=== PATIENT | female | born 1990 | race Hispanic/Latino ===

== ENCOUNTER 2022-08-19 17:01 | Inpatient (IN) | payer MEDICAID, OTHER ==
[~2022-08-19] VITALS: Ht 160 cm; Wt 108.9 kg
[2022-08-19] MEDS ORDERED: PHENAZOPYRIDINE HCL 200 MG TABLET PO ONE (17:30)
[2022-08-19 17:48] LABS: BASOPHILS % (AUTO) 0.3 % (0.0-5.0); EOSINOPHILS % (AUTO) 1.1 % (0.0-8.0); HEMATOCRIT 42.2 % (36-48); LYMPHOCYTES % (AUTO) 18.1 % (21.0-51.0); MEAN CORPUSCULAR HEMOGLOBIN 28.7 pg (27.0-33.0); MEAN CORPUSCULAR HGB CONC 33.2 g/dL (32.0-36.0); MEAN CORPUSCULAR VOLUME 86.7 fL (79-99); NEUTROPHILS % (AUTO) 73.2 % (40.0-77.0); PLATELET COUNT (AUTO) 298 K/uL (130-400); RED BLOOD CELL COUNT(AUTO) 4.87 MIL/uL (4.00-5.50); RED CELL DISTRIBUTION WIDTH 11.9 % (11.0-15.5); WHITE BLOOD COUNT (AUTO) 9.9 K/uL (4.8-10.8)
[2022-08-19 17:49] LABS: APPEARANCE,URINE CLOUDY (CLEAR); BILIRUBIN,URINE NEGATIVE (NEGATIVE); COLOR,URINE YELLOW (YELLOW); GLUCOSE, URINE (UA) NEGATIVE (NEGATIVE); KETONES,URINE NEGATIVE (NEGATIVE); LEUKOCYTE ESTERASE ,URINE 500 Leu/uL (NEGATIVE); NITRATE,URINE 2+ (NEGATIVE); PH,URINE 6.5 (5.0-8.0); PROTEIN,URINE 30 mg/dL (NEGATIVE); UROBILINOGEN,URINE 0.2 mg/dL (0.2-1.0)
[2022-08-19 17:53] LABS: HCG,QUALITATIVE URINE NEGATIVE (NEGATIVE)
[2022-08-19 17:56] LABS: CREATININE 0.9 mg/dL (0.5-1.5); POTASSIUM 3.8 mmol/L (3.5-5.1)
[2022-08-19 18:04] LABS: BACTERIA,URINE MOD /HPF (None Seen); MUCUS,URINE RARE LPF (None Seen); SQUAMOUS EPITHELIAL CELL,UR MOD /HPF (0-2); WBC,URINE 51-100 /HPF (0-1); YEAST,URINE BUDDING MANY /HPF (None Seen)
[2022-08-19 18:05] LABS: CRP QUANTITATIVE 50.1 mg/L (0.00-9.0); TOTAL PROTEIN, SERUM 8.4 g/dL (6.0-8.3)
[2022-08-19] MEDS ORDERED: PHEN-847 PO (18:24)
[2022-08-19] MEDS ORDERED: [UNRECOGNIZED DRUG - CODE] PO (18:24)
[2022-08-19] MEDS ORDERED: FLUC150T PO (18:24)
[2022-08-19] MEDS ORDERED: CEFTRIAXONE 1G VIAL IM ONE (18:30)
[2022-08-19] MEDS ORDERED: FLUCONAZOLE 100 MG TAB PO ONE (18:30)
[2022-08-19] MEDS ORDERED: MORPHINE 4 MG SYG IVP ONE (19:30)
[2022-08-19] MEDS ORDERED: 0.9%NACL 1000ML 1,000 ML IV SCH (19:30)
[2022-08-19] MEDS ORDERED: ONDANSETRON 4MG INJ IVP ONE (19:30)
[2022-08-19] MEDS: CEFTRIAXONE 1G VIAL IV SCH (20:23)
[2022-08-19] MEDS: 0.9%NACL 1000ML 1,000 ML IV SCH (20:24)
[2022-08-19] MEDS: FAMOTIDINE 20MG VIAL IV SCH (20:25)
[2022-08-19] MEDS ORDERED: MORPHINE 2 MG SYG IV PRN (20:30)
[2022-08-19] MEDS ORDERED: ACETAMINOPHEN 325 MG TAB PO PRN (20:30)
[2022-08-19 23:40] VITALS: BP 121/79
[2022-08-19] MEDS: MORPHINE 4 MG SYG IV PRN (23:56)
[2022-08-20] MEDS: 0.9%NACL 1000ML 1,000 ML IV SCH ×3 (00:01→23:57)
[2022-08-20 03:07] VITALS: BP 108/63
[2022-08-20 06:16] LABS: BASOPHILS % (AUTO) 0.4 % (0.0-5.0); EOSINOPHILS % (AUTO) 1.1 % (0.0-8.0); HEMATOCRIT 39.2 % (36-48); LYMPHOCYTES % (AUTO) 17.7 % (21.0-51.0); MEAN CORPUSCULAR HEMOGLOBIN 28.8 pg (27.0-33.0); MEAN CORPUSCULAR HGB CONC 32.9 g/dL (32.0-36.0); MEAN CORPUSCULAR VOLUME 87.5 fL (79-99); MONOCYTES % (AUTO) 7.6 % (3.0-13.0); NEUTROPHILS % (AUTO) 72.8 % (40.0-77.0); PLATELET COUNT (AUTO) 281 K/uL (130-400); RED BLOOD CELL COUNT(AUTO) 4.48 MIL/uL (4.00-5.50); WHITE BLOOD COUNT (AUTO) 8.6 K/uL (4.8-10.8)
[2022-08-20 06:29] LABS: CREATININE 0.8 mg/dL (0.5-1.5); MAGNESIUM 1.9 mg/dL (1.80-2.40); PHOSPHORUS 2.7 mg/dL (2.5-4.9)
[2022-08-20 06:44] LABS: INR 0.93 (0.85-1.15); PROTHROMBIN TIME 10.2 SEC (9.6-11.6)
[2022-08-20 06:45] LABS: PARTIAL THROMBOPLASTIN TIME 26.8 SEC (26.3-35.5)
[2022-08-20 07:50] VITALS: BP 115/70
[2022-08-20 08:32] LABS: HEMOGLOBIN A1C 5.4 % (4.0-6.0)
[2022-08-20 08:34] LABS: AMPHET/METH SCREEN,URINE NEGATIVE (NEGATIVE); BARBITURATE SCREEN, URINE NEGATIVE (NEGATIVE); BENZODIAZEPINES SCREEN,URINE NEGATIVE (NEGATIVE); CANNABINOID SCREEN,URINE NEGATIVE (NEGATIVE); COCAINE SCREEN,URINE NEGATIVE (NEGATIVE); OPIATE SCREEN,URINE NEGATIVE (NEGATIVE); PHENCYCLIDINE SCREEN,URINE NEGATIVE (NEGATIVE)
[2022-08-20] MEDS: FAMOTIDINE 20MG VIAL IV SCH ×2 (08:40→20:13)
[2022-08-20 08:44] LABS: ALBUMIN 3.4 g/dL (3.5-5.0); TOTAL PROTEIN, SERUM 7.2 g/dL (6.0-8.3)
[2022-08-20] MEDS: POLYETHYLENE GLYCOL 3350 17 GM POWD.PACK PO SCH (09:38)
[2022-08-20] MEDS: MORPHINE 4 MG SYG IV PRN (09:57)
[2022-08-20] MEDS: ONDANSETRON 4MG INJ IV PRN (10:50)
[2022-08-20 11:30] VITALS: BP 114/67
[2022-08-20] MEDS: KETOROLAC 15MG/ML VIAL (15MG/ML) IV PRN ×2 (13:12→20:13)
[2022-08-20] MEDS ORDERED: SOLU-MEDROL 125MG VIAL IVP SCH (15:00)
[2022-08-20 15:55] VITALS: BP 106/67
[2022-08-20] MEDS ORDERED: MORPHINE 4 MG SYG IV PRN (16:00)
[2022-08-20 19:25] VITALS: BP 119/67
[2022-08-20] MEDS: CEFTRIAXONE 1G VIAL IV SCH (20:14)
[2022-08-20 20:52] LABS: HEPATITIS A IGM ANTIBODY Non-Reactive (Nonreactive); HEPATITIS B CORE IGM ANTIBODY Non-Reactive (Negative); HEPATITIS B SURFACE ANTIGEN Non-Reactive (Nonreactive); HEPATITIS C ANTIBODY Non-Reactive (Nonreactive)
[2022-08-20 23:05] VITALS: BP 110/60
[2022-08-21 03:39] VITALS: BP 128/70
[2022-08-21] MEDS: ONDANSETRON 4MG INJ IV PRN (03:42)
[2022-08-21] MEDS: KETOROLAC 15MG/ML VIAL (15MG/ML) IV PRN ×2 (03:42→13:27)
[2022-08-21 07:36] VITALS: BP 119/75
[2022-08-21] MEDS: POLYETHYLENE GLYCOL 3350 17 GM POWD.PACK PO SCH (08:56)
[2022-08-21] MEDS: FAMOTIDINE 20MG VIAL IV SCH (08:56)
[2022-08-21] MEDS ORDERED: FLUCONAZOLE 100 MG TAB PO SCH (09:00)
[2022-08-21 09:19] LABS: MEAN CORPUSCULAR HEMOGLOBIN 28.7 pg (27.0-33.0); MEAN CORPUSCULAR HGB CONC 32.4 g/dL (32.0-36.0); MEAN CORPUSCULAR VOLUME 88.8 fL (79-99); RED BLOOD CELL COUNT(AUTO) 4.28 MIL/uL (4.00-5.50); RED CELL DISTRIBUTION WIDTH 11.9 % (11.0-15.5); WHITE BLOOD COUNT (AUTO) 15.4 K/uL (4.8-10.8)
[2022-08-21 09:35] LABS: ALBUMIN 3.2 g/dL (3.5-5.0); BILIRUBIN,DIRECT 0.3 mg/dL (0.0-0.3); CREATININE 0.8 mg/dL (0.5-1.5); TOTAL PROTEIN, SERUM 7.2 g/dL (6.0-8.3)
[2022-08-21] MEDS ORDERED: LACTULOSE 20 GM/30 ML UDCUP PO PRN (11:30)
[2022-08-21 11:48] VITALS: BP 122/73
== END 2022-08-21 16:50 | disposition home or self-care (01) | DRG 690 ==
LOC: EDH 17:01 → EDHIP 17:02 → WSH 23:50
PROVIDERS: ADMIT Internal Medicine; ATTEND Internal Medicine
DX: N39.0 Urinary tract infection, site not specified (principal); Z68.41 Body mass index [BMI] 40.0-44.9, adult; Z20.822 Contact with and (suspected) exposure to COVID-19; E66.01 Morbid (severe) obesity due to excess calories; F17.210 Nicotine dependence, cigarettes, uncomplicated; R51.9 Headache, unspecified; F41.1 Generalized anxiety disorder; Z90.49 Acquired absence of other specified parts of digestive tract
CPT/HCPCS: 36415; 74176; 74181; 76705; 80048; 80053; 80074; 80076; 80305; 81001; 81025; 83036; 83605; 83690; 83735; 84100; 84145; 85025; 85027; 85610; 85730; 86140; 86850; 86900; 86901; 87040; 87077; 87088; 87186; 87486; 87635; 87797; 93005; G0378; J0696; J1885; J2270; J2405; J2930; J3490; J7030

== ENCOUNTER 2023-09-07 18:11 | Emergency (ER) | payer BC ==
[~2023-09-07] VITALS: Ht 160 cm; Wt 104.3 kg
[2023-09-07 18:17] VITALS: BP 143/100; PULSE 104; RESP 18; O2SAT 96
[2023-09-07 18:47] LABS: BASOPHILS # (AUTO) 0.01 K/uL (0.00-0.20); BASOPHILS % (AUTO) 0.2 % (0.0-5.0); EOSINOPHILS # (AUTO) 0.01 K/uL (0.00-0.70); EOSINOPHILS % (AUTO) 0.2 % (0.0-8.0); HEMATOCRIT 40.5 % (36-48); IMMATURE GRANULOCYTE ABSOLUTE 0.01 K/uL (0-1); LYMPHOCYTES # (AUTO) 0.4 K/uL (1.0-4.8); LYMPHOCYTES % (AUTO) 6.8 % (21.0-51.0); MEAN CORPUSCULAR HEMOGLOBIN 29.5 pg (27.0-33.0); MEAN CORPUSCULAR HGB CONC 33.3 g/dL (32.0-36.0); MEAN CORPUSCULAR VOLUME 88.6 fL (79-99); MONOCYTES # (AUTO) 0.4 K/uL (0.1-1.0); NEUTROPHILS # (AUTO) 4.4 K/uL (1.8-7.7); NEUTROPHILS % (AUTO) 84.6 % (40.0-77.0); PLATELET COUNT (AUTO) 243 K/uL (130-400); RED BLOOD CELL COUNT(AUTO) 4.57 MIL/uL (4.00-5.50); RED CELL DISTRIBUTION WIDTH 12.4 % (11.0-15.5); WHITE BLOOD COUNT (AUTO) 5.1 K/uL (4.8-10.8)
[2023-09-07 18:52] LABS: RAPID GROUP A STREP negative (NEGATIVE)
[2023-09-07 18:54] LABS: SARS-CoV-2, RNA, NAAT NEGATIVE SARS CoV-2 (NEGATIVE)
[2023-09-07 18:57] LABS: CREATININE 0.8 mg/dL (0.5-1.5); POTASSIUM 3.4 mmol/L (3.5-5.1)
[2023-09-07 19:02] LABS: INFLUENZA TYPE B Negative For Type B (NEGATIVE)
[2023-09-07 19:07] LABS: APPEARANCE,URINE CLOUDY (CLEAR); BILIRUBIN,URINE NEGATIVE (NEGATIVE); COLOR,URINE YELLOW (YELLOW); GLUCOSE, URINE (UA) NEGATIVE (NEGATIVE); KETONES,URINE 10 mg/dL (NEGATIVE); LEUKOCYTE ESTERASE ,URINE NEGATIVE Leu/uL (NEGATIVE); NITRATE,URINE NEGATIVE (NEGATIVE); OCCULT BLOOD,URINE NEGATIVE (NEGATIVE); PROTEIN,URINE 20 mg/dL (NEGATIVE); UROBILINOGEN,URINE 3 mg/dL (0.2-1.0)
[2023-09-07 19:09] LABS: INFLUENZA TYPE A Positive For Type A (NEGATIVE)
[2023-09-07 19:12] LABS: HCG,QUALITATIVE URINE NEGATIVE (NEGATIVE)
[2023-09-07] MEDS ORDERED: OSEL75 PO (19:12)
[2023-09-07 19:13] LABS: ADD UA MICROSCOPIC YES
[2023-09-07 19:16] LABS: BACTERIA,URINE RARE /HPF (None Seen); MUCUS,URINE RARE LPF (None Seen); RBC,URINE 0-1 /HPF (0-1); SQUAMOUS EPITHELIAL CELL,UR MOD /HPF (0-2); YEAST,URINE BUDDING FEW /HPF (None Seen)
== END 2023-09-07 19:31 | disposition home or self-care (01) ==
LOC: EDH 18:11
DX: J11.1 Influenza due to unidentified influenza virus with other respiratory manifestations (principal); Z20.822 Contact with and (suspected) exposure to COVID-19
CPT/HCPCS: 99284; 71045; 87635; 84484; 80048; 85025; 87880; 87804 ×2; 81001; 81025; 36415; 93005; C9803

== ENCOUNTER → 2024-04-03 | Outpatient (CLI) | payer OTHER ==
[~2024-04-03] VITALS: Ht 7.6 cm; Wt 111.9 kg
[~2024-04-03] MED LIST: OSEL75 PO
== END | disposition home or self-care (01) ==
LOC: DTH 14:25
PROVIDERS: ATTEND Surgery
DX: E66.01 Morbid (severe) obesity due to excess calories (principal); M19.91 Primary osteoarthritis, unspecified site; K21.9 Gastro-esophageal reflux disease without esophagitis
CPT/HCPCS: 97802

== ENCOUNTER 2024-06-07 08:00 | Inpatient (IN) | payer OTHER ==
[~2024-06-07] VITALS: Ht 160 cm; Wt 108.2 kg
[2024-06-07 09:28] LABS: BASOPHILS # (AUTO) 0.02 K/uL (0.00-0.20); BASOPHILS % (AUTO) 0.3 % (0.0-5.0); EOSINOPHILS # (AUTO) 0.09 K/uL (0.00-0.70); EOSINOPHILS % (AUTO) 1.3 % (0.0-8.0); HEMATOCRIT 45.3 % (36-48); IMMATURE GRANULOCYTE ABSOLUTE 0.02 K/uL (0-1); LYMPHOCYTES # (AUTO) 1.7 K/uL (1.0-4.8); LYMPHOCYTES % (AUTO) 23.8 % (21.0-51.0); MEAN CORPUSCULAR HEMOGLOBIN 29.1 pg (27.0-33.0); MEAN CORPUSCULAR HGB CONC 32.2 g/dL (32.0-36.0); MEAN CORPUSCULAR VOLUME 90.2 fL (79-99); MONOCYTES # (AUTO) 0.7 K/uL (0.1-1.0); MONOCYTES % (AUTO) 10.1 % (3.0-13.0); NEUTROPHILS # (AUTO) 4.5 K/uL (1.8-7.7); NEUTROPHILS % (AUTO) 64.2 % (40.0-77.0); PLATELET COUNT (AUTO) 307 K/uL (130-400); RED BLOOD CELL COUNT(AUTO) 5.02 MIL/uL (4.00-5.50); RED CELL DISTRIBUTION WIDTH 12.1 % (11.0-15.5)
[2024-06-07 09:34] LABS: CREATININE 0.9 mg/dL (0.5-1.0); POTASSIUM 4.2 mmol/L (3.5-5.1)
[2024-06-07] MEDS ORDERED: DIPH25CA85 PO (09:50)
[2024-06-07] MEDS ORDERED: ACET-2743 PO (09:50)
[2024-06-07 09:51] LABS: INR 1.05 (0.85-1.15); PROTHROMBIN TIME 11.3 SEC (9.6-11.6)
[2024-06-19] VITALS (28 sets, daily range): BP systolic 105–159; BP diastolic 64–96; PULSE 70–82; RESP 15–20; TEMP 97–98.4; O2SAT 96–98
[2024-06-19] MEDS: CLINDAMYCIN IVPB 900MG/50ML 50 ML IV ONE (06:34)
[2024-06-19] MEDS: LACTATED RINGERS 1000ML 1,000 ML IV ONE (06:34)
[2024-06-19] MEDS ORDERED: BUPIvacaine/PF 0.25% 30ML VIAL IJ ONE (07:03)
[2024-06-19] MEDS ORDERED: BUPIvacaine/PF 0.25% 10ML VIAL IJ ONE (07:03)
[2024-06-19] MEDS: BUPIvacaine/PF 0.25% 30ML VIAL IJ ONE (07:24)
[2024-06-19] MEDS ORDERED: proPOFol 10 MG/ML 20ML VIAL IV ONE (07:28)
[2024-06-19] MEDS ORDERED: MIDAZOLAM HCL 1 MG/ML 2ML VIAL ONE (07:28)
[2024-06-19] MEDS ORDERED: LIDOCAINE HCL MPF 1% 5ML VIAL ONE (07:28)
[2024-06-19] MEDS ORDERED: rocuRONium bROMide 10MG/1ML 5ML VL ONE ×2 (07:28→08:07)
[2024-06-19] MEDS ORDERED: FENTanyl CITRate PF 50 MCG/1 ML 2ML VIAL ONE ×2 (07:29→08:08)
[2024-06-19] MEDS ORDERED: dexaMETHasone SOD PHOSPHATE 10MG/ML 1ML VIAL ONE (07:50)
[2024-06-19] MEDS ORDERED: ondanSETRON 4MG INJ ONE (07:50)
[2024-06-19] MEDS ORDERED: NEOSTIGMINE METHYLSULFATE 1MG/ML IV ONE (09:38)
[2024-06-19] MEDS ORDERED: GLYCOPYRROLATE 0.2 MG/ML 5 ML VIAL ONE (09:38)
[2024-06-19] MEDS: MEPERIDINE-PF 25 MG/ML SYG ONE (11:27)
[2024-06-19] MEDS: ondanSETRON 4MG INJ IVP PRN (12:32)
[2024-06-19] MEDS: acetaMINOPHEN 1,000 MG/100 ML VIAL IV ONE (12:33)
[2024-06-19] MEDS: FAMOTIDINE 20MG VIAL IV ONE (12:34)
[2024-06-19] MEDS: LACTATED RINGERS 1000ML 1,000 ML IV SCH (12:37)
[2024-06-19] MEDS: CLINDAMYCIN IVPB 900MG/50ML 50 ML IV SCH ×2 (13:25→20:28)
[2024-06-19] MEDS: morPHINE 4 MG SYG IVP PRN (16:25)
[2024-06-19] MEDS: FAMOTIDINE 20MG VIAL IV SCH (19:44)
[2024-06-20] VITALS (7 sets, daily range): BP systolic 122–135; BP diastolic 70–86; PULSE 61–77; RESP 16–18; TEMP 98–98.4; O2SAT 96
[2024-06-20] MEDS: ketOROlac 30MG VIAL (30MG/ML) IM PRN (02:54)
[2024-06-20 05:57] LABS: BASOPHILS # (AUTO) 0.02 K/uL (0.00-0.20); BASOPHILS % (AUTO) 0.2 % (0.0-5.0); EOSINOPHILS # (AUTO) 0.01 K/uL (0.00-0.70); EOSINOPHILS % (AUTO) 0.1 % (0.0-8.0); HEMATOCRIT 39.1 % (36-48); IMMATURE GRANULOCYTE ABSOLUTE 0.05 K/uL (0-1); LYMPHOCYTES # (AUTO) 1.8 K/uL (1.0-4.8); MEAN CORPUSCULAR HEMOGLOBIN 28.7 pg (27.0-33.0); MEAN CORPUSCULAR HGB CONC 32.5 g/dL (32.0-36.0); MEAN CORPUSCULAR VOLUME 88.5 fL (79-99); MONOCYTES # (AUTO) 1.4 K/uL (0.1-1.0); MONOCYTES % (AUTO) 10.9 % (3.0-13.0); NEUTROPHILS # (AUTO) 9.6 K/uL (1.8-7.7); NEUTROPHILS % (AUTO) 74.4 % (40.0-77.0); PLATELET COUNT (AUTO) 337 K/uL (130-400); RED BLOOD CELL COUNT(AUTO) 4.42 MIL/uL (4.00-5.50); WHITE BLOOD COUNT (AUTO) 12.8 K/uL (4.8-10.8)
[2024-06-20 06:07] LABS: CREATININE 1.3 mg/dL (0.5-1.0); POTASSIUM 3.9 mmol/L (3.5-5.1)
[2024-06-20] MEDS: ENOXAPARIN SODIUM 30 MG/0.3 ML SQ SCH (10:08)
[2024-06-20] MEDS: acetaMINOPHEN/coDEINE 120/12MG 5ML PO PRN ×2 (12:21→16:55)
[2024-06-20] MEDS ORDERED: ENOXAPARIN SODIUM 30 MG/0.3 ML SQ SCH (21:00)
[2024-06-21] VITALS: BP 129/75; PULSE 74; RESP 18; TEMP 98.3
[2024-06-21 06:00] VITALS: BP 130/92; PULSE 77; RESP 18; TEMP 98.3
[2024-06-21 08:00] VITALS: O2SAT 98
[2024-06-21 08:03] VITALS: BP 127/87; PULSE 74; RESP 16; TEMP 98.2
[2024-06-21 11:46] VITALS: BP 124/79; PULSE 62; RESP 18; TEMP 98.5
== END 2024-06-21 13:20 | disposition home or self-care (01) | DRG 621 ==
LOC: CANPREIN → DAHIP 06-19 05:47 → 3CH 06-19 12:15
PROVIDERS: ADMIT Surgery; ATTEND Surgery
PROC: 8E0W4CZ Robotic Assisted Procedure of Trunk Region, Percutaneous Endoscopic Approach (ICD-10-PCS; 2024-06-19)
PROC: 0D164ZA Bypass Stomach to Jejunum, Percutaneous Endoscopic Approach (ICD-10-PCS; principal; 2024-06-19 07:30)
DX: E66.01 Morbid (severe) obesity due to excess calories (principal); Z68.41 Body mass index [BMI] 40.0-44.9, adult; Z88.0 Allergy status to penicillin
CPT/HCPCS: 36415; 43235; 71045; 80048; 81025; 84703; 85025; 85610; 85730; 93005; G0378; J1100; J1650; J1885; J2175; J2250; J2270; J2405; J2704; J2710; J3010; J3490; J7030; J7120; A4215; A4216; A4221; A4222; A4223; A4600; A4663; A4930; A6260; C1769; G0168; G8980-CH; G8983-CI; J0665

== ENCOUNTER 2024-08-25 13:29 | Inpatient (IN) | payer BC ==
[~2024-08-25] VITALS: Ht 160 cm; Wt 98.0 kg
[~2024-08-25 13:29] MED LIST changes: +ACET-2743 PO; +DIPH25CA85 PO; -OSEL75 PO
[2024-08-25 14:02] LABS: BASOPHILS # (AUTO) 0.02 K/uL (0.00-0.20); BASOPHILS % (AUTO) 0.3 % (0.0-5.0); EOSINOPHILS # (AUTO) 0.01 K/uL (0.00-0.70); EOSINOPHILS % (AUTO) 0.1 % (0.0-8.0); HEMATOCRIT 38.8 % (36-48); IMMATURE GRANULOCYTE ABSOLUTE 0.03 K/uL (0-1); LYMPHOCYTES # (AUTO) 1.7 K/uL (1.0-4.8); LYMPHOCYTES % (AUTO) 21.3 % (21.0-51.0); MEAN CORPUSCULAR HEMOGLOBIN 28.8 pg (27.0-33.0); MEAN CORPUSCULAR HGB CONC 32.2 g/dL (32.0-36.0); MEAN CORPUSCULAR VOLUME 89.4 fL (79-99); MONOCYTES # (AUTO) 0.4 K/uL (0.1-1.0); MONOCYTES % (AUTO) 5.7 % (3.0-13.0); NEUTROPHILS # (AUTO) 5.6 K/uL (1.8-7.7); NEUTROPHILS % (AUTO) 72.2 % (40.0-77.0); PLATELET COUNT (AUTO) 304 K/uL (130-400); RED BLOOD CELL COUNT(AUTO) 4.34 MIL/uL (4.00-5.50); RED CELL DISTRIBUTION WIDTH 13.3 % (11.0-15.5); WHITE BLOOD COUNT (AUTO) 7.7 K/uL (4.8-10.8)
[2024-08-25 14:15] LABS: CREATININE 0.9 mg/dL (0.5-1.0); POTASSIUM 3.7 mmol/L (3.5-5.1)
[2024-08-25 14:19] LABS: ALBUMIN 3.7 g/dL (3.5-5.0); BILIRUBIN,DIRECT 0.2 mg/dL (0.0-0.3); BILIRUBIN,TOTAL 0.4 mg/dL (0.2-1.0); TOTAL PROTEIN, SERUM 8.2 g/dL (6.0-8.3)
--- NOTE | 2024-08-25 14:28 | ERN ---
ED Note History of Present Illness Stated Complaint: CHEST PAIN Chief Complaint: Chest Pain Time Seen by MD: 16:36 Dictation: 34-year-old female presents to the ED for evaluation of abdominal pain onset 2 days ago. Patient reports nausea, vomiting, chills, constipation, decreased appetite but denies any fever, diarrhea or any other associated symptoms at this time. Patient states she had a gastric bypass surgery performed on June 22, 2024 and then a bowel obstruction repair on June 27, 2024 by at [facility]. Allergies: Coded Allergies: Penicillins (Unverified Allergy, Unknown, 08/19/22) Home Meds Active Scripts Lidocaine (Lidoderm Patch 5%) 5 % Patch, 1 PATCH TP DAILY for 30 Days, #30 PATCH 0 Refills may wear up to 12 hours Prov:NEGRITO BUCHANAN MD 09/03/24 Reported Medications Diphenhydramine HCl (Benadryl) 25 Mg Capsule, 25 MG PO AD PRN for ALLERGIES, CAP 06/07/24 Acetaminophen (Tylenol Extra Strength) 500 Mg Tablet, 1000 MG PO AD PRN for PAIN, TAB 06/07/24 Past Medical History Past Medical History: No Pertinent History Additional Past Medical Hx: Morbidly obese Surgical History: Other, Bariatric Surgery Surgical History Other: BOWEL OBSTRUCTION REPAIR Family History: Negative Social History: Lives with family Review of System Dictation Constitutional: Positive for chills, decreased appetite, negative for fever Eyes: Negative for injury, pain,redness, and discharge ENT: Negative for injury,pain or swelling Cardiovascular: Negative for chest pain, palpitations, and edema Respiratory: Negative for shortness of breath, cough, and wheezing, Abdomen/GI: Positive for abdominal pain, nausea, vomiting and constipation negative for diarrhea Back: Negative for injury and pain : Negative for injury, bleeding and discharge MS/Extremity: Negative for injury and deformity Skin: Negative for rash, and discoloration Neuro: Negative for headache, weakness, numbness, tingling, and seizure Psych: Negative for suicide ideation, homicidal ideation, and hallucinations Initial Vital Sign VS Vital Signs Date Time Temp Pulse Resp B/P (MAP) Pulse Ox O2 Delivery O2 Flow Rate FiO2 08/25/24 13:33 97.0 98 20 132/90 99 Room Air 0 08/25/24 13:58 21 Physical Exam Dictation General: awake, alert, NAD Head/Face: Normocephalic, atraumatic Eyes: PERRL, EOMI, vision at baseline ENT: oral cavity clear, TMs clear, no signs of infection Neck: Trachea midline, supple, no nuchal rigidity Cardiovascular: RRR, normal S1/S2, No MRGs, no JVD Respiratory: CTAB, no respiratory distress, No rales or wheezes Abdomen: Soft, non-tender, non-distended, wound with wet to dry dressings to mid abdominal region Skin: Warm, dry, normal turgor, no rash MS/Extremity: Pulses equal, no cyanosis, neurovascular intact, FROM Neuro: COAx4, GCS 15, strength 5/5, CN 2-12 intact, normal cerebellar exam, normal gait, Psych: Normal behavior, mood, and affect normal Results (Laboratory/Radiology) Laboratory/Radiology Labs Reviewed?: Yes ED Course ED Course Orders Procedure Category Date Status Time *Nursing CPOE 09/03/24 Transmitted Communication: 12:54 *General Dc DS 09/03/24 Transmitted Instructions 14:36 Medical Decision Making MDM MDM: Differential diagnosis: Small-bowel obstruction, postop, vomiting Previous outside records reviewed: Old ER visits. Need for hospitalization: Patient does meet criteria for hospitalization. Need for emergency major/minor surgery: No Patient's prior external medical records from other ER visits were reviewed by me as indicated. Prior testing and results from previous visits were reviewed. Prior tests were taken into account with medical decision making and resource utilization, independent historian/historians were used to obtain complete medical history. I independently interpreted the test that were performed, results were reviewed by me and considered findings on radiology if ordered. Medical management and examination interpretation discussions were had by me with other qualified healthcare professionals as indicated for the patient's care. vss LABS STABLE UTI+ continues with nausea will admit for Dr Han consult on Tuesday Consult: hospitalist for admission DX & DISP Disposition: Inpatient Departure Impression: Primary Impression: Vomiting Additional Impressions: Post-operative pain, H/O gastric bypass, UTI (urinary tract infection) Condition: Stable Scripts Lidocaine (Lidoderm Patch 5%) 5 % Patch 1 PATCH TP DAILY for 30 Days, #30 PATCH 0 Refills may wear up to 12 hours Prov: NEGRITO BUCHANAN MD 09/03/24 Referrals: SELF,REFERRAL (PCP) I have reviewed, & agreed with my scribe's, documentation. (Entered by Brainda Kelsi, acting as a scribe for Dr. Means) I personally scribed for ELLYN MEANS MD ([email or web address]) on 08/25/24 at 14:28. Electronically submitted by Jacqueline Dolan ([email or web address]). ELLYN MEANS MD Aug 25, 2024 14:28 [facility] DAILY DO Aug 25, 2024 17:49
[2024-08-25 14:31] LABS: B-TYPE NATRIURETIC PEPTIDE < 5 pg/mL (0-100)
[2024-08-25] MEDS: ondanSETRON 4MG INJ IVP ONE (14:31)
[2024-08-25] MEDS: 0.9%NACL 1000ML 1,000 ML IV ONE (14:31)
[2024-08-25] MEDS: morPHINE 4 MG SYG IVP ONE (14:32)
--- NOTE | 2024-08-25 14:40 | NUR ---
PENDING TEST RESULTS FOR CT EXAM.
--- NOTE | 2024-08-25 14:40 | HMCIMG ---
CHEST 1VW HISTORY: Chest pain COMPARISON: 07/10/2024 FINDINGS: A frontal projection of the chest was obtained. No acute pulmonary infiltrates is seen. The heart is normal in size. Prominent interstitial markings are seen. No evidence of aortic calcification is seen. IMPRESSION: 1. No acute pulmonary infiltrate is seen.
--- NOTE | 2024-08-25 15:08 | EKG ---
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
[2024-08-25] MEDS: hydroMORPHone 0.5 MG SYG (0.5MG/0.5ML) IVP ONE (15:52)
--- NOTE | 2024-08-25 17:08 | HMCIMG ---
CT ABD/PEL WO CON RENAL/APPY INDICATION: abdominal pain TECHNIQUE: CT ABD/PEL WO CON RENAL/APPY. Oral contrast was not given. Coronal and sagittal reformats were performed. CT was performed with one or more of the following dose reduction techniques: Automated exposure control, adjustment of the mA and/or kV according to the patient's size, or use of the iterative reconstruction technique. Comparison: None. FINDINGS: The noncontrast nature this study limits evaluation of abdominal viscera. Mild atelectatic changes are seen in the lung bases. There is hepatic steatosis. Cholecystectomy changes are noted. Postop changes are seen in the stomach. The spleen, pancreas, and adrenal glands are within normal limits. No hydronephrosis. The urinary bladder is partially collapsed. IUD is seen in the uterus. No bowel obstruction is seen. Diverticulosis coli without CT evidence of acute diverticulitis. The appendix was not clearly visualized limiting evaluation. Correlate clinically. Midline incision is seen in the lower abdominal/pelvic wall with complex material which may may represent postoperative changes versus dehiscent midline incision. Correlate clinically. Visualized aorta is normal in caliber. No acute osseous findings. IMPRESSION: 1. No bowel obstruction is seen. Diverticulosis coli without CT evidence of acute diverticulitis. The appendix was not clearly visualized limiting evaluation. Correlate clinically. 2. Midline incision is seen in the lower abdominal/pelvic wall with complex material which may may represent postoperative changes versus dehiscent midline incision. Correlate clinically.
[2024-08-25 17:10] LABS: BILIRUBIN,URINE 2 mg/dL (NEGATIVE); GLUCOSE, URINE (UA) NEGATIVE (NEGATIVE); KETONES,URINE NEGATIVE (NEGATIVE); LEUKOCYTE ESTERASE ,URINE NEGATIVE Leu/uL (NEGATIVE); NITRATE,URINE 2+ (NEGATIVE); OCCULT BLOOD,URINE NEGATIVE (NEGATIVE); PROTEIN,URINE 50 mg/dL (NEGATIVE)
[2024-08-25 17:11] LABS: ADD UA MICROSCOPIC YES; HCG,QUALITATIVE URINE NEGATIVE (NEGATIVE)
[2024-08-25 17:12] LABS: APPEARANCE,URINE HAZY (CLEAR); COLOR,URINE ORANGE (YELLOW)
[2024-08-25 17:27] LABS: BACTERIA,URINE FEW /HPF (None Seen); MUCUS,URINE MANY LPF (None Seen); SQUAMOUS EPITHELIAL CELL,UR MANY /HPF (0-2)
[2024-08-25] MEDS: hydroMORPHone 0.5 MG SYG (0.5MG/0.5ML) IVP PRN (18:58)
--- NOTE | 2024-08-25 19:58 | HP ---
[facility] Date of Service: Aug 25, 2024 Time of Service: 19:21 PCP: Oz Howard HISTORY OF PRESENT ILLNESS: This is a 34 year old with past medical history of morbid obesity and bowel obstruction and a surgical history of gastric bypass who presents to the ED for multiple complaints such as :abdominal pain,nausea, chills ,constipation and chest pain which all started 4 days ago.Patient states she had a gastric bypass surgery done on 06/2024 by and patient went home and was admitted on 06/23/2024 for bowel obstruction and on 06/27/2024 she underwent a laparoscopic converted to an open laparotomy small bowel resection and reconstruction of jejunojejunal anastomosis and 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 and patient was on IV antibiotic and TPN and surgical wound required abdominal dressing change TID and patient transitioned to LTAC at [facility] facility.As per patient she was discharged home and being visited by home health nurse .As pre patient her incision site is draining feces smell like and she started having nauseated but no vomiting.Patient reports she started having on and off chest pain and becoming weak.Today symptoms have been becoming worse midsternal chest pain is becoming persistent ,described as chest pressure which radiates to left arm associated with diaphoresis and shortness of breath while laying down.Patient states she called and her PCP who advised her to come to the ED for evaluation.Patient last bowel movement was 5 days ago she sa id. Seen and examined patient in the ER awake,alert and coherent continues to complain of midsternal chest pressure,nausea and abdominal pain around surgical site.Patient also complain of back pain and dysuria.Patient denies fever,vomiting ,palpitation,cough and diarrhea. Latest vital signs temperature 97, heart rate 95, blood pressure 130/85 saturation 99% on room air. Labs: C BC unremarkable. Sodium 135, chloride 98, glucose 112, AST 51, ALT 104 troponin five BNP less than five lipase 99 serum test negative. Urinalysis consistent with urinary tract infection. Chest x-ray result is unremarkable. CT abdomen and pelvis without contrast result revealed no bowel obstruction is seen. Diverticulosis coli without CT evidence of acute diverticulitis. The appendix was not clearly visualized limiting evaluation. Correlate clinically. Midline incision is seen in the lower abdominal/pelvic wall with complex material which may represent post operative changes versus dehiscent midline incision. While in the ER patient received Dilaudid 0.5 mg, 1 L NS bolus, Zofran 4 mg IV and morphine 4 mg IV .As per ER MD to consult on Tuesday .Will admit patient for further medical management. REVIEW OF SYSTEMS CONSTITUTIONAL: Positive chills and diaphoresis Denies fevers or night sweats. No unintentional weight loss reported. NEUROLOGICAL: Denies headache, amaurosis fugax, motor weakness, sensory deficit, vertigo/spinning sensation, gait abnormalities, or tremors. ENT: No hearing loss, otalgia, otorrhea, rhinitis, rhinorrhea, hoarseness, or sore throat. CARDIOVASCULAR: Positive chest pain Denies orthopnea, paroxysmal nocturnal dyspnea, palpitations, life-threatening arrhythmias, claudication. PULMONARY: Positive shortness of breath Denies cough, phlegm/sputum, hemoptysis, pleuritic chest pain. SLEEP: Denies morning headaches, daytime somnolence or napping. Denies difficulty falling asleep, staying asleep, waking from sleep. Denies knowledge of snoring. GASTROINTESTINAL: Positive nausea , constipation and abdominal pain Denies any type of dysphagia to either liquids or solids. Denies pyrosis, early satiety,, diarrhea, constipation, or changes in stool consistency or caliber. Denies co ffee-ground emesis, hematemesis, hematochezia, or melanotic stools. GENITOURINARY: Positive dysuria and low back pain Denies frequency, urgency, nocturia, hematuria or incontinence (Storage/Irritative symptoms.) Low urinary stream, splitting of the voiding stream, terminal dribbling. ENDOCRINOLOGIC: Denies polyuria, polydipsia, polyphagia or heat/cold intolerances. HEMATOLOGIC: Denies thrombophilia/previous clots, or coagulopathy/bleeding disorders. ONCOLOGIC: Denies personal history of malignancy. DERMATOLOGIC: Denies rashes or pruritus. PSYCHIATRIC: Denies any suicidal or homicidal ideation. Denies hallucinations. 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 Patient denies alcohol tobacco and recreational drug use] FAMILY HISTORY: [ Hypertension and diabetes ] Coded Allergies: Penicillins (Unverified Allergy, Unknown, 08/19/22) PHYSICAL EXAM GENERAL APPEARANCE: The patient is awake, alert, and oriented, in no acute cardiopulmonary distress. NEUROLOGICAL: Cranial nerves II-XII grossly intact. Motor is 5/5 in bilateral upper and lower extremities proximal to distal. No sensory deficits. HEENT: Face is symmetric. Pupils are equal and reactive. Extraocular movements are intact. NECK: Supple. No JVD. No thyromegaly. No submental, submandibular, pre- /postauricular, occipital or supraclavicular lymphadenopathy. CHEST: Normal chest expansion. No Telemetry. LUNGS: Absence of any rales, rhonchi or any wheezing. CARDIOVASCULAR: Regular. S1 and S2 normal. No appreciable rubs, murmurs or gallops. ABDOMEN: Soft and nondistended. There is no rebound, voluntary guarding, or rigidity. : Deferred. No Olson. EXTREMITIES: Non-edematous and not cyanotic. No clubbing. Good capillary refill. SKIN: Abdominal incision covered Vital Sign (Last 24 Hours) 08/25/24 13:58 Temp 97.0 Pulse 95 Resp 20 B/P (MAP) 130/85 Pulse Ox 99 O2 Delivery Room Air* O2 Flow Rate 0 FiO2 21 LABS: Laboratory: Test 08/25/24 16:58 08/25/24 13:58 08/25/24 13:38 Range/Units Urine Color ORANGE H YELLOW Urine Appearance HAZY CLEAR Urine pH 6.0 5.0-8.0 Urine Specific [place] 1.028 1.001-1.031 Urine Protein 50 H NEGATIVE mg/dL Urine Glucose (UA) NEGATIVE NEGATIVE mg/dL Urine Ketones NEGATIVE NEGATIVE mg/dL Urine Occult Blood NEGATIVE NEGATIVE Urine Nitrate 2+ H NEGATIVE Urine Bilirubin 2 H NEGATIVE mg/dL Urine Urobilinogen 4.0 H 0.2-1.0 mg/dL Urine Leukocyte Esterase NEGATIVE NEGATIVE Jennifer/uL Urine RBC 2-5 H 0-1 /HPF Urine WBC 11-25 H 0-1 /HPF Urine Squamous Epithelial Cells MANY 0-2 /HPF Urine Bacteria FEW None Seen /HPF Urine HCG, Qualitative NEGATIVE NEGATIVE Serum Test, Qualitative NEGATIVE NEGATIVE White Blood Count 7.7 4.8-10.8 K/uL Red Blood Count 4.34 4.00-5.50 MIL/uL Hemoglobin 12.5 12.0-16.0 g/dL Hematocrit 38.8 36-48 % Mean Corpuscular Volume 89.4 79-99 fL Mean Corpuscular Hemoglobin 28.8 27.0-33.0 pg Mean Corpuscular Hemoglobin Concent 32.2 32.0-36.0 g/dL Red Cell Distribution Width 13.3 11.0-15.5 % Platelet Count 304 130-400 K/uL Mean Platelet Volume 9.3 7.5-10.5 fL Immature Granulocyte % (Auto) 0.4 0-1 % Neutrophils (%) (Auto) 72.2 40.0-77.0 % Lymphocytes (%) (Auto) 21.3 21.0-51.0 % Monocytes (%) (Auto) 5.7 3.0-13.0 % Eosinophils (%) (Auto) 0.1 0.0-8.0 % Basophils (%) (Auto) 0.3 0.0-5.0 % Neutrophils # (Auto) 5.6 1.8-7.7 K/uL Lymphocytes # (Auto) 1.7 1.0-4.8 K/uL Monocytes # (Auto) 0.4 0.1-1.0 K/uL Eosinophils # (Auto) 0.01 0.00-0.70 K/uL Basophils # (Auto) 0.02 0.00-0.20 K/uL Absolute Immature Granulocyte (auto 0.03 0-1 K/uL Nucleated Red Blood Cells 0.0 0.0-0.19 % Sodium Level 135 L 136-145 mmol/L Potassium Level 3.7 3.5-5.1 mmol/L Chloride Level 98 L 101-111 mmol/L Carbon Dioxide Level 29 21-32 mmol/L Blood Urea Nitrogen 9 7-18 mg/dL Creatinine 0.9 0.5-1.0 mg/dL Glomerular Filtration Rate Calc 86 >90 mL/min Random Glucose 112 H 70-105 mg/dL Total Calcium 9.6 8.5-10.1 mg/dL Total Bilirubin 0.4 0.2-1.0 mg/dL Direct Bilirubin 0.2 0.0-0.3 mg/dL Aspartate Amino Transf (AST/SGOT) 51 H 10-37 U/L Alanine Aminotransferase (ALT/SGPT) 104 H 12-78 U/L Alkaline Phosphatase 107 50-136 U/L Total Creatine Kinase 34 21-232 U/L Troponin I High Sensitivity 5 4-50 ng/L B-Type Natriuretic Peptide < 5 0-100 pg/mL Total Protein 8.2 6.0-8.3 g/dL Albumin 3.7 3.5-5.0 g/dL Lipase 99 H 16-77 U/L Current Medications Medications (Trade) Dose Ordered Sig/Ara Route PRN Reason Start Time Stop Time Status Last Admin Dose Admin Hydromorphone HCl (DiLAUDid 0.5MG INJ) 0.5 mg Q4H PRN IVP SEVERE PAIN (7-10) 08/25/24 18:30 08/30/24 18:29 08/25/24 18:58 0.5 MG DIAGNOSTICS / RADIOLOGY: [ ] ASSESSMENT: Chest pain unspecified POA Intractable nausea and abdominal pain POA Acute urinary tract infection POA Postoperative pain POA Recent laparoscopic converted to an open laparotomy small bowel resection and reconstruction of jejunojejunal anastomosis POA Elevated liver enzymes POA Elevated lipase POA Recent small enterocutaneous fistula POA Obesity POA History of gastric bypass POA PLAN: We will admit patient in medical telemetry We will keep patient nothing by mouth We will start patient on Rocephin 2 gram IV for empiric coverage We will start on Famotidine 20 mg IV bid for GI prophylaxis We will replace electrolytes as needed per protocol We will start patient on TPN at 88 mL/hour We will add prn medication for fever,pain,cough and nausea We will reconcile home meds once medlist available We will trend troponin q.6 hours x3 We will request urine toxicology We will request labs in am We will seek general surgery consultation Further orders to follow depending on above results Case discussed with attending physician and came up with above treatment and plan of care. ADVANCED CARE PLANNING 1. Which of the following were discussed? Hospice Care - No Therapeutic options - Yes Advance Directives - No Other discussions - 2. Discussed with who? Patient 3. Voluntary nature of this service was explained to the patient? Yes 4. Amount of time spent - ___19____ 5. Reviewed by Physician? (if this service was performed by NPP) Yes Patient seen and examined by me. Agree with note by GENERAL FOUNDRY WORKER SEE ADDITIONAL ORDERS PER CHART DISCUSSED WITH NURSING STAFF CAROLNY ROBLESP Aug 25, 2024 19:58
[2024-08-25] MEDS ORDERED: cefTRIAXone 1G VIAL 2 GM in 0.9%NACL 100ML 100 ML IV SCH (20:00)
[2024-08-25] MEDS: LACTATED RINGERS 1000ML 1,000 ML IV SCH (20:55)
[2024-08-25] MEDS: CEFTRIAXONE 2GM VIAL IVPB SCH (20:55)
--- NOTE | 2024-08-25 21:15 | NUR ---
PROVIDED REPORT TO [facility] TRANSFERED CARE AT THIS TIME
[2024-08-25] MEDS: FAMOTIDINE 20MG VIAL IV SCH (22:30)
[2024-08-25 23:39] LABS: AMPHET/METH SCREEN,URINE NEGATIVE (NEGATIVE); BARBITURATE SCREEN, URINE NEGATIVE (NEGATIVE); BENZODIAZEPINES SCREEN,URINE NEGATIVE (NEGATIVE); CANNABINOID SCREEN,URINE NEGATIVE (NEGATIVE); COCAINE SCREEN,URINE NEGATIVE (NEGATIVE); OPIATE SCREEN,URINE POSITIVE (NEGATIVE); PHENCYCLIDINE SCREEN,URINE NEGATIVE (NEGATIVE)
--- NOTE | 2024-08-26 | NUR ---
PATIENT NOT ON ANY HOME MEDICATIONS.
--- NOTE | 2024-08-26 00:05 | NUR ---
PATIENT SPOKE WITH DIRECTLY AT 1635. PER PATIENT DR. SLIVA IS AWARE OF HER ADMISSION, HE IS CURRENTLY OUT OF TOWN AND WILL SEE HER ON TUESDAY.
[2024-08-26 02:07] LABS: BASOPHILS # (AUTO) 0.02 K/uL (0.00-0.20); BASOPHILS % (AUTO) 0.3 % (0.0-5.0); EOSINOPHILS # (AUTO) 0.17 K/uL (0.00-0.70); EOSINOPHILS % (AUTO) 2.7 % (0.0-8.0); HEMATOCRIT 32.7 % (36-48); IMMATURE GRANULOCYTE ABSOLUTE 0.01 K/uL (0-1); LYMPHOCYTES # (AUTO) 2.2 K/uL (1.0-4.8); LYMPHOCYTES % (AUTO) 35.1 % (21.0-51.0); MEAN CORPUSCULAR HEMOGLOBIN 28.7 pg (27.0-33.0); MEAN CORPUSCULAR HGB CONC 32.4 g/dL (32.0-36.0); MEAN CORPUSCULAR VOLUME 88.6 fL (79-99); MONOCYTES # (AUTO) 0.5 K/uL (0.1-1.0); MONOCYTES % (AUTO) 7.7 % (3.0-13.0); NEUTROPHILS # (AUTO) 3.5 K/uL (1.8-7.7); PLATELET COUNT (AUTO) 245 K/uL (130-400); RED BLOOD CELL COUNT(AUTO) 3.69 MIL/uL (4.00-5.50); RED CELL DISTRIBUTION WIDTH 13.6 % (11.0-15.5); WHITE BLOOD COUNT (AUTO) 6.4 K/uL (4.8-10.8)
[2024-08-26 02:25] LABS: ALBUMIN 2.9 g/dL (3.5-5.0); BILIRUBIN,TOTAL 0.3 mg/dL (0.2-1.0); CREATININE 0.7 mg/dL (0.5-1.0); MAGNESIUM 1.9 mg/dL (1.80-2.40); POTASSIUM 3.4 mmol/L (3.5-5.1); TOTAL PROTEIN, SERUM 6.4 g/dL (6.0-8.3)
--- NOTE | 2024-08-26 04:52 | NUR ---
patient up to restroom, reports small bowel movement, normal consistency, brown in color, no difficulty or pain with bowel movement
[2024-08-26] MEDS: ondanSETRON 4MG INJ IV PRN (04:57)
[2024-08-26 08:40] VITALS: O2SAT 96
--- NOTE | 2024-08-26 08:43 | PN ---
[facility] PROGRESS NOTE Date of Service: Aug 26, 2024 Time of Service: 08:41 SUBJECTIVE: [ ] The patient has been seen and examined in the emergency room, she remains comfortably in bed, alert oriented x3, hemodynamically stable, BP 110/63, afebrile, saturating normal on room air. She denied chest pain, no shortness a breath, no nausea, no vomiting, no abdominal discomfort. She feels weak. No family members at bedside during my visit. REVIEW OF SYSTEMS CONSTITUTIONAL: Positive chills and diaphoresis Denies fevers or night sweats. No unintentional weight loss reported. NEUROLOGICAL: Denies headache, amaurosis fugax, motor weakness, sensory deficit, vertigo/spinning sensation, gait abnormalities, or tremors. ENT: No hearing loss, otalgia, otorrhea, rhinitis, rhinorrhea, hoarseness, or sore throat. CARDIOVASCULAR: Positive chest pain Denies orthopnea, paroxysmal nocturnal dyspnea, palpitations, life-threatening arrhythmias, claudication. PULMONARY: Positive shortness of breath Denies cough, phlegm/sputum, hemoptysis, pleuritic chest pain. SLEEP: Denies morning headaches, daytime somnolence or napping. Denies difficulty falling asleep, staying asleep, waking from sleep. Denies knowledge of snoring. GASTROINTESTINAL: Positive nausea , constipation and abdominal pain Denies any type of dysphagia to either liquids or solids. Denies pyrosis, early satiety,, diarrhea, constipation, or changes in stool consistency or caliber. Denies coffee-ground emesis, hematemesis, hematochezia, or melanotic stools. GENITOURINARY: Positive dysuria and low back pain Denies frequency, urgency, nocturia, hematuria or incontinence (Storage/Irritative symptoms.) Low urinary stream, splitting of the voiding stream, terminal dribbling. ENDOCRINOLOGIC: Denies polyuria, polydipsia, polyphagia or heat/cold intolerances. HEMATOLOGIC: Denies thrombophilia/previous clots, or coagulopathy/bleeding disorders. ONCOLOGIC: Denies personal history of malignancy. DERMATOLOGIC: Denies rashes or pruritus. PSYCHIATRIC: Denies any suicidal or homicidal ideation. Denies hallucinations. PHYSICAL EXAM GENERAL APPEARANCE: The patient is awake, alert, and oriented, in no acute cardiopulmonary distress. NEUROLOGICAL: Cranial nerves II-XII grossly intact. Motor is 5/5 in bilateral upper and lower extremities proximal to distal. No sensory deficits. HEENT: Face is symmetric. Pupils are equal and reactive. Extraocular movements are intact. NECK: Supple. No JVD. No thyromegaly. No submental, submandibular, pre- /postauricular, occipital or supraclavicular lymphadenopathy. CHEST: Normal chest expansion. No Telemetry. LUNGS: Absence of any rales, rhonchi or any wheezing. CARDIOVASCULAR: Regular. S1 and S2 normal. No appreciable rubs, murmurs or gallops. ABDOMEN: Soft and nondistended. There is no rebound, voluntary guarding, or rigidity. : Deferred. No Olson. EXTREMITIES: Non-edematous and not cyanotic. No clubbing. Good capillary re fill. SKIN: Abdominal incision covered Vital Signs (last 8hr) Date Time Temp Pulse Resp B/P (MAP) Pulse Ox O2 Delivery O2 Flow Rate FiO2 08/26/24 06:45 79 15 110/63 98 Room Air* 0 21 08/26/24 04:52 97.9 76 14 110/73 99 Room Air* 0 21 08/26/24 02:48 66 18 117/69 97 Room Air* 0 21 08/26/24 01:15 98.2 77 18 117/69 98 Room Air* 0 21 LABS: Laboratory: Test 08/26/24 02:00 08/25/24 16:58 08/25/24 13:58 08/25/24 13:38 Range/Units White Blood Count 6.4 4.8-10.8 K/uL Red Blood Count 3.69 L 4.00-5.50 MIL/uL Hemoglobin 10.6 L 12.0-16.0 g/dL Hematocrit 32.7 L 36-48 % Mean Corpuscular Volume 88.6 79-99 fL Mean Corpuscular Hemoglobin 28.7 27.0-33.0 pg Mean Corpuscular Hemoglobin Concent 32.4 32.0-36.0 g/dL Red Cell Distribution Width 13.6 11.0-15.5 % Platelet Count 245 130-400 K/uL Mean Platelet Volume 9.5 7.5-10.5 fL Immature Granulocyte % (Auto) 0.2 0-1 % Neutrophils (%) (Auto) 54.0 40.0-77.0 % Lymphocytes (%) (Auto) 35.1 21.0-51.0 % Monocytes (%) (Auto) 7.7 3.0-13.0 % Eosinophils (%) (Auto) 2.7 0.0-8.0 % Basophils (%) (Auto) 0.3 0.0-5.0 % Neutrophils # (Auto) 3.5 1.8-7.7 K/uL Lymphocytes # (Auto) 2.2 1.0-4.8 K/uL Monocytes # (Auto) 0.5 0.1-1.0 K/uL Eosinophils # (Auto) 0.17 0.00-0.70 K/uL Basophils # (Auto) 0.02 0.00-0.20 K/uL Absolute Immature Granulocyte (auto 0.01 0-1 K/uL Nucleated Red Blood Cells 0.0 0.0-0.19 % Sodium Level 138 136-145 mmol/L Potassium Level 3.4 L 3.5-5.1 mmol/L Chloride Level 103 101-111 mmol/L Carbon Dioxide Level 30 21-32 mmol/L Blood Urea Nitrogen 7 7-18 mg/dL Creatinine 0.7 0.5-1.0 mg/dL Glomerular Filtration Rate Calc 116 >90 mL/min Random Glucose 91 70-105 mg/dL Total Calcium 8.9 8.5-10.1 mg/dL Magnesium Level 1.90 1.80-2.40 mg/dL Total Bilirubin 0.3 # 0.2-1.0 mg/dL Aspartate Amino Transf (AST/SGOT) 59 H 10-37 U/L Alanine Aminotransferase (ALT/SGPT) 102 H 12-78 U/L Alkaline Phosphatase 87 50-136 U/L Troponin I High Sensitivity 6 4-50 ng/L Total Protein 6.4 # 6.0-8.3 g/dL Albumin 2.9 #L 3.5-5.0 g/dL Urine Color ORANGE H YELLOW Urine Appearance HAZY CLEAR Urine pH 6.0 5.0-8.0 Urine Specific Burton 1.028 1.001-1.031 Urine Protein 50 H NEGATIVE mg/dL Urine Glucose (UA) NEGATIVE NEGATIVE mg/dL Urine Ketones NEGATIVE NEGATIVE mg/dL Urine Occult Blood NEGATIVE NEGATIVE Urine Nitrate 2+ H NEGATIVE Urine Bilirubin 2 H NEGATIVE mg/dL Urine Urobilinogen 4.0 H 0.2-1.0 mg/dL Urine Leukocyte Esterase NEGATIVE NEGATIVE Jennifer/uL Urine RBC 2-5 H 0-1 /HPF Urine WBC 11-25 H 0-1 /HPF Urine Squamous Epithelial Cells MANY 0-2 /HPF Urine Bacteria FEW None Seen /HPF Urine HCG, Qualitative NEGATIVE NEGATIVE Urine Opiates Screen POSITIVE H NEGATIVE Urine Barbiturates Screen NEGATIVE NEGATIVE Urine Phencyclidine Screen NEGATIVE NEGATIVE Urine Amphetamines Screen NEGATIVE NEGATIVE Urine Benzodiazepines Screen NEGATIVE NEGATIVE Urine Cocaine Screen NEGATIVE NEGATIVE Urine Marijuana (THC) Screen NEGATIVE NEGATIVE Serum Test, Qualitative NEGATIVE NEGATIVE Direct Bilirubin 0.2 0.0-0.3 mg/dL Total Creatine Kinase 34 21-232 U/L B-Type Natriuretic Peptide < 5 0-100 pg/mL Lipase 99 H 16-77 U/L Current Medications Medications (Trade) Dose Ordered Sig/Ara Route PRN Reason Start Time Stop Time Status Last Admin Dose Admin Ceftriaxone Sodium 2 gm/ Sodium Chloride 100 ml @ 200 mls/hr Q24H IV 08/25/24 20:00 08/25/24 20:13 DC Ceftriaxone Sodium (Rocephin 2gm Inj) 2 gm Q24H IVPB 08/25/24 20:30 09/04/24 20:29 08/25/24 20:55 2 GM Famotidine (Pepcid 20mg Vial) 20 mg BID IV 08/25/24 21:00 09/24/24 20:59 08/25/24 22:30 20 MG Hydromorphone HCl (DiLAUDid 0.5MG INJ) 0.5 mg Q4H PRN IVP SEVERE PAIN (7-10) 08/25/24 18:30 08/30/24 18:29 08/26/24 04:57 0.5 MG Lactated Ringer's 1,000 ml @ 100 mls/hr Q10H IV 08/25/24 20:00 09/24/24 19:59 08/26/24 07:27 100 MLS/HR Ondansetron HCl (zoFRAN 4MG INJ) 4 mg Q6H PRN IV NAUSEA/VOMITING 08/25/24 20:00 09/24/24 19:59 08/26/24 04:57 4 MG Pharmacy Profile Note (Pharmacy Communication) 1 each AD MISC 08/26/24 09:00 08/25/24 20:23 DC DIAGNOSTICS / RADIOLOGY: [ ] CT ABD/PEL WO CON RENAL/APPY INDICATION: abdominal pain TECHNIQUE: CT ABD/PEL WO CON RENAL/APPY. Oral contrast was not given. Coronal and sagittal reformats were performed. CT was performed with one or more of the following dose reduction techniques: Automated exposure control, adjustment of the mA and/or kV according to the patient's size, or use of the iterative reconstruction technique. Comparison: None. FINDINGS: The noncontrast nature this study limits evaluation of abdominal viscera. Mild atelectatic changes are seen in the lung bases. There is hepatic steatosis. Cholecystectomy changes are noted. Postop changes are seen in the stomach. The spleen, pancreas, and adrenal glands are within normal limits. No hydronephrosis. The urinary bladder is partially collapsed. IUD is seen in the uterus. No bowel obstruction is seen. Diverticulosis coli without CT evidence of acute diverticulitis. The appendix was not clearly visualized limiting evaluation. Correlate clinically. Midline incision is seen in the lower abdominal/pelvic wall with complex material which may may represent postoperative changes versus dehiscent midline incision. Correlate clinically. Visualized aorta is normal in caliber. No acute osseous findings. IMPRESSION: 1. No bowel obstruction is seen. Diverticulosis coli without CT evidence of acute diverticulitis. The appendix was not clearly visualized limiting evaluation. Correlate clinically. 2. Midline incision is seen in the lower abdominal/pelvic wall with complex material which may may represent postoperative changes versus dehiscent midline incision. Correlate clinically. ASSESSMENT: Chest pain unspecified POA Intractable nausea and abdominal pain POA Acute urinary tract infection POA Postoperative pain POA Recent laparoscopic converted to an open laparotomy small bowel resection and reconstruction of jejunojejunal anastomosis POA Elevated liver enzymes POA Elevated lipase POA Recent small enterocutaneous fistula POA Obesity POA History of gastric bypass POA PLAN: Patient to be admitted to the medical floor Keep the patient NPO Continue patient on Rocephin 2 gram IV for empiric coverage Continue on Famotidine 20 mg IV bid for GI prophylaxis We will replace electrolytes as needed per protocol Continue patient on TPN at 88 mL/hour We will prn medication for fever,pain,cough and nausea We will reconcile home meds once medlist available Continue to trend troponin q.6 hours x3 Drug urine screen reviewed We will request labs in am We will seek general surgery consultation Further orders to follow depending on above results Case discussed with attending physician and came up with above treatment and plan of care. ANAMARIA MAGANA MD Aug 26, 2024 08:43
[2024-08-26] MEDS ORDERED: PHARMACY COMMUNICATION MISC SCH (09:00)
[2024-08-26] MEDS: PoTASSium chloRIDE 20MEQ/100ML 100 ML IV ONE (09:40)
[2024-08-26 12:58] VITALS: BP 112/71; PULSE 81; RESP 17; TEMP 97.6
--- NOTE | 2024-08-26 15:36 | CONS ---
GENERAL SURGERY CONSULTATION NOTE Date/Time Patient Seen: 08/26/2024 12:00 p.m. Requesting Physician: ED physician Reason for Consultation: Postop patient of Dr. Han History of Present Illness: This is a 34-year-old female that had Rogelio-en-Y gastric bypass with Dr. Han about two months ago. The patient developed a leak and subsequently a fistula. She was sent to [facility] on TPN and NPO. She had been receiving wound care and her fistula has been decreasing in output. The patient was discharged to home about two days ago. She reports that she has been overly and has been drinking liquids. She has noticed a much higher output from her fistula. And she feels overall very weak. So she came to the emergency department. Past Medical History: Morbid obesity Past Surgical History: Rogelio-en-Y gastric bypass Family History: None Social History: None Current Medications Medications (Trade) Dose Ordered Sig/Ara Route Start Time Stop Time Status Last Admin Dose Admin Ceftriaxone Sodium 2 gm/ Sodium Chloride 100 ml @ 200 mls/hr Q24H IV 08/25/24 20:00 08/25/24 20:13 DC Ceftriaxone Sodium (Rocephin 2gm Inj) 2 gm Q24H IVPB 08/25/24 20:30 09/04/24 20:29 08/25/24 20:55 2 GM Famotidine (Pepcid 20mg Vial) 20 mg BID IV 08/25/24 21:00 09/24/24 20:59 08/26/24 09:39 20 MG Fat Emulsion Intravenous 250 ml @ 42 mls/hr Q24H IV 08/26/24 14:00 09/25/24 13:59 Lactated Ringer's 1,000 ml @ 100 mls/hr Q10H IV 08/25/24 20:00 09/24/24 19:59 08/26/24 07:27 100 MLS/HR Pharmacy Profile Note (Pharmacy Communication) 1 each AD MISC 08/26/24 09:00 08/25/24 20:23 DC Review of Systems: CONST: No fever, fatigue, or weight changes. EYES: No recent vision problems. ENT: No congestion, ear pain, or sore throat. C/V: No chest pain, palpitations, or edema. RESP: No cough, congestion, wheezing or shortness of breath. GI: No abdominal pain, nausea, vomiting, constipation, or diarrhea. : No incontinence or dysuria. SKIN: No rash. NEURO: No headache, focal numbness or weakness, dizziness, or seizures. PSYCH: No depression or anxiety. HEME: No abnormal bruising or bleeding. LYMPH: No swollen glands. Physical Examination: GENERAL: No acute distress. LUNGS: Respirations nonlabored HEART: Regular rate and rhythm ABD: Soft, nondistended, nontender, no rebound, no guarding. Midline wound with good granulation tissue there is a mucous drainage at the apex : Not examined EXT: No clubbing, cyanosis or edema. SKIN: No rashes or lesions noted. NEURO: Awake, alert, and oriented x3. No focal sensory or strength deficits noted. Vital Signs (last 8hr) Date Time Temp Pulse Resp B/P (MAP) Pulse Ox O2 Delivery O2 Flow Rate FiO2 08/26/24 15:29 99.0 80 18 118/87 99 Room Air* 0 21 08/26/24 12:58 97.5 81 17 112/71 99 Room Air 0.0 08/26/24 08:40 96 Room Air* 0 21 Laboratory: Hematology Labs: Test 08/26/24 02:00 Range/Units White Blood Count 6.4 4.8-10.8 K/uL Red Blood Count 3.69 L 4.00-5.50 MIL/uL Hemoglobin 10.6 L 12.0-16.0 g/dL Hematocrit 32.7 L 36-48 % Mean Corpuscular Volume 88.6 79-99 fL Mean Corpuscular Hemoglobin 28.7 27.0-33.0 pg Mean Corpuscular Hemoglobin Concent 32.4 32.0-36.0 g/dL Red Cell Distribution Width 13.6 11.0-15.5 % Platelet Count 245 130-400 K/uL Mean Platelet Volume 9.5 7.5-10.5 fL Immature Granulocyte % (Auto) 0.2 0-1 % Neutrophils (%) (Auto) 54.0 40.0-77.0 % Lymphocytes (%) (Auto) 35.1 21.0-51.0 % Monocytes (%) (Auto) 7.7 3.0-13.0 % Eosinophils (%) (Auto) 2.7 0.0-8.0 % Basophils (%) (Auto) 0.3 0.0-5.0 % Neutrophils # (Auto) 3.5 1.8-7.7 K/uL Lymphocytes # (Auto) 2.2 1.0-4.8 K/uL Monocytes # (Auto) 0.5 0.1-1.0 K/uL Eosinophils # (Auto) 0.17 0.00-0.70 K/uL Basophils # (Auto) 0.02 0.00-0.20 K/uL Absolute Immature Granulocyte (auto 0.01 0-1 K/uL Nucleated Red Blood Cells 0.0 0.0-0.19 % Chemistry Labs: Test 08/26/24 08:06 08/26/24 02:00 08/25/24 13:58 08/25/24 13:38 Range/Units Troponin I High Sensitivity 8 4-50 ng/L Sodium Level 138 136-145 mmol/L Potassium Level 3.4 L 3.5-5.1 mmol/L Chloride Level 103 101-111 mmol/L Carbon Dioxide Level 30 21-32 mmol/L Blood Urea Nitrogen 7 7-18 mg/dL Creatinine 0.7 0.5-1.0 mg/dL Glomerular Filtration Rate Calc 116 >90 mL/min Random Glucose 91 70-105 mg/dL Total Calcium 8.9 8.5-10.1 mg/dL Magnesium Level 1.90 1.80-2.40 mg/dL Total Bilirubin 0.3 # 0.2-1.0 mg/dL Aspartate Amino Transf (AST/SGOT) 59 H 10-37 U/L Alanine Aminotransferase (ALT/SGPT) 102 H 12-78 U/L Alkaline Phosphatase 87 50-136 U/L Total Protein 6.4 # 6.0-8.3 g/dL Albumin 2.9 #L 3.5-5.0 g/dL Serum Test, Qualitative NEGATIVE NEGATIVE Direct Bilirubin 0.2 0.0-0.3 mg/dL Total Creatine Kinase 34 21-232 U/L B-Type Natriuretic Peptide < 5 0-100 pg/mL Lipase 99 H 16-77 U/L Diagnostics / Radiology: PATIENT: KIKI HENDRIX MR#: [id number] : 1990 SEX: F AGE: 34 LOCATION: [facility] ORDER 25 STATUS: REG ER REPORT#: [id number] SERVICE 23 REASON: abdominal pain ORDERING PHYSICIAN: ELLYN MEANS MD PROCEDURE: ABD PELVWO - CT ABD/PEL WO CON RENAL/APPY CT ABD/PEL WO CON RENAL/APPY INDICATION: abdominal pain TECHNIQUE: CT ABD/PEL WO CON RENAL/APPY. Oral contrast was not given. Coronal and sagittal reformats were performed. CT was performed with one or more of the following dose reduction techniques: Automated exposure control, adjustment of the mA and/or kV according to the patient's size, or use of the iterative reconstruction technique. Comparison: None. FINDINGS: The noncontrast nature this study limits evaluation of abdominal viscera. Mild atelectatic changes are seen in the lung bases. There is hepatic steatosis. Cholecystectomy changes are noted. Postop changes are seen in the stomach. The spleen, pancreas, and adrenal glands are within normal limits. No hydronephrosis. The urinary bladder is partially collapsed. IUD is seen in the uterus. No bowel obstruction is seen. Diverticulosis coli without CT evidence of acute diverticulitis. The appendix was not clearly visualized limiting evaluation. Correlate clinically. Midline incision is seen in the lower abdominal/pelvic wall with complex material which may may represent postoperative changes versus dehiscent midline incision. Correlate clinically. Visualized aorta is normal in caliber. No acute osseous findings. IMPRESSION: 1. No bowel obstruction is seen. Diverticulosis coli without CT evidence of acute diverticulitis. The appendix was not clearly visualized limiting evaluation. Correlate clinically. 2. Midline incision is seen in the lower abdominal/pelvic wall with complex material which may may represent postoperative changes versus dehiscent midline incision. Correlate clinically. 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 Plan: Continue with TPN NPO. Dr. Han will see the patient tomorrow for further orders. JUAN KAUFMAN DO Aug 26, 2024 15:36
[2024-08-26] MEDS: FAT EMULSIONS 20% 250ML 250 ML IV SCH (15:49)
[2024-08-26] MEDS: CLINIMIX-E4.25%AA/D5+LYT2000ML 2,000 ML IV ONE (15:49)
--- NOTE | 2024-08-26 16:45 | NUR ---
RECEIVED PATIENT FROM EMERGENCY ROOM. PATIENT IS ALERT, ORIENTED IN PERSON, TIME AND PLACE. NO SIGNS OF RESPIRATORY DISTRESS NOTED. AT BED SIDE. BOWEL SOUNDS PRESENT IN ALL FOUR ABDOMINAL QUADRANTS, HYPOACTIVE. PATIENT HAS A WOUND ON HER MIDDLE LOWER ABDOMEN. DRESSING IS CLEAN AND SECURED WITH MEDIPORT TAPE. PATIENT STATED DR. KAUFMAN DID WOUND CARE AT THE EMERGENCY ROOM TODAY AND TO NOT REMOVE THE DRESSING UNTIL TOMORROW. HAS A PICC LINE ON LEFT UPPER ARM, 5FR DOUBLE LUMEN, PATENT BUT NO BLOOD RETURN. CHANGED DRESSING FOLLOWING HOSPITAL POLICIES UNDER STERILE TECHNIQUE. AMBULATES WITH ASSISTANCE. DORSALIS PEDIS PULSE PRESENT AND STRONG ON BOTH FEET. PLACED SCDS. DISCUSSED PLAN OF CARE AND PAIN MANAGEMENT.
[2024-08-26 19:10] VITALS: O2SAT 96
[2024-08-26 20:00] VITALS: BP 123/76; PULSE 76; RESP 16; TEMP 98.4
[2024-08-27] VITALS (9 sets, daily range): BP systolic 113–149; BP diastolic 66–84; PULSE 63–82; RESP 16–18; TEMP 97.3–98.6; O2SAT 96
[2024-08-27] MEDS: hydroMORPHone 0.5 MG SYG (0.5MG/0.5ML) IVP PRN (00:45)
[2024-08-27 05:02] LABS: HEMATOCRIT 35.7 % (36-48); MEAN CORPUSCULAR HEMOGLOBIN 28.2 pg (27.0-33.0); MEAN CORPUSCULAR HGB CONC 31.1 g/dL (32.0-36.0); MEAN CORPUSCULAR VOLUME 90.6 fL (79-99); RED BLOOD CELL COUNT(AUTO) 3.94 MIL/uL (4.00-5.50); RED CELL DISTRIBUTION WIDTH 13.2 % (11.0-15.5); WHITE BLOOD COUNT (AUTO) 4.9 K/uL (4.8-10.8)
[2024-08-27 05:34] LABS: ALBUMIN 2.9 g/dL (3.5-5.0); BILIRUBIN,TOTAL 0.3 mg/dL (0.2-1.0); CREATININE 0.7 mg/dL (0.5-1.0); POTASSIUM 3.6 mmol/L (3.5-5.1); TOTAL PROTEIN, SERUM 6.6 g/dL (6.0-8.3)
--- NOTE | 2024-08-27 10:24 | NUR ---
Nutritional Note: Chart, meds, and labs Reviewed. Pt s/p gastric bypass x 2 months ago and patient developed a leak and a fistula. Pt was on TPN and NPO. Current PPN provides 85gm pro and 680kcal without lipid emulsion and 1180kcal w/ lipid emulsion. Recommend: -Check HA1C to obtain the three-month average of blood sugar. -Check folate, iron, vit b12, and Vit D levels to rule out deficiencies. Per research low vitamin D may contribute to insulin resistance + vit. D deficiency may impair wound healing. Pt with severe wt loss in 2 months. -Check Lipid Panel pt was on TPN for >1 month. - Electrolyte replacements per protocol -Monitor PPN tolerance, wt, and labs -If No BM >3days consider bowel stimulant. - Please notify RD if additional nutrition concerns arise. SEE RD Nutritional Assessment for additional assessment information. Addendum: 08/27/24 at [address] Amended: Links added.
--- NOTE | 2024-08-27 11:17 | PN ---
This is a 34-year-old female status post gastric bypass postoperative fistula formation Interval history: This 34-year-old female seen in her room resting Patient on TPN Wet-to-dry wound care being performed by nursing Patient is no longer reporting discomfort at time of exam Patient on strict NPO orders Repeat imaging performed without oral contrast fistula not identified Patient is still feeling weak No other acute events reported Physical exam General: Awake alert and oriented Heart: Regular rate and rhythm} Lungs: [Clear to auscultation no distress Abdomen: Wound and not examined but with a dry dressing in place Assessment : This is a 34-year-old female status post gastric bypass with postoperative fistula formation Plan: Dr. Han to see patient today Patient to remain NPO on TPN Possible repeat imaging with contrast to identify fistula Surgical team to follow patient closely Continue with current medical management Surgical team to be updated with any further acute events Vitals/Labs Vital Signs Date Time Temp Pulse Resp B/P (MAP) Pulse Ox O2 Delivery O2 Flow Rate FiO2 08/27/24 08:18 98.1 82 18 113/66 97 Room Air 08/26/24 19:10 0 21 Laboratory Tests 08/27/24 04:56 Medications Current Medications Morphine Sulfate 4 mg ONCE ONCE IVP Last administered on 08/25/24at 14:32; Start 08/25/24 at 14:30; Stop 08/25/24 at 14:31; Status DC Ondansetron HCl 4 mg ONCE ONCE IVP Last administered on 08/25/24at 14:31; Start 08/25/24 at 14:30; Stop 08/25/24 at 14:31; Status DC Sodium Chloride 1,000 ml @ 0 mls/hr ONCE ONCE IV Last administered on 08/25/24at 14:31; Start 08/25/24 at 14:30; Stop 08/25/24 at 14:31; Status DC Hydromorphone HCl 0.5 mg ONCE ONCE IVP Last administered on 08/25/24at 15:52; Start 08/25/24 at 16:00; Stop 08/25/24 at 16:01; Status DC Hydromorphone HCl 0.5 mg Q4H PRN IVP Last administered on 08/26/24at 20:20; Start 08/25/24 at 18:30; Stop 08/27/24 at 00:43; Status DC Ondansetron HCl 4 mg Q6H PRN IV Last administered on 08/26/24at 20:26; Start 08/25/24 at 20:00; Stop 09/24/24 at 19:59 Ceftriaxone Sodium 2 gm/ Sodium Chloride 100 ml @ 200 mls/hr Q24H IV; Start 08/25/24 at 20:00; Stop 08/25/24 at 20:13; Status DC Famotidine 20 mg BID IV Last administered on 08/27/24at 09:25; Start 08/25/24 at 21:00; Stop 09/24/24 at 20:59 Pharmacy Profile Note 1 each AD MISC; Start 08/26/24 at 09:00; Stop 08/25/24 at 20:23; Status DC Lactated Ringer's 1,000 ml @ 100 mls/hr Q10H IV Last administered on 08/26/24at 07:27; Start 08/25/24 at 20:00; Stop 09/24/24 at 19:59 Ceftriaxone Sodium 2 gm Q24H IVPB Last administered on 08/26/24at 20:22; Start 08/25/24 at 20:30; Stop 09/04/24 at 20:29 Potassium Chloride 100 ml @ 50 mls/hr ONCE ONCE IV Last administered on 08/26/24at 09:40; Start 08/26/24 at 09:00; Stop 08/26/24 at 10:59; Status DC Amino Acids/ Electrolytes/ Dextrose 2,000 ml @ 83 mls/hr ONCE ONCE IV Last administered on 08/26/24at 15:49; Start 08/26/24 at 14:00; Stop 08/27/24 at 14:05 Fat Emulsion Intravenous 250 ml @ 42 mls/hr Q24H IV Last administered on 08/26/24at 15:49; Start 08/26/24 at 14:00; Stop 09/25/24 at 13:59 Hydromorphone HCl 0.5 mg Q4H PRN IVP Last administered on 08/27/24at 09:25; Start 08/27/24 at 01:00; Stop 08/30/24 at 00:59 MANUEL HERNÁNDEZ Jr. Aug 27, 2024 11:17
--- NOTE | 2024-08-27 14:26 | PN ---
[facility] PROGRESS NOTE Date of Service: Aug 27, 2024 Time of Service: 14:10 SUBJECTIVE: HPI This is a 34 year old with past medical history of morbid obesity and bowel obstruction and a surgical history of gastric bypass who presents to the ED for multiple complaints such as :abdominal pain,nausea, chills ,constipation and chest pain which all started 4 days ago.Patient states she had a gastric bypass surgery done on 06/2024 by and patient went home and was admitted on 06/23/2024 for bowel obstruction and on 06/27/2024 she underwent a laparoscopic converted to an open laparotomy small bowel resection and reconstruction of jejunojejunal anastomosis and 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 and patient was on IV antibiotic and TPN and surgical wound required abdominal dressing change TID and patient transitioned to LTAC at [facility].As per patient she was discharged home and being visited by home health nurse .As PERpatient her incision site is draining feces smell like and she started having nauseated but no vomiting.Patient reports she started having on and off chest pain and becoming weak.Today symptoms have been becoming worse midsternal chest pain is becoming persistent ,described as chest pressure which radiates to left arm associated with diaphoresis and shortness of breath while laying down.Patient states she called and her PCP who advised her to come to the ED for evaluation. Interval History 08/27/24:Lying in bed at the time of evaluation. Alert and oriented and in no obvious distress. Denies any chest pain at that this time. Patient has a post surgical incision wound on the abdomen with wet to dry dressing in place. Continues on TPN for adequate nutrition. Consult has been placed to General surgery, pending their recommendations. Will place an order to case management for possible transfer to a [facility] ([facility]) since patient is going to be on TPN fotr a while. REVIEW OF SYSTEMS CONSTITUTIONAL: Denies fevers or night sweats. No unintentional weight loss reported. NEUROLOGICAL: Denies headache, amaurosis fugax, motor weakness, sensory deficit, vertigo/spinning sensation, gait abnormalities, or tremors. ENT: No hearing loss, otalgia, otorrhea, rhinitis, rhinorrhea, hoarseness, or s ore throat. CARDIOVASCULAR: Denies orthopnea, paroxysmal nocturnal dyspnea, palpitations, life-threatening arrhythmias, claudication. PULMONARY: Denies cough, phlegm/sputum, hemoptysis, pleuritic chest pain. SLEEP: Denies morning headaches, daytime somnolence or napping. Denies difficulty falling asleep, staying asleep, waking from sleep. Denies knowledge of snoring. GASTROINTESTINAL: Denies any type of dysphagia to either liquids or solids. Denies pyrosis, early satiety,, diarrhea, constipation, or changes in stool co nsistency or caliber. Denies coffee-ground emesis, hematemesis, hematochezia, or melanotic stools. GENITOURINARY: Denies frequency, urgency, nocturia, hematuria or incontinence (Storage/Irritative symptoms.) Low urinary stream, splitting of the voiding stream, terminal dribbling. ENDOCRINOLOGIC: Denies polyuria, polydipsia, polyphagia or heat/cold intolerances. HEMATOLOGIC: Denies thrombophilia/previous clots, or coagulopathy/bleeding disorders. ONCOLOGIC: Denies personal history of malignancy. DERMATOLOGIC: Denies rashes or pruritus. PSYCHIATRIC: Denies any suicidal or homicidal ideation. Denies hallucinations. PHYSICAL EXAM GENERAL APPEARANCE: The patient is awake, alert, and oriented, in no acute cardiopulmonary distress. NEUROLOGICAL: Cranial nerves II-XII grossly intact. Motor is 5/5 in bilateral upper and lower extremities proximal to distal. No sensory deficits. HEENT: Face is symmetric. Pupils are equal and reactive. Extraocular movements are intact. NECK: Supple. No JVD. No thyromegaly. No submental, submandibular, pre-/postauricular, occipital or supraclavicular lymphadenopathy. CHEST: Normal chest expansion. No Telemetry. LUNGS: Absence of any rales, rhonchi or any wheezing. CARDIOVASCULAR: Regular. S1 and S2 normal. No appreciable rubs, murmurs or gallops. ABDOMEN: Soft and nondistended. There is no rebound, voluntary guarding, or rigidity. : Deferred. No Olson. EXTREMITIES: Non-edematous and not cyanotic. No clubbing. Good capillary refill. SKIN: Abdominal incision covered Vital Signs (last 8hr) Date Time Temp Pulse Resp B/P (MAP) Pulse Ox O2 Delivery O2 Flow Rate FiO2 08/27/24 11:46 98.1 74 16 120/77 95 Room Air 08/27/24 08:18 98.1 82 18 113/66 97 Room Air 08/27/24 08:00 96 Room Air* 0 21 LABS: Laboratory: Test 08/27/24 11:33 08/27/24 04:56 08/26/24 08:06 08/26/24 02:00 Range/Units Whole Blood Glucose 111 H 70-110 MG/DL White Blood Count 4.9 4.8-10.8 K/uL Red Blood Count 3.94 L 4.00-5.50 MIL/uL Hemoglobin 11.1 L 12.0-16.0 g/dL Hematocrit 35.7 L 36-48 % Mean Corpuscular Volume 90.6 79-99 fL Mean Corpuscular Hemoglobin 28.2 27.0-33.0 pg Mean Corpuscular Hemoglobin Concent 31.1 L 32.0-36.0 g/dL Red Cell Distribution Width 13.2 11.0-15.5 % Platelet Count 267 130-400 K/uL Mean Platelet Volume 9.1 7.5-10.5 fL Nucleated Red Blood Cells 0.0 0.0-0.19 % Sodium Level 137 136-145 mmol/L Potassium Level 3.6 3.5-5.1 mmol/L Chloride Level 101 101-111 mmol/L Carbon Dioxide Level 30 21-32 mmol/L Blood Urea Nitrogen 5 L 7-18 mg/dL Creatinine 0.7 0.5-1.0 mg/dL Glomerular Filtration Rate Calc 116 >90 mL/min Random Glucose 111 H 70-105 mg/dL Total Calcium 9.1 8.5-10.1 mg/dL Magnesium Level 2.00 1.80-2.40 mg/dL Total Bilirubin 0.3 0.2-1.0 mg/dL Aspartate Amino Transf (AST/SGOT) 55 H 10-37 U/L Alanine Aminotransferase (ALT/SGPT) 110 H 12-78 U/L Alkaline Phosphatase 88 50-136 U/L Total Protein 6.6 6.0-8.3 g/dL Albumin 2.9 L 3.5-5.0 g/dL Troponin I High Sensitivity 8 4-50 ng/L Immature Granulocyte % (Auto) 0.2 0-1 % Neutrophils (%) (Auto) 54.0 40.0-77.0 % Lymphocytes (%) (Auto) 35.1 21.0-51.0 % Monocytes (%) (Auto) 7.7 3.0-13.0 % Eosinophils (%) (Auto) 2.7 0.0-8.0 % Basophils (%) (Auto) 0.3 0.0-5.0 % Neutrophils # (Auto) 3.5 1.8-7.7 K/uL Lymphocytes # (Auto) 2.2 1.0-4.8 K/uL Monocytes # (Auto) 0.5 0.1-1.0 K/uL Eosinophils # (Auto) 0.17 0.00-0.70 K/uL Basophils # (Auto) 0.02 0.00-0.20 K/uL Absolute Immature Granulocyte (auto 0.01 0-1 K/uL Test 08/25/24 16:58 Range/Units Urine Color ORANGE H YELLOW Urine Appearance HAZY CLEAR Urine pH 6.0 5.0-8.0 Urine Specific [place] 1.028 1.001-1.031 Urine Protein 50 H NEGATIVE mg/dL Urine Glucose (UA) NEGATIVE NEGATIVE mg/dL Urine Ketones NEGATIVE NEGATIVE mg/dL Urine Occult Blood NEGATIVE NEGATIVE Urine Nitrate 2+ H NEGATIVE Urine Bilirubin 2 H NEGATIVE mg/dL Urine Urobilinogen 4.0 H 0.2-1.0 mg/dL Urine Leukocyte Esterase NEGATIVE NEGATIVE Jennifer/uL Urine RBC 2-5 H 0-1 /HPF Urine WBC 11-25 H 0-1 /HPF Urine Squamous Epithelial Cells MANY 0-2 /HPF Urine Bacteria FEW None Seen /HPF Urine HCG, Qualitative NEGATIVE NEGATIVE Urine Opiates Screen POSITIVE H NEGATIVE Urine Barbiturates Screen NEGATIVE NEGATIVE Urine Phencyclidine Screen NEGATIVE NEGATIVE Urine Amphetamines Screen NEGATIVE NEGATIVE Urine Benzodiazepines Screen NEGATIVE NEGATIVE Urine Cocaine Screen NEGATIVE NEGATIVE Urine Marijuana (THC) Screen NEGATIVE NEGATIVE Current Medications Medications (Trade) Dose Ordered Sig/Ara Route PRN Reason Start Time Stop Time Status Last Admin Dose Admin Ceftriaxone Sodium 2 gm/ Sodium Chloride 100 ml @ 200 mls/hr Q24H IV 08/25/24 20:00 08/25/24 20:13 DC Ceftriaxone Sodium (Rocephin 2gm Inj) 2 gm Q24H IVPB 08/25/24 20:30 09/04/24 20:29 08/26/24 20:22 2 GM Famotidine (Pepcid 20mg Vial) 20 mg BID IV 08/25/24 21:00 09/24/24 20:59 08/27/24 09:25 20 MG Fat Emulsion Intravenous 250 ml @ 42 mls/hr Q24H IV 08/26/24 14:00 09/25/24 13:59 08/26/24 15:49 42 MLS/HR Hydromorphone HCl (DiLAUDid 0.5MG INJ) 0.5 mg Q4H PRN IVP SEVERE PAIN (7-10) 08/27/24 01:00 08/30/24 00:59 08/27/24 13:37 0.5 MG Hydromorphone HCl (DiLAUDid 0.5MG INJ) 0.5 mg Q4H PRN IVP SEVERE PAIN (7-10) 08/25/24 18:30 08/27/24 00:43 DC 08/26/24 20:20 0.5 MG Lactated Ringer's 1,000 ml @ 100 mls/hr Q10H IV 08/25/24 20:00 09/24/24 19:59 08/26/24 07:27 100 MLS/HR Morphine Sulfate (morPHINE 2MG SYG) 2 mg Q4H4 PRN IVP SEVERE PAIN (7-10) 08/27/24 14:00 09/03/24 13:59 Ondansetron HCl (zoFRAN 4MG INJ) 4 mg Q6H PRN IV NAUSEA/VOMITING 08/25/24 20:00 09/24/24 19:59 08/26/24 20:26 4 MG Pharmacy Profile Note (Pharmacy Communication) 1 each AD MISC 08/26/24 09:00 08/25/24 20:23 DC DIAGNOSTICS / RADIOLOGY: PATIENT: KIKI HENDRIX MR#: [id number] : 1990 SEX: F AGE: 34 LOCATION: [facility] ORDER 142 STATUS: REG ER REPORT#: [id number] SERVICE 142 REASON: abdominal pain ORDERING PHYSICIAN: ELLYN MEANS MD PROCEDURE: ABD PELVWO - CT ABD/PEL WO CON RENAL/APPY CT ABD/PEL WO CON RENAL/APPY INDICATION: abdominal pain TECHNIQUE: CT ABD/PEL WO CON RENAL/APPY. Oral contrast was not given. Coronal and sagittal reformats were performed. CT was performed with one or more of the following dose reduction techniques: Automated exposure control, adjustment of the mA and/or kV according to the patient's size, or use of the iterative reconstruction technique. Comparison: None. FINDINGS: The noncontrast nature this study limits evaluation of abdominal viscera. Mild atelectatic changes are seen in the lung bases. There is hepatic steatosis. Cholecystectomy changes are noted. Postop changes are seen in the stomach. The spleen, pancreas, and adrenal glands are within normal limits. No hydronephrosis. The urinary bladder is partially collapsed. IUD is seen in the uterus. No bowel obstruction is seen. Diverticulosis coli without CT evidence of acute diverticulitis. The appendix was not clearly visualized limiting evaluation. Correlate clinically. Midline incision is seen in the lower abdominal/pelvic wall with complex material which may may represent postoperative changes versus dehiscent midline incision. Correlate clinically. Visualized aorta is normal in caliber. No acute osseous findings. IMPRESSION: 1. No bowel obstruction is seen. Diverticulosis coli without CT evidence of acute diverticulitis. The appendix was not clearly visualized limiting evaluation. Correlate clinically. 2. Midline incision is seen in the lower abdominal/pelvic wall with complex material which may may represent postoperative changes versus dehiscent midline incision. Correlate clinically. DICTATED BY: VANNA ROBLES MD DATE: 08/25/241702 ELECTRONICALLY SIGNED BY: VANNA ROBLES MD DATE: 08/25/241707 ASSESSMENT: Chest pain unspecified POA Intractable nausea and abdominal pain POA Acute urinary tract infection POA Postoperative pain POA Recent laparoscopic converted to an open laparotomy small bowel resection and reconstruction of jejunojejunal anastomosis POA Elevated liver enzymes POA Elevated lipase POA Recent small enterocutaneous fistula POA Obesity POA History of gastric bypass POA PLAN: *Consult placed to General surgery . Pending their recommendations. *Case management consult placed. *Keep the patient NPO *Continue patient on TPN at 88 mL/hour *Continue patient on Rocephin 2 gram IV for empiric coverage *Continue on Famotidine 20 mg IV bid for GI prophylaxis *We will replace electrolytes as needed per protocol *We will prn medication for fever,pain,cough and nausea *We will reconcile home meds once medlist available *We will request labs in am *Further orders to follow depending on above results Case discussed with attending physician and came up with above treatment and plan of care. ATTESTATION BY PHYSICIAN I have seen and examined the patient. I reviewed the documentation, medical decision making, and treatment plan as noted by the mid-level provider above. I agree with the findings and plan of care. Robbie Blankenship MD OBI,NEGRITO Gandara MD Aug 27, 2024 14:26
[2024-08-27] MEDS: morPHINE 2 MG SYG IVP PRN (16:27)
[2024-08-27] MEDS: CLINIMIX-E4.25%AA/D5+LYT2000ML 2,000 ML IV ONE (16:43)
--- NOTE | 2024-08-27 17:09 | NUR ---
Discharge Planning: Referral sent to [facility]. Pending insurance authorization.
[2024-08-27] MEDS: octREOtide aceTATe 100 MCG/ML AMP IV SCH (20:11)
[2024-08-28 04:00] VITALS: BP 144/80; PULSE 72; RESP 17; TEMP 97.4
[2024-08-28 07:02] LABS: BASOPHILS # (AUTO) 0.02 K/uL (0.00-0.20); BASOPHILS % (AUTO) 0.4 % (0.0-5.0); EOSINOPHILS % (AUTO) 3.7 % (0.0-8.0); HEMATOCRIT 35.7 % (36-48); IMMATURE GRANULOCYTE ABSOLUTE 0.02 K/uL (0-1); LYMPHOCYTES # (AUTO) 1.3 K/uL (1.0-4.8); LYMPHOCYTES % (AUTO) 24.1 % (21.0-51.0); MEAN CORPUSCULAR HGB CONC 31.7 g/dL (32.0-36.0); MEAN CORPUSCULAR VOLUME 88.6 fL (79-99); MONOCYTES # (AUTO) 0.4 K/uL (0.1-1.0); MONOCYTES % (AUTO) 7.6 % (3.0-13.0); NEUTROPHILS # (AUTO) 3.4 K/uL (1.8-7.7); NEUTROPHILS % (AUTO) 63.8 % (40.0-77.0); PLATELET COUNT (AUTO) 295 K/uL (130-400); RED BLOOD CELL COUNT(AUTO) 4.03 MIL/uL (4.00-5.50); RED CELL DISTRIBUTION WIDTH 13.3 % (11.0-15.5); WHITE BLOOD COUNT (AUTO) 5.4 K/uL (4.8-10.8)
[2024-08-28 07:07] LABS: ALBUMIN 3.1 g/dL (3.5-5.0); BILIRUBIN,TOTAL 0.3 mg/dL (0.2-1.0); CREATININE 0.7 mg/dL (0.5-1.0); POTASSIUM 4.1 mmol/L (3.5-5.1)
[2024-08-28 08:00] VITALS: BP 139/86; PULSE 81; RESP 18; TEMP 98.1; O2SAT 98
--- NOTE | 2024-08-28 08:59 | PN ---
[facility] PROGRESS NOTE Date of Service: Aug 28, 2024 Time of Service: 08:58 SUBJECTIVE: HPI This is a 34 year old with past medical history of morbid obesity and bowel obstruction and a surgical history of gastric bypass who presents to the ED for multiple complaints such as :abdominal pain,nausea, chills ,constipation and chest pain which all started 4 days ago.Patient states she had a gastric bypass surgery done on 06/2024 by and patient went home and was admitted on 06/23/2024 for bowel obstruction and on 06/27/2024 she underwent a laparoscopic converted to an open laparotomy small bowel resection and reconstruction of jejunojejunal anastomosis and 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 and patient was on IV antibiotic and TPN and surgical wound required abdominal dressing change TID and patient transitioned to LTAC at [facility].As per patient she was discharged home and being visited by home health nurse .As PERpatient her incision site is draining feces smell like and she started having nauseated but no vomiting.Patient reports she started having on and off chest pain and becoming weak.Today symptoms have been becoming worse midsternal chest pain is becoming persistent ,described as chest pressure which radiates to left arm associated with diaphoresis and shortness of breath while laying down.Patient states she called and her PCP who advised her to come to the ED for evaluation. Interval History 08/27/24:Lying in bed at the time of evaluation. Alert and oriented and in no obvious distress. Denies any chest pain at that this time. Patient has a post surgical incision wound on the abdomen with wet to dry dressing in place. Continues on TPN for adequate nutrition. Consult has been placed to General surgery, pending their recommendations. Will place an order to case management for possible transfer to a [facility] acute care facility ([facility]) since patient is going to be on TPN for a while. 08/28/24: Lying in bed at the time of evaluation. Alert and oriented and in no obvious distress. Denies any chest pain at that this time. Patient has a post surgical incision wound on the abdomen with wet to dry dressing in place. Continues on TPN for adequate nutrition. Patient complains that she has not had a bowel movement in 5 days. Ordered Lactulose 30ml for constipation. Patient is scheduled for a fistulogram and a CT scan today 08/28/24. Continues with pain which she rates as a 9/10. Currently on Dilaudid 0.5mg and Morphine 2mg for pain. Added Ketorolac 30mg IV q8h for pain. REVIEW OF SYSTEMS CONSTITUTIONAL: Denies fevers or night sweats. No unintentional weight loss reported. NEUROLOGICAL: Denies headache, amaurosis fugax, motor weakness, sensory deficit, vertigo/spinning sensation, gait abnormalities, or tremors. ENT: No hearing loss, otalgia, otorrhea, rhinitis, rhinorrhea, hoarseness, or sore throat. CARDIOVASCULAR: Denies orthopnea, paroxysmal nocturnal dyspnea, palpitations, life-threatening arrhythmias, claudication. PULMONARY: Denies cough, phlegm/sputum, hemoptysis, pleuritic chest pain. SLEEP: Denies morning headaches, daytime somnolence or napping. Denies difficulty falling asleep, staying asleep, waking from sleep. Denies knowledge of snoring. GASTROINTESTINAL: Denies any type of dysphagia to either liquids or solids. Denies pyrosis, early satiety,, diarrhea, constipation, or changes in stool consistency or caliber. Denies coffee-ground emesis, hematemesis, hematochezia, or melanotic stools. GENITOURINARY: Denies frequency, urgency, nocturia, hematuria or incontinence (Storage/Irritative symptoms.) Low urinary stream, splitting of the voiding stream, terminal dribbling. ENDOCRINOLOGIC: Denies polyuria, polydipsia, polyphagia or heat/cold intolerances. HEMATOLOGIC: Denies thrombophilia/previous clots, or coagulopathy/bleeding disorders. ONCOLOGIC: Denies personal history of malignancy. DERMATOLOGIC: Denies rashes or pruritus. PSYCHIATRIC: Denies any suicidal or homicidal ideation. Denies hallucinations. PHYSICAL EXAM GENERAL APPEARANCE: The patient is awake, alert, and oriented, in no acute cardiopulmonary distress. NEUROLOGICAL: Cranial nerves II-XII grossly intact. Motor is 5/5 in bilateral upper and lower extremities proximal to distal. No sensory deficits. HEENT: Face is symmetric. Pupils are equal and reactive. Extraocular movements are intact. NECK: Supple. No JVD. No thyromegaly. No submental, submandibular, pre- /postauricular, occipital or supraclavicular lymphadenopathy. CHEST: Normal chest expansion. No Telemetry. LUNGS: Absence of any rales, rhonchi or any wheezing. CARDIOVASCULAR: Regular. S1 and S2 normal. No appreciable rubs, murmurs or gallops. ABDOMEN: Soft and nondistended. There is no rebound, voluntary guarding, or rigidity. : Deferred. No Olson. EXTREMITIES: Non-edematous and not cyanotic. No clubbing. Good capillary refill. SKIN: Abdominal incision covered Vital Signs (last 8hr) Date Time Temp Pulse Resp B/P (MAP) Pulse Ox O2 Delivery O2 Flow Rate FiO2 08/28/24 04:00 97.3 72 17 144/80 97 Room Air LABS: Laboratory: Test 08/28/24 06:30 08/28/24 05:46 08/27/24 04:56 Range/Units White Blood Count 5.4 4.8-10.8 K/uL Red Blood Count 4.03 4.00-5.50 MIL/uL Hemoglobin 11.3 L 12.0-16.0 g/dL Hematocrit 35.7 L 36-48 % Mean Corpuscular Volume 88.6 79-99 fL Mean Corpuscular Hemoglobin 28.0 27.0-33.0 pg Mean Corpuscular Hemoglobin Concent 31.7 L 32.0-36.0 g/dL Red Cell Distribution Width 13.3 11.0-15.5 % Platelet Count 295 130-400 K/uL Mean Platelet Volume 9.1 7.5-10.5 fL Immature Granulocyte % (Auto) 0.4 0-1 % Neutrophils (%) (Auto) 63.8 40.0-77.0 % Lymphocytes (%) (Auto) 24.1 21.0-51.0 % Monocytes (%) (Auto) 7.6 3.0-13.0 % Eosinophils (%) (Auto) 3.7 0.0-8.0 % Basophils (%) (Auto) 0.4 0.0-5.0 % Neutrophils # (Auto) 3.4 1.8-7.7 K/uL Lymphocytes # (Auto) 1.3 1.0-4.8 K/uL Monocytes # (Auto) 0.4 0.1-1.0 K/uL Eosinophils # (Auto) 0.20 0.00-0.70 K/uL Basophils # (Auto) 0.02 0.00-0.20 K/uL Absolute Immature Granulocyte (auto 0.02 0-1 K/uL Nucleated Red Blood Cells 0.0 0.0-0.19 % Sodium Level 142 136-145 mmol/L Potassium Level 4.1 3.5-5.1 mmol/L Chloride Level 106 101-111 mmol/L Carbon Dioxide Level 30 21-32 mmol/L Blood Urea Nitrogen 8 7-18 mg/dL Creatinine 0.7 0.5-1.0 mg/dL Glomerular Filtration Rate Calc 116 >90 mL/min Random Glucose 117 H 70-105 mg/dL Total Calcium 9.2 8.5-10.1 mg/dL Total Bilirubin 0.3 0.2-1.0 mg/dL Aspartate Amino Transf (AST/SGOT) 72 H 10-37 U/L Alanine Aminotransferase (ALT/SGPT) 132 H 12-78 U/L Alkaline Phosphatase 93 50-136 U/L Total Protein 7.0 6.0-8.3 g/dL Albumin 3.1 L 3.5-5.0 g/dL Whole Blood Glucose 129 H 70-110 MG/DL Magnesium Level 2.00 1.80-2.40 mg/dL Current Medications Medications (Trade) Dose Ordered Sig/Ara Route PRN Reason Start Time Stop Time Status Last Admin Dose Admin Ceftriaxone Sodium 2 gm/ Sodium Chloride 100 ml @ 200 mls/hr Q24H IV 08/25/24 20:00 08/25/24 20:13 DC Ceftriaxone Sodium (Rocephin 2gm Inj) 2 gm Q24H IVPB 08/25/24 20:30 09/04/24 20:29 08/27/24 20:11 2 GM Famotidine (Pepcid 20mg Vial) 20 mg BID IV 08/25/24 21:00 09/24/24 20:59 08/27/24 20:10 20 MG Fat Emulsion Intravenous 250 ml @ 42 mls/hr Q24H IV 08/26/24 14:00 09/25/24 13:59 08/27/24 16:43 42 MLS/HR Hydromorphone HCl (DiLAUDid 0.5MG INJ) 0.5 mg Q4H PRN IVP SEVERE PAIN (7-10) 08/27/24 01:00 08/30/24 00:59 08/28/24 05:08 0.5 MG Hydromorphone HCl (DiLAUDid 0.5MG INJ) 0.5 mg Q4H PRN IVP SEVERE PAIN (7-10) 08/25/24 18:30 08/27/24 00:43 DC 08/26/24 20:20 0.5 MG Lactated Ringer's 1,000 ml @ 100 mls/hr Q10H IV 08/25/24 20:00 09/24/24 19:59 08/26/24 07:27 100 MLS/HR Morphine Sulfate (morPHINE 2MG SYG) 2 mg Q4H4 PRN IVP SEVERE PAIN (7-10) 08/27/24 14:00 09/03/24 13:59 08/27/24 16:27 2 MG Octreotide Acetate (SandoSTATIN) 100 mcg BID IV 08/27/24 21:00 09/26/24 20:59 08/27/24 20:11 100 MCG Ondansetron HCl (zoFRAN 4MG INJ) 4 mg Q6H PRN IV NAUSEA/VOMITING 08/25/24 20:00 09/24/24 19:59 08/26/24 20:26 4 MG Pharmacy Profile Note (Pharmacy Communication) 1 each AD MISC 08/26/24 09:00 08/25/24 20:23 DC DIAGNOSTICS / RADIOLOGY: PATIENT: KIKI HENDRIX MR#: [id number] : 1990 SEX: F AGE: 34 LOCATION: [facility] ORDER [id number] STATUS: REG REPORT#: [id number] SERVICE 1424 REASON: abdominal pain ORDERING PHYSICIAN: ELLYN MEANS MD PROCEDURE: ABD PELVWO - CT ABD/PEL WO CON RENAL/APPY CT ABD/PEL WO CON RENAL/APPY INDICATION: abdominal pain TECHNIQUE: CT ABD/PEL WO CON RENAL/APPY. Oral contrast was not given. Coronal and sagittal reformats were performed. CT was performed with one or more of the following dose reduction techniques: Automated exposure control, adjustment of the mA and/or kV according to the patient's size, or use of the iterative reconstruction technique. Comparison: None. FINDINGS: The noncontrast nature this study limits evaluation of abdominal viscera. Mild atelectatic changes are seen in the lung bases. There is hepatic steatosis. Cholecystectomy changes are noted. Postop changes are seen in the stomach. The spleen, pancreas, and adrenal glands are within normal limits. No hydronephrosis. The urinary bladder is partially collapsed. IUD is seen in the uterus. No bowel obstruction is seen. Diverticulosis coli without CT evidence of acute diverticulitis. The appendix was not clearly visualized limiting evaluation. Correlate clinically. Midline incision is seen in the lower abdominal/pelvic wall with complex material which may may represent postoperative changes versus dehiscent midline incision. Correlate clinically. Visualized aorta is normal in caliber. No acute osseous findings. IMPRESSION: 1. No bowel obstruction is seen. Diverticulosis coli without CT evidence of acute diverticulitis. The appendix was not clearly visualized limiting evaluation. Correlate clinically. 2. Midline incision is seen in the lower abdominal/pelvic wall with complex material which may may represent postoperative changes versus dehiscent midline incision. Correlate clinically. DICTATED BY: VANNA ROBLES MD DATE: 08/25/241702 ELECTRONICALLY SIGNED BY: VANNA ROBLES MD DATE: 08/25/241707 ASSESSMENT: Chest pain unspecified POA Intractable nausea and abdominal pain POA Acute urinary tract infection POA Postoperative pain POA Recent laparoscopic converted to an open laparotomy small bowel resection and reconstruction of jejunojejunal anastomosis POA Elevated liver enzymes POA Elevated lipase POA Recent small enterocutaneous fistula POA Obesity POA History of gastric bypass POA PLAN: *Consult placed to General surgery . Pending their recommendations. *Case management consult placed. *Continue on NPO *Continue patient on TPN at 88 mL/hour *Continue patient on Rocephin 2 gram IV for empiric coverage *Continue on Famotidine 20 mg IV bid for GI prophylaxis *We will replace electrolytes as needed per protocol *We will prn medication for fever,pain,cough and nausea *We will reconcile home meds once medlist available *We will request labs in am *Further orders to follow depending on above results Case discussed with attending physician and came up with above treatment and plan of care. ATTESTATION BY PHYSICIAN I have seen and examined the patient. I reviewed the documentation, medical decision making, and treatment plan as noted by the mid-level provider above. I agree with the findings and plan of care. Robbie Blankenship MD OBI,NEGRITO Gandara MD Aug 28, 2024 08:59
--- NOTE | 2024-08-28 09:02 | NUR ---
advised Dr. Reddy in reference to a fistulagram, CT abd/pelvis, post gastric bypass. Dr. Reddy advised this case to be performed at the radiology department with nurse Lamas. Advised 3rd floor, nurse Douglas. Nurse Douglas will advise the attending nurse, Neeraj.
[2024-08-28] MEDS: LACTULOSE 20 GM/30 ML UDCUP PO ONE (10:00)
[2024-08-28] MEDS ORDERED: IOHEXOL-350 50ML VIAL IV ONE (10:25)
--- NOTE | 2024-08-28 10:28 | PN ---
This is a 34-year-old female status post gastric bypass postoperative fistula formation Interval history: This 34-year-old female seen in her room resting patient continues with TPN and NPO status Patient is seen by Dr. Han yesterday and plan for today is fistulogram followed by CT with oral contrast as per Radiology recommendations No significant pain reported today In no acute events reported overnight Physical exam General: Awake alert and oriented Heart: Regular rate and rhythm} Lungs: [Clear to auscultation no distress Abdomen: [Soft, wound bandaged and packed Assessment : This is a 34-year-old female status post gastric bypass with postoperative fistula formation Plan: No surgical intervention planned We will await imaging findings Patient to remain NPO Patient encouraged to ambulate and work with physical therapy Dr. Han to be updated on patient's status and surgical team to follow patient closely Vitals/Labs Vital Signs Date Time Temp Pulse Resp B/P (MAP) Pulse Ox O2 Delivery O2 Flow Rate FiO2 08/28/24 08:00 98.1 81 18 139/86 98 Room Air 21 08/27/24 19:20 0 Laboratory Tests 08/28/24 06:30 Medications Current Medications Morphine Sulfate 4 mg ONCE ONCE IVP Last administered on 08/25/24at 14:32; Start 08/25/24 at 14:30; Stop 08/25/24 at 14:31; Status DC Ondansetron HCl 4 mg ONCE ONCE IVP Last administered on 08/25/24at 14:31; Start 08/25/24 at 14:30; Stop 08/25/24 at 14:31; Status DC Sodium Chloride 1,000 ml @ 0 mls/hr ONCE ONCE IV Last administered on 08/25/24at 14:31; Start 08/25/24 at 14:30; Stop 08/25/24 at 14:31; Status DC Hydromorphone HCl 0.5 mg ONCE ONCE IVP Last administered on 08/25/24at 15:52; Start 08/25/24 at 16:00; Stop 08/25/24 at 16:01; Status DC Hydromorphone HCl 0.5 mg Q4H PRN IVP Last administered on 08/26/24at 20:20; Start 08/25/24 at 18:30; Stop 08/27/24 at 00:43; Status DC Ondansetron HCl 4 mg Q6H PRN IV Last administered on 08/28/24at 09:11; Start 08/25/24 at 20:00; Stop 09/24/24 at 19:59 Ceftriaxone Sodium 2 gm/ Sodium Chloride 100 ml @ 200 mls/hr Q24H IV; Start 08/25/24 at 20:00; Stop 08/25/24 at 20:13; Status DC Famotidine 20 mg BID IV Last administered on 08/28/24at 09:04; Start 08/25/24 at 21:00; Stop 09/24/24 at 20:59 Pharmacy Profile Note 1 each [place] [facility]; Start 08/26/24 at 09:00; Stop 08/25/24 at 20:23; Status DC Lactated Ringer's 1,000 ml @ 100 mls/hr Q10H IV Last administered on 08/26/24at 07:27; Start 08/25/24 at 20:00; Stop 09/24/24 at 19:59 Ceftriaxone Sodium 2 gm Q24H IVPB Last administered on 08/27/24at 20:11; Start 08/25/24 at 20:30; Stop 09/04/24 at 20:29 Potassium Chloride 100 ml @ 50 mls/hr ONCE ONCE IV Last administered on 08/26/24at 09:40; Start 08/26/24 at 09:00; Stop 08/26/24 at 10:59; Status DC Amino Acids/ Electrolytes/ Dextrose 2,000 ml @ 83 mls/hr ONCE ONCE IV Last administered on 08/26/24at 15:49; Start 08/26/24 at 14:00; Stop 08/27/24 at 14:05; Status DC Fat Emulsion Intravenous 250 ml @ 42 mls/hr Q24H IV Last administered on 08/27/24at 16:43; Start 08/26/24 at 14:00; Stop 09/25/24 at 13:59 Hydromorphone HCl 0.5 mg Q4H PRN IVP Last administered on 08/28/24at 09:48; Start 08/27/24 at 01:00; Stop 08/28/24 at 10:07; Status DC Morphine Sulfate 2 mg Q4H4 PRN IVP Last administered on 08/27/24at 16:27; Start 08/27/24 at 14:00; Stop 08/28/24 at 10:07; Status DC Amino Acids/ Electrolytes/ Dextrose 2,000 ml @ 83 mls/hr ONCE ONCE IV Last administered on 08/27/24at 16:43; Start 08/27/24 at 16:00; Stop 08/28/24 at 16:05 Octreotide Acetate 100 mcg BID IV Last administered on 08/28/24at 09:03; Start 08/27/24 at 21:00; Stop 09/26/24 at 20:59 Ketorolac Tromethamine 30 mg Q6H PRN IVP; Start 08/28/24 at 10:00; Stop 09/02/24 at 09:59 Lactulose 20 gm ONCE ONCE PO; Start 08/28/24 at 10:00; Stop 08/28/24 at 10:03; Status DC Iohexol 50 ml STK-MED ONCE IV; Start 08/28/24 at 10:25; Stop 08/28/24 at 10:25; Status DC MANUEL HERNÁNDEZ Jr. Aug 28, 2024 10:28
[2024-08-28 12:00] VITALS: BP 141/76; PULSE 72; RESP 18; TEMP 98.1
--- NOTE | 2024-08-28 12:34 | HMCIMG ---
XR ABSCESS FISTULA STUDY REASON: POST GASTRIC BYPASS WITH ABD WOUND AND FISTULA COMPARISON: None TECHNIQUE: Exam was performed with fluoroscopic observation. Procedure was discussed with the patient. Anterior abdominal wall fistula was identified and cleaned with Betadine. Catheter was entered with a 5 Slovenian soft red rubber catheter. This passed easily into a small bowel loop, this was confirmed with contrast injection. Patient was then sent for postprocedure CT as per physician's request. IMPRESSION: 1. Documentation of a fistula into the small bowel from the anterior abdominal wall lesion, as described above. 2. Fluoroscopy time 0.3 minutes.
[2024-08-28] MEDS: ketOROlac 30MG VIAL (30MG/ML) IVP PRN (12:47)
--- NOTE | 2024-08-28 12:47 | HMCIMG ---
CT ABDOMEN/PELVIS W/O CONTRAST REASON: post IR fistulogram COMPARISON: 08/25/2024. TECHNIQUE: Images were obtained following injection of contrast into small bowel loops of the the midline fistula, using a red rubber catheter. FINDINGS: Lung bases are clear. There are no focal liver lesions. There are normal-appearing kidneys.. Spleen and pancreas appear unremarkable. There has been a previous cholecystectomy. There is contrast outlining the fistulous tract and extending into a mid small bowel loop. This involves the loop immediately beneath the open anterior abdominal wall incision. Contrast passes into several additional mid jejunal small bowel loops. There are no dilated loops to suggest obstruction and there is no leak. Small bowel loops appear otherwise unremarkable. The colon also appears normal. The appendix was not well seen. There is no evidence of free fluid or intraperitoneal air. There are no focal fluid collections. Aorta and retroperitoneum appear normal as do pelvic soft tissue structures. The anterior abdominal wall is intact. Osseous structures appear unremarkable. IMPRESSION: 1. Small fistulous tract outlined with contrast injection as described, this extends into a mid small bowel loop which is immediately subjacent to the open wound. 2. No evidence of leak or obstruction, the exam is otherwise unremarkable. CT was performed with one or more following dose reduction techniques: automated exposure control, adjustment of the mA and kv according to patient's size, or use of a iterative reconstruction technique.
[2024-08-28 16:00] VITALS: BP 128/83; PULSE 72; RESP 18; TEMP 98
[2024-08-28] MEDS: hydroMORPHone 0.5 MG SYG (0.5MG/0.5ML) IVP PRN (17:56)
[2024-08-28] MEDS: CLINIMIX-E4.25%AA/D5+LYT2000ML 2,000 ML IV ONE (18:49)
[2024-08-28 20:00] VITALS: BP 146/82; PULSE 71; RESP 17; TEMP 97.8; O2SAT 97
[2024-08-29] VITALS (7 sets, daily range): BP systolic 122–149; BP diastolic 75–86; PULSE 60–82; RESP 16–18; TEMP 97.6–98.2; O2SAT 97
--- NOTE | 2024-08-29 08:47 | PN ---
[facility] PROGRESS NOTE Date of Service: Aug 29, 2024 Time of Service: 08:47 SUBJECTIVE: HPI This is a 34 year old with past medical history of morbid obesity and bowel obstruction and a surgical history of gastric bypass who presents to the ED for multiple complaints such as :abdominal pain,nausea, chills ,constipation and chest pain which all started 4 days ago.Patient states she had a gastric bypass surgery done on 06/2024 by and patient went home and was admitted on 06/23/2024 for bowel obstruction and on 06/27/2024 she underwent a laparoscopic converted to an open laparotomy small bowel resection and reconstruction of jejunojejunal anastomosis and 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 and patient was on IV antibiotic and TPN and surgical wound required abdominal dressing change TID and patient transitioned to LT[facility] at [facility].As per patient she was discharged home and being visited by home health nurse .As PERpatient her incision site is draining feces smell like and she started having nauseated but no vomiting.Patient reports she started having on and off chest pain and becoming weak.Today symptoms have been becoming worse midsternal chest pain is becoming persistent ,described as chest pressure which radiates to left arm associated with diaphoresis and shortness of breath while laying down.Patient states she called and her PCP who advised her to come to the ED for evaluation. Interval History 08/27/24:Lying in bed at the time of evaluation. Alert and oriented and in no obvious distress. Denies any chest pain at that this time. Patient has a post surgical incision wound on the abdomen with wet to dry dressing in place. Continues on TPN for adequate nutrition. Consult has been placed to General surgery, pending their recommendations. Will place an order to case management for possible transfer to a snf acute care facility ([facility]) since patient is going to be on TPN for a while. 08/28/24: Lying in bed at the time of evaluation. Alert and oriented and in no obvious distress. Denies any chest pain at that this time. Patient has a post surgical incision wound on the abdomen with wet to dry dressing in place. Continues on TPN for adequate nutrition. Patient complains that she has not had a bowel movement in 5 days. Ordered Lactulose 30ml for constipation. Patient is scheduled for a fistulogram and a CT scan today 08/28/24. Continues with pain which she rates as a 9/10. Currently on Dilaudid 0.5mg and Morphine 2mg for pain. Added Ketorolac 30mg IV q8h for pain. 08/29/24: Lying in bed at the time of evaluation. Alert and oriented and in no obvious distress. Denies any chest pain at that this time. Patient has a post surgical incision wound on the abdomen with wet to dry dressing in place. Continues on TPN for adequate nutrition. Patient had a fistulogram which showed a fistula into the small bowel from an anterior wall lesion and a CT abdomen/pelvis showed a small fistulous tract that extends into a small mid bowel loop which is subjacent to the open wound. No evidence of leak or obstruction seen. Patient will be kept overnight for observation Home health arrangements for potential TPN to be set up by case management. REVIEW OF SYSTEMS CONSTITUTIONAL: Denies fevers or night sweats. No unintentional weight loss reported. NEUROLOGICAL: Denies headache, amaurosis fugax, motor weakness, sensory deficit, vertigo/spinning sensation, gait abnormalities, or tremors. ENT: No hearing loss, otalgia, otorrhea, rhinitis, rhinorrhea, hoarseness, or sore throat. CARDIOVASCULAR: Denies orthopnea, paroxysmal nocturnal dyspnea, palpitations, life-threatening arrhythmias, claudication. PULMONARY: Denies cough, phlegm/sputum, hemoptysis, pleuritic chest pain. SLEEP: Denies morning headaches, daytime somnolence or napping. Denies difficulty falling asleep, staying asleep, waking from sleep. Denies knowledge of snoring. GASTROINTESTINAL: Denies any type of dysphagia to either liquids or solids. Denies pyrosis, early satiety,, diarrhea, constipation, or changes in stool consistency or caliber. Denies coffee-ground emesis, hematemesis, hematochezia, or melanotic stools. GENITOURINARY: Denies frequency, urgency, nocturia, hematuria or incontinence (Storage/Irritative symptoms.) Low urinary stream, splitting of the voiding stream, terminal dribbling. ENDOCRINOLOGIC: Denies polyuria, polydipsia, polyphagia or heat/cold intolerances. HEMATOLOGIC: Denies thrombophilia/previous clots, or coagulopathy/bleeding disorders. ONCOLOGIC: Denies personal history of malignancy. DERMATOLOGIC: Denies rashes or pruritus. PSYCHIATRIC: Denies any suicidal or homicidal ideation. Denies hallucinations. PHYSICAL EXAM GENERAL APPEARANCE: The patient is awake, alert, and oriented, in no acute cardiopulmonary distress. NEUROLOGICAL: Cranial nerves II-XII grossly intact. Motor is 5/5 in bilateral upper and lower extremities proximal to distal. No sensory deficits. HEENT: Face is symmetric. Pupils are equal and reactive. Extraocular movements are intact. NECK: Supple. No JVD. No thyromegaly. No submental, submandibular, pre- /postauricular, occipital or supraclavicular lymphadenopathy. CHEST: Normal chest expansion. No Telemetry. LUNGS: Absence of any rales, rhonchi or any wheezing. CARDIOVASCULAR: Regular. S1 and S2 normal. No appreciable rubs, murmurs or gallops. ABDOMEN: Soft and nondistended. There is no rebound, voluntary guarding, or rigidity. : Deferred. No Olson. EXTREMITIES: Non-edematous and not cyanotic. No clubbing. Good capillary refill. SKIN: Abdominal incision covered Vital Signs (last 8hr) Date Time Temp Pulse Resp B/P (MAP) Pulse Ox O2 Delivery O2 Flow Rate FiO2 08/29/24 04:00 97.9 82 17 140/86 97 Room Air LABS: Laboratory: Test 08/29/24 05:41 08/28/24 06:30 Range/Units Whole Blood Glucose 120 H 70-110 MG/DL White Blood Count 5.4 4.8-10.8 K/uL Red Blood Count 4.03 4.00-5.50 MIL/uL Hemoglobin 11.3 L 12.0-16.0 g/dL Hematocrit 35.7 L 36-48 % Mean Corpuscular Volume 88.6 79-99 fL Mean Corpuscular Hemoglobin 28.0 27.0-33.0 pg Mean Corpuscular Hemoglobin Concent 31.7 L 32.0-36.0 g/dL Red Cell Distribution Width 13.3 11.0-15.5 % Platelet Count 295 130-400 K/uL Mean Platelet Volume 9.1 7.5-10.5 fL Immature Granulocyte % (Auto) 0.4 0-1 % Neutrophils (%) (Auto) 63.8 40.0-77.0 % Lymphocytes (%) (Auto) 24.1 21.0-51.0 % Monocytes (%) (Auto) 7.6 3.0-13.0 % Eosinophils (%) (Auto) 3.7 0.0-8.0 % Basophils (%) (Auto) 0.4 0.0-5.0 % Neutrophils # (Auto) 3.4 1.8-7.7 K/uL Lymphocytes # (Auto) 1.3 1.0-4.8 K/uL Monocytes # (Auto) 0.4 0.1-1.0 K/uL Eosinophils # (Auto) 0.20 0.00-0.70 K/uL Basophils # (Auto) 0.02 0.00-0.20 K/uL Absolute Immature Granulocyte (auto 0.02 0-1 K/uL Nucleated Red Blood Cells 0.0 0.0-0.19 % Sodium Level 142 136-145 mmol/L Potassium Level 4.1 3.5-5.1 mmol/L Chloride Level 106 101-111 mmol/L Carbon Dioxide Level 30 21-32 mmol/L Blood Urea Nitrogen 8 7-18 mg/dL Creatinine 0.7 0.5-1.0 mg/dL Glomerular Filtration Rate Calc 116 >90 mL/min Random Glucose 117 H 70-105 mg/dL Total Calcium 9.2 8.5-10.1 mg/dL Total Bilirubin 0.3 0.2-1.0 mg/dL Aspartate Amino Transf (AST/SGOT) 72 H 10-37 U/L Alanine Aminotransferase (ALT/SGPT) 132 H 12-78 U/L Alkaline Phosphatase 93 50-136 U/L Total Protein 7.0 6.0-8.3 g/dL Albumin 3.1 L 3.5-5.0 g/dL Current Medications Medications (Trade) Dose Ordered Sig/Ara Route PRN Reason Start Time Stop Time Status Last Admin Dose Admin Ceftriaxone Sodium 2 gm/ Sodium Chloride 100 ml @ 200 mls/hr Q24H IV 08/25/24 20:00 08/25/24 20:13 DC Ceftriaxone Sodium (Rocephin 2gm Inj) 2 gm Q24H IVPB 08/25/24 20:30 09/04/24 20:29 08/28/24 20:02 2 GM Famotidine (Pepcid 20mg Vial) 20 mg BID IV 08/25/24 21:00 09/24/24 20:59 08/29/24 08:39 20 MG Fat Emulsion Intravenous 250 ml @ 42 mls/hr Q24H IV 08/26/24 14:00 09/25/24 13:59 08/28/24 14:39 42 MLS/HR Hydromorphone HCl (DiLAUDid 0.5MG INJ) 0.5 mg Q4H PRN IVP SEVERE PAIN (7-10) 08/27/24 01:00 08/28/24 10:07 DC 08/28/24 09:48 0.5 MG Hydromorphone HCl (DiLAUDid 0.5MG INJ) 0.5 mg Q4H PRN IVP SEVERE PAIN (7-10) 08/28/24 17:30 09/02/24 17:29 08/29/24 08:40 0.5 MG Hydromorphone HCl (DiLAUDid 0.5MG INJ) 0.5 mg Q4H PRN IVP SEVERE PAIN (7-10) 08/25/24 18:30 08/27/24 00:43 DC 08/26/24 20:20 0.5 MG Ketorolac Tromethamine (toRADol) 30 mg Q6H PRN IVP SEVERE PAIN (7-10) 08/28/24 10:00 08/28/24 17:26 DC 08/28/24 12:47 30 MG Lactated Ringer's 1,000 ml @ 100 mls/hr Q10H IV 08/25/24 20:00 09/24/24 19:59 08/29/24 04:26 100 MLS/HR Morphine Sulfate (morPHINE 2MG SYG) 2 mg Q4H4 PRN IVP SEVERE PAIN (7-10) 08/27/24 14:00 08/28/24 10:07 DC 08/27/24 16:27 2 MG Octreotide Acetate (SandoSTATIN) 100 mcg BID IV 08/27/24 21:00 09/26/24 20:59 08/29/24 08:39 100 MCG Ondansetron HCl (zoFRAN 4MG INJ) 4 mg Q6H PRN IV NAUSEA/VOMITING 08/25/24 20:00 09/24/24 19:59 08/29/24 08:38 4 MG Pharmacy Profile Note (Pharmacy Communication) 1 each AD MISC 08/26/24 09:00 08/25/24 20:23 DC DIAGNOSTICS / RADIOLOGY: PATIENT: KIKI HENDRIX MR#: [id number] : 1990 SEX: F AGE: 34 LOCATION: 3D ORDER 99 STATUS: ADM IN REPORT#: [id number] SERVICE 9 REASON: POST GASTRIC BYPASS WITH ABD WOUND AND FISTULA ORDERING PHYSICIAN: ASIM HUGO MD PROCEDURE: ABSC FIST - XR ABSCESS FISTULA STUDY XR ABSCESS FISTULA STUDY REASON: POST GASTRIC BYPASS WITH ABD WOUND AND FISTULA COMPARISON: None TECHNIQUE: Exam was performed with fluoroscopic observation. Procedure was discussed with the patient. Anterior abdominal wall fistula was identified and cleaned with Betadine. Catheter was entered with a 5 Portuguese soft red rubber catheter. This passed easily into a small bowel loop, this was confirmed with contrast injection. Patient was then sent for postprocedure CT as per physician's request. IMPRESSION: 1. Documentation of a fistula into the small bowel from the anterior abdominal wall lesion, as described above. 2. Fluoroscopy time 0.3 minutes. DICTATED BY: TEAGAN GALLOWAY MD DATE: 08/28/241229 ELECTRONICALLY SIGNED BY: TEAGAN GALLOWAY MD DATE: 08/28/241233 PATIENT: KIKI HENDRIX MR#: [id number] : 1990 SEX: F AGE: 34 LOCATION: [facility] ORDER 99 STATUS: ADM IN REPORT#: [id number] SERVICE 9 REASON: post IR fistulogram ORDERING PHYSICIAN: ASIM HUGO MD PROCEDURE: ABD PEL WO - CT ABDOMEN/PELVIS W/O CONTRAST CT ABDOMEN/PELVIS W/O CONTRAST REASON: post IR fistulogram COMPARISON: 08/25/2024. TECHNIQUE: Images were obtained following injection of contrast into small bowel loops of the the midline fistula, using a red rubber catheter. FINDINGS: Lung bases are clear. There are no focal liver lesions. There are normal-appearing kidneys.. Spleen and pancreas appear unremarkable. There has been a previous cholecystectomy. There is contrast outlining the fistulous tract and extending into a mid small bowel loop. This involves the loop immediately beneath the open anterior abdominal wall incision. Contrast passes into several additional mid jejunal small bowel loops. There are no dilated loops to suggest obstruction and there is no leak. Small bowel loops appear otherwise unremarkable. The colon also appears normal. The appendix was not well seen. There is no evidence of free fluid or intraperitoneal air. There are no focal fluid collections. Aorta and retroperitoneum appear normal as do pelvic soft tissue structures. The anterior abdominal wall is intact. Osseous structures appear unremarkable. IMPRESSION: 1. Small fistulous tract outlined with contrast injection as described, this extends into a mid small bowel loop which is immediately subjacent to the open wound. 2. No evidence of leak or obstruction, the exam is otherwise unremarkable. CT was performed with one or more following dose reduction techniques: automated exposure control, adjustment of the mA and kv according to patient's size, or use of a iterative reconstruction technique. DICTATED BY: TEAGAN GALLOWAY MD DATE: 08/28/241242 ELECTRONICALLY SIGNED BY: TEAGAN GALLOWAY MD DATE: 08/28/241246 ASSESSMENT: Chest pain unspecified POA Intractable nausea and abdominal pain POA Acute urinary tract infection POA Postoperative pain POA Recent laparoscopic converted to an open laparotomy small bowel resection and reconstruction of jejunojejunal anastomosis POA Elevated liver enzymes POA Elevated lipase POA Recent small enterocutaneous fistula POA Obesity POA History of gastric bypass POA PLAN: *Patient will be kept overnight for observation *Home health arrangements for potential TPN to be set up by case management *Patient had a fistulogram which showed a fistula into the small bowel from an anterior wall lesion and a CT abdomen/pelvis showed a small fistulous tract that extends into a small mid bowel loop which is subjacent to the open wound. No evidence of leak or obstruction seen. *No surgical intervention planned by general surgery. *Case management consult placed. *Continue on NPO *Continue patient on TPN at 88 mL/hour *Continue patient on Rocephin 2 gram IV for empiric coverage *Continue on Famotidine 20 mg IV bid for GI prophylaxis *We will replace electrolytes as needed per protocol *We will prn medication for fever,pain,cough and nausea *We will reconcile home meds once medlist available *We will request labs in am *Further orders to follow depending on above results Case discussed with attending physician and came up with above treatment and plan of care. ATTESTATION BY PHYSICIAN I have seen and examined the patient. I reviewed the documentation, medical decision making, and treatment plan as noted by the mid-level provider above. I agree with the findings and plan of care. Robbie Blankenship MD OBI,NEGRITO Gandara MD Aug 29, 2024 08:47
--- NOTE | 2024-08-29 11:01 | PN ---
This is a 34-year-old female status post gastric bypass postoperative fistula formation Interval history: This 34-year-old female seen in her room resting patient continues with TPN and NPO status Fistulogram and CT confirming small fistula but still present No significant pain reported today In no acute events reported overnight Physical exam General: Awake alert and oriented Heart: Regular rate and rhythm} Lungs: [Clear to auscultation no distress Abdomen: [Soft, wound bandaged and packed Assessment and plan Dr. Han discussed findings with the radiologist Patient to remain NPO on TPN Patient will be kept overnight for observation Home health arrangements for potential TPN to be set up by case management Nursing report any further acute events Vitals/Labs Vital Signs Date Time Temp Pulse Resp B/P (MAP) Pulse Ox O2 Delivery O2 Flow Rate FiO2 08/29/24 04:00 97.9 82 17 140/86 97 Room Air 08/28/24 20:00 0 21 Medications Current Medications Morphine Sulfate 4 mg ONCE ONCE IVP Last administered on 08/25/24at 14:32; Start 08/25/24 at 14:30; Stop 08/25/24 at 14:31; Status DC Ondansetron HCl 4 mg ONCE ONCE IVP Last administered on 08/25/24at 14:31; Start 08/25/24 at 14:30; Stop 08/25/24 at 14:31; Status DC Sodium Chloride 1,000 ml @ 0 mls/hr ONCE ONCE IV Last administered on 08/25/24at 14:31; Start 08/25/24 at 14:30; Stop 08/25/24 at 14:31; Status DC Hydromorphone HCl 0.5 mg ONCE ONCE IVP Last administered on 08/25/24at 15:52; Start 08/25/24 at 16:00; Stop 08/25/24 at 16:01; Status DC Hydromorphone HCl 0.5 mg Q4H PRN IVP Last administered on 08/26/24at 20:20; Start 08/25/24 at 18:30; Stop 08/27/24 at 00:43; Status DC Ondansetron HCl 4 mg Q6H PRN IV Last administered on 08/29/24at 08:38; Start 08/25/24 at 20:00; Stop 09/24/24 at 19:59 Ceftriaxone Sodium 2 gm/ Sodium Chloride 100 ml @ 200 mls/hr Q24H IV; Start 08/25/24 at 20:00; Stop 08/25/24 at 20:13; Status DC Famotidine 20 mg BID IV Last administered on 08/29/24at 08:39; Start 08/25/24 at 21:00; Stop 09/24/24 at 20:59 Pharmacy Profile Note 1 each AD MISC; Start 08/26/24 at 09:00; Stop 08/25/24 at 20:23; Status DC Lactated Ringer's 1,000 ml @ 100 mls/hr Q10H IV Last administered on 08/29/24at 04:26; Start 08/25/24 at 20:00; Stop 09/24/24 at 19:59 Ceftriaxone Sodium 2 gm Q24H IVPB Last administered on 08/28/24at 20:02; Start 08/25/24 at 20:30; Stop 09/04/24 at 20:29 Potassium Chloride 100 ml @ 50 mls/hr ONCE ONCE IV Last administered on 08/26/24at 09:40; Start 08/26/24 at 09:00; Stop 08/26/24 at 10:59; Status DC Amino Acids/ Electrolytes/ Dextrose 2,000 ml @ 83 mls/hr ONCE ONCE IV Last adm inistered on 08/26/24at 15:49; Start 08/26/24 at 14:00; Stop 08/27/24 at 14:05; Status DC Fat Emulsion Intravenous 250 ml @ 42 mls/hr Q24H IV Last administered on 08/28/24at 14:39; Start 08/26/24 at 14:00; Stop 09/25/24 at 13:59 Hydromorphone HCl 0.5 mg Q4H PRN IVP Last administered on 08/28/24at 09:48; Start 08/27/24 at 01:00; Stop 08/28/24 at 10:07; Status DC Morphine Sulfate 2 mg Q4H4 PRN IVP Last administered on 08/27/24at 16:27; Start 08/27/24 at 14:00; Stop 08/28/24 at 10:07; Status DC Amino Acids/ Electrolytes/ Dextrose 2,000 ml @ 83 mls/hr ONCE ONCE IV Last administered on 08/27/24at 16:43; Start 08/27/24 at 16:00; Stop 08/28/24 at 16:05; Status DC Octreotide Acetate 100 mcg BID IV Last administered on 08/29/24at 08:39; Start 08/27/24 at 21:00; Stop 09/26/24 at 20:59 Ketorolac Tromethamine 30 mg Q6H PRN IVP Last administered on 08/28/24at 12:47; Start 08/28/24 at 10:00; Stop 08/28/24 at 17:26; Status DC Lactulose 20 gm ONCE ONCE PO; Start 08/28/24 at 10:00; Stop 08/28/24 at 10:03; Status DC Iohexol 50 ml STK-MED ONCE IV; Start 08/28/24 at 10:25; Stop 08/28/24 at 10:25; Status DC Hydromorphone HCl 0.5 mg Q4H PRN IVP Last administered on 08/29/24at 08:40; Start 08/28/24 at 17:30; Stop 09/02/24 at 17:29 Amino Acids/ Electrolytes/ Dextrose 2,000 ml @ 83 mls/hr ONCE ONCE IV Last administered on 08/28/24at 18:49; Start 08/28/24 at 18:30; Stop 08/29/24 at 18:35 MANUEL HERNÁNDEZ Jr. Aug 29, 2024 11:01
--- NOTE | 2024-08-29 11:30 | NUR ---
BLOOD GLUCOSE AT 115. NO INSULIN COVERAGE NEEDED AT THIS TIME.
--- NOTE | 2024-08-29 12:45 | NUR ---
PERFORMED WOUND CARE DIRECTED BY PHYSICIAN. SURROUNDING AREA INTACT, FETID STRONG ODOR COMING FROM WOUND, YELLOWISH DRAINAGE. PERFORMED WET TO DRY. PATIENT TOLERATED WELL.
--- NOTE | 2024-08-29 13:07 | NUR ---
Discharge Update: Patient was denied acceptance at [facility]. Plan is now for home with current home health. Spoke to Marisela at [facility], requesting updated clinical. Clinicals sent.
--- NOTE | 2024-08-29 15:44 | NUR ---
Nutritional f/u Note: Chart, meds, and labs Reviewed. Pt continues on TPN Recommend: -When medically feasible and cleared by MD, consider CLinimix 5/15 % via central line at a rate of 90ml/hr, Include 10ml adult MVI and 3ml trace elements. -Lipid emulsion x 3 weekly M, W, F to prevent essential fatty acid deficiency -Check Lipid Panel weekly on Mondays -Check HA1C to obtain the three-month average of blood sugar. -Check folate, iron, vit b12, and Vit D levels to rule out deficiencies. Per research low vitamin D may contribute to insulin resistance + vit. D deficiency may impair wound healing. Pt with severe wt loss in 2 months. - Electrolyte replacements per protocol -Monitor PPN tolerance, wt, and labs-If No BM >3days consider bowel stimulant. - Please notify RD if additional nutrition concerns arise. Addendum: 08/29/24 at [address] Amended: Links added.
--- NOTE | 2024-08-29 16:30 | NUR ---
BLOOD GLUCOSE AT 113. NO INSULIN COVERAGE NEEDED AT THIS TIME.
--- NOTE | 2024-08-29 16:59 | NUR ---
Discharge Update: Pt. is authorized to continue care with [facility]. As per patient and home health, formula has been delivered to patient's home. Heavenly, patient's nurse made aware. Yellow sheet flagged and placed in patient's chart for nurse to call report. Adam/Dr. Han called for d/c order. States will not discharge today.
[2024-08-29] MEDS: acetaMINOPHEN WITH coDEINE 1 TAB TAB PO PRN (17:02)
[2024-08-29] MEDS: hydroMORPHone 0.5 MG SYG (0.5MG/0.5ML) IVP PRN (18:34)
[2024-08-29] MEDS: CLINIMIX-E4.25%AA/D5+LYT2000ML 2,000 ML IV ONE (18:36)
[2024-08-30 03:33] VITALS: BP 133/74; PULSE 65; RESP 18; TEMP 98
--- NOTE | 2024-08-30 07:00 | NUR ---
PATIENT ALERT, ORIENTED IN PERSON, TIME AND PLACE. NO SIGNS OF RESPIRATORY DISTRESS. BOWEL SOUNDS PRESENT IN ALL FOUR ABDOMINAL QUADRANTS. PERFORMED WOUND CARE DIRECTED BY PHYSICIAN. DORSALIS PEDIS PULSE PRESENT AND STRONG IN ALL FOUR ABDOMINAL QUADRANTS. DISCUSSED PLN OF CARE, PAIN MANAGEMENT AND WOUND CARE. PATIENT VERBALIZED UNDERSTANDING.
[2024-08-30 08:00] VITALS: BP 136/75; PULSE 74; RESP 18; TEMP 97.6; O2SAT 97
--- NOTE | 2024-08-30 10:38 | PN ---
This is a 34-year-old female status post gastric bypass postoperative fistula formation Interval history: This 34-year-old female seen in her room resting patient continues with TPN and NPO status No significant pain reported today and patient has in the process of being converted to p.o. pain management for potential discharge Patient is apprehensive about being discharged at this time In no acute events reported overnight Physical exam General: Awake alert and oriented Heart: Regular rate and rhythm} Lungs: [Clear to auscultation no distress Abdomen: [Soft, wound bandaged and packed Assessment and plan Patient is to continue under observation. Dr. Han to see patient later today Possible discharge tomorrow Patient to remain NPO Stressed the importance of ambulation and was working with physical therapy Surgical team to follow patient closely and nursing report any further acute events Vitals/Labs Vital Signs Date Time Temp Pulse Resp B/P (MAP) Pulse Ox O2 Delivery O2 Flow Rate FiO2 08/30/24 08:00 97.5 74 18 136/75 97 Room Air 21 08/29/24 20:00 0 Medications Current Medications Morphine Sulfate 4 mg ONCE ONCE IVP Last administered on 08/25/24at 14:32; Start 08/25/24 at 14:30; Stop 08/25/24 at 14:31; Status DC Ondansetron HCl 4 mg ONCE ONCE IVP Last administered on 08/25/24at 14:31; Start 08/25/24 at 14:30; Stop 08/25/24 at 14:31; Status DC Sodium Chloride 1,000 ml @ 0 mls/hr ONCE ONCE IV Last administered on 08/25/24at 14:31; Start 08/25/24 at 14:30; Stop 08/25/24 at 14:31; Status DC Hydromorphone HCl 0.5 mg ONCE ONCE IVP Last administered on 08/25/24at 15:52; Start 08/25/24 at 16:00; Stop 08/25/24 at 16:01; Status DC Hydromorphone HCl 0.5 mg Q4H PRN IVP Last administered on 08/26/24at 20:20; Start 08/25/24 at 18:30; Stop 08/27/24 at 00:43; Status DC Ondansetron HCl 4 mg Q6H PRN IV Last administered on 08/30/24at 09:27; Start 08/25/24 at 20:00; Stop 09/24/24 at 19:59 Ceftriaxone Sodium 2 gm/ Sodium Chloride 100 ml @ 200 mls/hr Q24H IV; Start 08/25/24 at 20:00; Stop 08/25/24 at 20:13; Status DC Famotidine 20 mg BID IV Last administered on 08/30/24at 09:26; Start 08/25/24 at 21:00; Stop 09/24/24 at 20:59 Pharmacy Profile Note 1 each AD MISC; Start 08/26/24 at 09:00; Stop 08/25/24 at 20:23; Status DC Lactated Ringer's 1,000 ml @ 100 mls/hr Q10H IV Last administered on 08/29/24at 14:00; Start 08/25/24 at 20:00; Stop 09/24/24 at 19:59 Ceftriaxone Sodium 2 gm Q24H IVPB Last administered on 08/29/24at 20:37; Start 08/25/24 at 20:30; Stop 09/04/24 at 20:29 Potassium Chloride 100 ml @ 50 mls/hr ONCE ONCE IV Last administered on 08/26/24at 09:40; Start 08/26/24 at 09:00; Stop 08/26/24 at 10:59; Status DC Amino Acids/ Electrolytes/ Dextrose 2,000 ml @ 83 mls/hr ONCE ONCE IV Last administered on 08/26/24at 15:49; Start 08/26/24 at 14:00; Stop 08/27/24 at 14:05; Status DC Fat Emulsion Intravenous 250 ml @ 42 mls/hr Q24H IV Last administered on 08/29/24at 12:58; Start 08/26/24 at 14:00; Stop 09/25/24 at 13:59 Hydromorphone HCl 0.5 mg Q4H PRN IVP Last administered on 08/28/24at 09:48; Start 08/27/24 at 01:00; Stop 08/28/24 at 10:07; Status DC Morphine Sulfate 2 mg Q4H4 PRN IVP Last administered on 08/27/24at 16:27; Start 08/27/24 at 14:00; Stop 08/28/24 at 10:07; Status DC Amino Acids/ Electrolytes/ Dextrose 2,000 ml @ 83 mls/hr ONCE ONCE IV Last administered on 08/27/24at 16:43; Start 08/27/24 at 16:00; Stop 08/28/24 at 16:05; Status DC Octreotide Acetate 100 mcg BID IV Last administered on 08/30/24at 09:27; Start 08/27/24 at 21:00; Stop 09/26/24 at 20:59 Ketorolac Tromethamine 30 mg Q6H PRN IVP Last administered on 08/28/24at 12:47; Start 08/28/24 at 10:00; Stop 08/28/24 at 17:26; Status DC Lactulose 20 gm ONCE ONCE PO; Start 08/28/24 at 10:00; Stop 08/28/24 at 10:03; Status DC Iohexol 50 ml STK-MED ONCE IV; Start 08/28/24 at 10:25; Stop 08/28/24 at 10:25; Status DC Hydromorphone HCl 0.5 mg Q4H PRN IVP Last administered on 08/29/24at 12:55; Start 08/28/24 at 17:30; Stop 08/29/24 at 14:09; Status DC Amino Acids/ Electrolytes/ Dextrose 2,000 ml @ 83 mls/hr ONCE ONCE IV Last administered on 08/28/24at 18:49; Start 08/28/24 at 18:30; Stop 08/29/24 at 17:06; Status DC Acetaminophen/ Codeine Phosphate 2 tab Q6H PRN PO Last administered on 08/29/24at 17:02; Start 08/29/24 at 14:30; Stop 09/28/24 at 14:29 Hydromorphone HCl 0.5 mg Q6H PRN IVP Last administered on 08/30/24at 07:32; Start 08/29/24 at 19:00; Stop 09/03/24 at 18:59 Amino Acids/ Electrolytes/ Dextrose 2,000 ml @ 83 mls/hr ONCE ONCE IV Last administered on 08/29/24at 18:36; Start 08/29/24 at 17:30; Stop 08/30/24 at 17:35 MANUEL HERNÁNDEZ Jr. Aug 30, 2024 10:37
--- NOTE | 2024-08-30 11:30 | NUR ---
BLOOD GLUCOSE AT 124. NO INSULIN COVERAGE NEEDED AT THIS TIME.
[2024-08-30 12:00] VITALS: BP 134/78; PULSE 63; RESP 18; TEMP 97.9
--- NOTE | 2024-08-30 13:33 | PN ---
[facility] PROGRESS NOTE Date of Service: Aug 30, 2024 Time of Service: 13:20 SUBJECTIVE: HPI This is a 34 year old with past medical history of morbid obesity and bowel obstruction and a surgical history of gastric bypass who presents to the ED for multiple complaints such as :abdominal pain,nausea, chills ,constipation and chest pain which all started 4 days ago.Patient states she had a gastric bypass surgery done on 06/2024 by and patient went home and was admitted on 06/23/2024 for bowel obstruction and on 06/27/2024 she underwent a laparoscopic converted to an open laparotomy small bowel resection and reconstruction of jejunojejunal anastomosis and 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 and patient was on IV antibiotic and TPN and surgical wound required abdominal dressing change TID and patient transitioned to LTAC at [facility].As per patient she was discharged home and being visited by home health nurse .As PERpatient her incision site is draining feces smell like and she started having nauseated but no vomiting.Patient reports she started having on and off chest pain and becoming weak.Today symptoms have been becoming worse midsternal chest pain is becoming persistent ,described as chest pressure which radiates to left arm associated with diaphoresis and shortness of breath while laying down.Patient states she called and her PCP who advised her to come to the ED for evaluation. Interval History 08/27/24:Lying in bed at the time of evaluation. Alert and oriented and in no obvious distress. Denies any chest pain at that this time. Patient has a post surgical incision wound on the abdomen with wet to dry dressing in place. Continues on TPN for adequate nutrition. Consult has been placed to General surgery, pending their recommendations. Will place an order to case management for possible transfer to a detention acute care facility ([facility]) since patient is going to be on TPN for a while. 08/28/24: Lying in bed at the time of evaluation. Alert and oriented and in no obvious distress. Denies any chest pain at that this time. Patient has a post surgical incision wound on the abdomen with wet to dry dressing in place. Continues on TPN for adequate nutrition. Patient complains that she has not had a bowel movement in 5 days. Ordered Lactulose 30ml for constipation. Patient is scheduled for a fistulogram and a CT scan today 08/28/24. Continues with pain which she rates as a 9/10. Currently on Dilaudid 0.5mg and Morphine 2mg for pain. Added Ketorolac 30mg IV q8h for pain. 08/29/24: Lying in bed at the time of evaluation. Alert and oriented and in no obvious distress. Denies any chest pain at that this time. Patient has a post surgical incision wound on the abdomen with wet to dry dressing in place. Continues on TPN for adequate nutrition. Patient had a fistulogram which showed a fistula into the small bowel from an anterior wall lesion and a CT abdomen/pelvis showed a small fistulous tract that extends into a small mid bowel loop which is subjacent to the open wound. No evidence of leak or obstruction seen. Patient will be kept overnight for observation Home health arrangements for potential TPN to be set up by case management. 08/30/24:Lying in bed at the time of evaluation. Alert and oriented and in no obvious distress. Denies any chest pain at that this time. Patient has a post surgical incision wound on the abdomen with wet to dry dressing in place. Continues on TPN for adequate nutrition. Home health arrangements have been made for TPN to be administered at home. Just pending Dr Han to see patient prior to discharge. Plan is to discharge tomorrow. REVIEW OF SYSTEMS CONSTITUTIONAL: Denies fevers or night sweats. No unintentional weight loss reported. NEUROLOGICAL: Denies headache, amaurosis fugax, motor weakness, sensory deficit, vertigo/spinning sensation, gait abnormalities, or tremors. ENT: No hearing loss, otalgia, otorrhea, rhinitis, rhinorrhea, hoarseness, or sore throat. CARDIOVASCULAR: Denies orthopnea, paroxysmal nocturnal dyspnea, palpitations, life-threatening arrhythmias, claudication. PULMONARY: Denies cough, phlegm/sputum, hemoptysis, pleuritic chest pain. SLEEP: Denies morning headaches, daytime somnolence or napping. Denies difficulty falling asleep, staying asleep, waking from sleep. Denies knowledge of snoring. GASTROINTESTINAL: Denies any type of dysphagia to either liquids or solids. Denies pyrosis, early satiety,, diarrhea, constipation, or changes in stool consistency or caliber. Denies coffee-ground emesis, hematemesis, hematochezia, or melanotic stools. GENITOURINARY: Denies frequency, urgency, nocturia, hematuria or incontinence (Storage/Irritative symptoms.) Low urinary stream, splitting of the voiding stream, terminal dribbling. ENDOCRINOLOGIC: Denies polyuria, polydipsia, polyphagia or heat/cold intolerances. HEMATOLOGIC: Denies thrombophilia/previous clots, or coagulopathy/bleeding disorders. ONCOLOGIC: Denies personal history of malignancy. DERMATOLOGIC: Denies rashes or pruritus. PSYCHIATRIC: Denies any suicidal or homicidal ideation. Denies hallucinations. PHYSICAL EXAM GENERAL APPEARANCE: The patient is awake, alert, and oriented, in no acute cardiopulmonary distress. NEUROLOGICAL: Cranial nerves II-XII grossly intact. Motor is 5/5 in bilateral upper and lower extremities proximal to distal. No sensory deficits. HEENT: Face is symmetric. Pupils are equal and reactive. Extraocular movements are intact. NECK: Supple. No JVD. No thyromegaly. No submental, submandibular, pre- /postauricular, occipital or supraclavicular lymphadenopathy. CHEST: Normal chest expansion. No Telemetry. LUNGS: Absence of any rales, rhonchi or any wheezing. CARDIOVASCULAR: Regular. S1 and S2 normal. No appreciable rubs, murmurs or gallops. ABDOMEN: Soft and nondistended. There is no rebound, voluntary guarding, or rigidity. : Deferred. No Olson. EXTREMITIES: Non-edematous and not cyanotic. No clubbing. Good capillary refill. SKIN: Abdominal incision covered Vital Signs (last 8hr) Date Time Temp Pulse Resp B/P (MAP) Pulse Ox O2 Delivery O2 Flow Rate FiO2 08/30/24 12:00 97.9 63 18 134/78 97 Room Air 21 08/30/24 08:00 97.5 74 18 136/75 97 Room Air 21 LABS: Laboratory: Test 08/30/24 11:18 Range/Units Whole Blood Glucose 124 H 70-110 MG/DL Current Medications Medications (Trade) Dose Ordered Sig/Ara Route PRN Reason Start Time Stop Time Status Last Admin Dose Admin Acetaminophen/ Codeine Phosphate (TYLenol-coDEINE TAB) 2 tab Q6H PRN PO MODERATE PAIN (4-6) 08/29/24 14:30 09/28/24 14:29 08/30/24 11:12 Ceftriaxone Sodium 2 gm/ Sodium Chloride 100 ml @ 200 mls/hr Q24H IV 08/25/24 20:00 08/25/24 20:13 DC Ceftriaxone Sodium (Rocephin 2gm Inj) 2 gm Q24H IVPB 08/25/24 20:30 09/04/24 20:29 08/29/24 20:37 Famotidine (Pepcid 20mg Vial) 20 mg BID IV 08/25/24 21:00 09/24/24 20:59 08/30/24 09:26 Fat Emulsion Intravenous 250 ml @ 42 mls/hr Q24H IV 08/26/24 14:00 09/25/24 13:59 08/29/24 12:58 Hydromorphone HCl (DiLAUDid 0.5MG INJ) 0.5 mg Q4H PRN IVP SEVERE PAIN (7-10) 08/27/24 01:00 08/28/24 10:07 DC 08/28/24 09:48 Hydromorphone HCl (DiLAUDid 0.5MG INJ) 0.5 mg Q4H PRN IVP SEVERE PAIN (7-10) 08/28/24 17:30 08/29/24 14:09 DC 08/29/24 12:55 Hydromorphone HCl (DiLAUDid 0.5MG INJ) 0.5 mg Q4H PRN IVP SEVERE PAIN (7-10) 08/25/24 18:30 08/27/24 00:43 DC 08/26/24 20:20 Hydromorphone HCl (DiLAUDid 0.5MG INJ) 0.5 mg Q6H PRN IVP SEVERE PAIN (7-10) 08/29/24 19:00 09/03/24 18:59 08/30/24 07:32 Ketorolac Tromethamine (toRADol) 30 mg Q6H PRN IVP SEVERE PAIN (7-10) 08/28/24 10:00 08/28/24 17:26 DC 08/28/24 12:47 Lactated Ringer's 1,000 ml @ 100 mls/hr Q10H IV 08/25/24 20:00 09/24/24 19:59 08/29/24 14:00 Morphine Sulfate (morPHINE 2MG SYG) 2 mg Q4H4 PRN IVP SEVERE PAIN (7-10) 08/27/24 14:00 08/28/24 10:07 DC 08/27/24 16:27 Octreotide Acetate (SandoSTATIN) 100 mcg BID IV 08/27/24 21:00 09/26/24 20:59 08/30/24 09:27 Ondansetron HCl (zoFRAN 4MG INJ) 4 mg Q6H PRN IV NAUSEA/VOMITING 08/25/24 20:00 09/24/24 19:59 08/30/24 09:27 Pharmacy Profile Note (Pharmacy Communication) 1 each AD MISC 08/26/24 09:00 08/25/24 20:23 DC DIAGNOSTICS / RADIOLOGY: [ ] ASSESSMENT: Chest pain unspecified POA (resolved) Intractable nausea and abdominal pain POA (resolved) Acute urinary tract infection POA Postoperative pain POA Recent laparoscopic converted to an open laparotomy small bowel resection and reconstruction of jejunojejunal anastomosis POA Elevated liver enzymes POA Elevated lipase POA Recent small enterocutaneous fistula POA Obesity POA History of gastric bypass POA PLAN: *Pending Dr Mclean to see patient prior to discharge. Plan for discharge tomorrow. *Home health arrangements for potential TPN to be set up by case management *Patient had a fistulogram which showed a fistula into the small bowel from an anterior wall lesion and a CT abdomen/pelvis showed a small fistulous tract rolf t extends into a small mid bowel loop which is subjacent to the open wound. No evidence of leak or obstruction seen. *No surgical intervention planned by general surgery. *Case management consult placed. *Continue on NPO *Continue patient on TPN at 88 mL/hour *Continue patient on Rocephin 2 gram IV for empiric coverage *Continue on Famotidine 20 mg IV bid for GI prophylaxis *We will replace electrolytes as needed per protocol *We will prn medication for fever,pain,cough and nausea *We will reconcile home meds once medlist available *We will request labs in am *Further orders to follow depending on above results Case discussed with attending physician and came up with above treatment and plan of care. ATTESTATION BY PHYSICIAN I have seen and examined the patient. I reviewed the documentation, medical decision making, and treatment plan as noted by the mid-level provider above. I agree with the findings and plan of care. Robbie Blankenship MD OBI,NEGRITO Gandara MD Aug 30, 2024 13:33
[2024-08-30 16:00] VITALS: BP 133/74; PULSE 65; RESP 18; TEMP 98.8
--- NOTE | 2024-08-30 16:30 | NUR ---
BLOOD GLUCOSE AT 101. NO INSULIN COVERAGE NEEDED AT THIS TIME.
[2024-08-30] MEDS: CLINIMIX-E4.25%AA/D5+LYT2000ML 2,000 ML IV ONE (17:18)
[2024-08-30 20:00] VITALS: BP 141/74; PULSE 70; RESP 20; TEMP 97.9; O2SAT 97
[2024-08-30] MEDS: ketOROlac 30MG VIAL (30MG/ML) IVP PRN (21:02)
[2024-08-30 23:58] VITALS: BP 144/78; PULSE 64; RESP 18; TEMP 97.6
[2024-08-31] VITALS (7 sets, daily range): BP systolic 124–147; BP diastolic 65–87; PULSE 54–74; RESP 16–18; TEMP 97.9–99; O2SAT 98
--- NOTE | 2024-08-31 09:17 | NUR ---
cm note call received from nurse parsons with [facility] [phone] and updated, that is possible dc home today. they are ready just call report at ms.
--- NOTE | 2024-08-31 10:01 | PN ---
[facility] PROGRESS NOTE Date of Service: Aug 31, 2024 Time of Service: 10:01 SUBJECTIVE: HPI This is a 34 year old with past medical history of morbid obesity and bowel obstruction and a surgical history of gastric bypass who presents to the ED for multiple complaints such as :abdominal pain,nausea, chills ,constipation and chest pain which all started 4 days ago.Patient states she had a gastric bypass surgery done on 06/2024 by and patient went home and was admitted on 06/23/2024 for bowel obstruction and on 06/27/2024 she underwent a laparoscopic converted to an open laparotomy small bowel resection and reconstruction of jejunojejunal anastomosis and 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 and patient was on IV antibiotic and TPN and surgical wound required abdominal dressing change TID and patient transitioned to LTAC at [facility].As per patient she was discharged home and being visited by home health nurse .As PERpatient her incision site is draining feces smell like and she started having nauseated but no vomiting.Patient reports she started having on and off chest pain and becoming weak.Today symptoms have been becoming worse midsternal chest pain is becoming persistent ,described as chest pressure which radiates to left arm associated with diaphoresis and shortness of breath while laying down.Patient states she called and her PCP who advised her to come to the ED for evaluation. Interval History 08/27/24:Lying in bed at the time of evaluation. Alert and oriented and in no obvious distress. Denies any chest pain at that this time. Patient has a post surgical incision wound on the abdomen with wet to dry dressing in place. Continues on TPN for adequate nutrition. Consult has been placed to General surgery, pending their recommendations. Will place an order to case management for possible transfer to a long-term acute care facility ([facility]) since patient is going to be on TPN for a while. 08/28/24: Lying in bed at the time of evaluation. Alert and oriented and in no obvious distress. Denies any chest pain at that this time. Patient has a post surgical incision wound on the abdomen with wet to dry dressing in place. Continues on TPN for adequate nutrition. Patient complains that she has not had a bowel movement in 5 days. Ordered Lactulose 30ml for constipation. Patient is scheduled for a fistulogram and a CT scan today 08/28/24. Continues with pain which she rates as a 9/10. Currently on Dilaudid 0.5mg and Morphine 2mg for pain. Added Ketorolac 30mg IV q8h for pain. 08/29/24: Lying in bed at the time of evaluation. Alert and oriented and in no obvious distress. Denies any chest pain at that this time. Patient has a post surgical incision wound on the abdomen with wet to dry dressing in place. Continues on TPN for adequate nutrition. Patient had a fistulogram which showed a fistula into the small bowel from an anterior wall lesion and a CT abdomen/pelvis showed a small fistulous tract that extends into a small mid bowel loop which is subjacent to the open wound. No evidence of leak or obstruction seen. Patient will be kept overnight for observation Home health arrangements for potential TPN to be set up by case management. 08/30/24:Lying in bed at the time of evaluation. Alert and oriented and in no obvious distress. Denies any chest pain at that this time. Patient has a post surgical incision wound on the abdomen with wet to dry dressing in place. Continues on TPN for adequate nutrition. Home health arrangements have been made for TPN to be administered at home. Just pending Dr Han to see patient prior to discharge. Plan is to discharge tomorrow. 08/31/24: Lying in bed at the time of evaluation. Alert and oriented and in no obvious distress. Denies any chest pain at that this time. Patient has a post surgical incision wound on the abdomen with wet to dry dressing in place. Continues on TPN for adequate nutrition. Patient is hemodynamically stable however has not yet been cleared for discharge by the general surgery team. Pending their discharge recommendations. REVIEW OF SYSTEMS CONSTITUTIONAL: Denies fevers or night sweats. No unintentional weight loss reported. NEUROLOGICAL: Denies headache, amaurosis fugax, motor weakness, sensory deficit, vertigo/spinning sensation, gait abnormalities, or tremors. ENT: No hearing loss, otalgia, otorrhea, rhinitis, rhinorrhea, hoarseness, or sore throat. CARDIOVASCULAR: Denies orthopnea, paroxysmal nocturnal dyspnea, palpitations, life-threatening arrhythmias, claudication. PULMONARY: Denies cough, phlegm/sputum, hemoptysis, pleuritic chest pain. SLEEP: Denies morning headaches, daytime somnolence or napping. Denies difficulty falling asleep, staying asleep, waking from sleep. Denies knowledge of snoring. GASTROINTESTINAL: Denies any type of dysphagia to either liquids or solids. Denies pyrosis, early satiety,, diarrhea, constipation, or changes in stool consistency or caliber. Denies coffee-ground emesis, hematemesis, hematochezia, or melanotic stools. GENITOURINARY: Denies frequency, urgency, nocturia, hematuria or incontinence (Storage/Irritative symptoms.) Low urinary stream, splitting of the voiding stream, terminal dribbling. ENDOCRINOLOGIC: Denies polyuria, polydipsia, polyphagia or heat/cold intolerances. HEMATOLOGIC: Denies thrombophilia/previous clots, or coagulopathy/bleeding dis orders. ONCOLOGIC: Denies personal history of malignancy. DERMATOLOGIC: Denies rashes or pruritus. PSYCHIATRIC: Denies any suicidal or homicidal ideation. Denies hallucinations. PHYSICAL EXAM GENERAL APPEARANCE: The patient is awake, alert, and oriented, in no acute cardiopulmonary distress. NEUROLOGICAL: Cranial nerves II-XII grossly intact. Motor is 5/5 in bilateral upper and lower extremities proximal to distal. No sensory deficits. HEENT: Face is symmetric. Pupils are equal and reactive. Extraocular movements are intact. NECK: Supple. No JVD. No thyromegaly. No submental, submandibular, pre- /postauricular, occipital or supraclavicular lymphadenopathy. CHEST: Normal chest expansion. No Telemetry. LUNGS: Absence of any rales, rhonchi or any wheezing. CARDIOVASCULAR: Regular. S1 and S2 normal. No appreciable rubs, murmurs or gallops. ABDOMEN: Soft and nondistended. There is no rebound, voluntary guarding, or rigidity. : Deferred. No Olson. EXTREMITIES: Non-edematous and not cyanotic. No clubbing. Good capillary refill. SKIN: Abdominal incision covered Vital Signs (last 8hr) Date Time Temp Pulse Resp B/P (MAP) Pulse Ox O2 Delivery O2 Flow Rate FiO2 08/31/24 08:00 98.2 74 16 133/77 98 Room Air 08/31/24 04:00 98.2 71 18 147/83 99 Room Air LABS: Laboratory: Test 08/31/24 05:21 Range/Units Whole Blood Glucose 103 70-110 MG/DL Current Medications Medications (Trade) Dose Ordered Sig/Ara Route PRN Reason Start Time Stop Time Status Last Admin Dose Admin Acetaminophen/ Codeine Phosphate (TYLenol-coDEINE TAB) 2 tab Q6H PRN PO MODERATE PAIN (4-6) 08/29/24 14:30 09/28/24 14:29 08/30/24 23:04 2 TAB Ceftriaxone Sodium 2 gm/ Sodium Chloride 100 ml @ 200 mls/hr Q24H IV 08/25/24 20:00 08/25/24 20:13 DC Ceftriaxone Sodium (Rocephin 2gm Inj) 2 gm Q24H IVPB 08/25/24 20:30 09/04/24 20:29 08/30/24 21:02 2 GM Famotidine (Pepcid 20mg Vial) 20 mg BID IV 08/25/24 21:00 09/24/24 20:59 08/31/24 08:39 20 MG Fat Emulsion Intravenous 250 ml @ 42 mls/hr Q24H IV 08/26/24 14:00 09/25/24 13:59 08/30/24 13:44 42 MLS/HR Hydromorphone HCl (DiLAUDid 0.5MG INJ) 0.5 mg Q4H PRN IVP SEVERE PAIN (7-10) 08/27/24 01:00 08/28/24 10:07 DC 08/28/24 09:48 0.5 MG Hydromorphone HCl (DiLAUDid 0.5MG INJ) 0.5 mg Q4H PRN IVP SEVERE PAIN (7-10) 08/28/24 17:30 08/29/24 14:09 DC 08/29/24 12:55 0.5 MG Hydromorphone HCl (DiLAUDid 0.5MG INJ) 0.5 mg Q4H PRN IVP SEVERE PAIN (7-10) 08/25/24 18:30 08/27/24 00:43 DC 08/26/24 20:20 0.5 MG Hydromorphone HCl (DiLAUDid 0.5MG INJ) 0.5 mg Q6H PRN IVP SEVERE PAIN (7-10) 08/29/24 19:00 08/30/24 20:36 DC 08/30/24 13:47 0.5 MG Ketorolac Tromethamine (toRADol) 30 mg Q6H PRN IVP SEVERE PAIN (7-10) 08/28/24 10:00 08/28/24 17:26 DC 08/28/24 12:47 30 MG Ketorolac Tromethamine (toRADol) 30 mg Q6H PRN IVP SEVERE PAIN (7-10) 08/30/24 21:00 09/04/24 20:59 08/31/24 08:40 30 MG Lactated Ringer's 1,000 ml @ 100 mls/hr Q10H IV 08/25/24 20:00 09/24/24 19:59 08/30/24 21:10 100 MLS/HR Morphine Sulfate (morPHINE 2MG SYG) 2 mg Q4H4 PRN IVP SEVERE PAIN (7-10) 08/27/24 14:00 08/28/24 10:07 DC 08/27/24 16:27 2 MG Octreotide Acetate (SandoSTATIN) 100 mcg BID IV 08/27/24 21:00 09/26/24 20:59 08/31/24 08:39 100 MCG Ondansetron HCl (zoFRAN 4MG INJ) 4 mg Q6H PRN IV NAUSEA/VOMITING 08/25/24 20:00 09/24/24 19:59 08/31/24 08:42 4 MG Pharmacy Profile Note (Pharmacy Communication) 1 each AD MISC 08/26/24 09:00 08/25/24 20:23 DC DIAGNOSTICS / RADIOLOGY: [ ] ASSESSMENT: Chest pain unspecified POA (resolved) Intractable nausea and abdominal pain POA (resolved) Acute urinary tract infection POA Postoperative pain POA Recent laparoscopic converted to an open laparotomy small bowel resection and reconstruction of jejunojejunal anastomosis POA Elevated liver enzymes POA (resolved) Elevated lipase POA(resolved) Recent small enterocutaneous fistula POA Obesity POA History of gastric bypass POA PLAN: *Patient is hemodynamically stable , however has not been cleared for discharge by the surgical team. *Home health arrangements for potential TPN to be set up by case management *Patient had a fistulogram which showed a fistula into the small bowel from an anterior wall lesion and a CT abdomen/pelvis showed a small fistulous tract that extends into a small mid bowel loop which is subjacent to the open wound. No evidence of leak or obstruction seen. *No surgical intervention planned by general surgery. *Case management consult placed. *Continue on NPO *Continue patient on TPN at 88 mL/hour *Continue patient on Rocephin 2 gram IV for empiric coverage *Continue on Famotidine 20 mg IV bid for GI prophylaxis *We will replace electrolytes as needed per protocol *We will prn medication for fever,pain,cough and nausea *We will reconcile home meds once medlist available *We will request labs in am *Further orders to follow depending on above results Case discussed with attending physician and came up with above treatment and axel n of care. ATTESTATION BY PHYSICIAN I have seen and examined the patient. I reviewed the documentation, medical decision making, and treatment plan as noted by the mid-level provider above. I agree with the findings and plan of care. Robbie Blankenship MD OBI,NEGRITO Gandara MD Aug 31, 2024 10:01
--- NOTE | 2024-08-31 10:32 | PN ---
This is a 34-year-old female status post gastric bypass postoperative fistula formation Interval history: This 34-year-old female seen in her room resting patient continues with TPN and NPO status Patient is seen by Dr. Roy yesterday Dietary team to be consulted for instructions on TPN No acute events reported overnight Patient working and ambulating with physical therapy more General: Awake alert and oriented Heart: Regular rate and rhythm} Lungs: [Clear to auscultation no distress Abdomen: [Soft, wound bandaged and packed Assessment and plan Patient is to continue under observation. Await for dietary consult for instructions on TPN Patient is not cleared for discharge from surgical team at this time Patient to remain NPO Stressed the importance of ambulation and was working with physical therapy Surgical team to follow patient closely and nursing report any further acute events Vitals/Labs Vital Signs Date Time Temp Pulse Resp B/P (MAP) Pulse Ox O2 Delivery O2 Flow Rate FiO2 08/31/24 08:00 98.2 74 16 133/77 98 Room Air 08/30/24 20:00 0 21 Medications Current Medications Morphine Sulfate 4 mg ONCE ONCE IVP Last administered on 08/25/24at 14:32; Start 08/25/24 at 14:30; Stop 08/25/24 at 14:31; Status DC Ondansetron HCl 4 mg ONCE ONCE IVP Last administered on 08/25/24at 14:31; Start 08/25/24 at 14:30; Stop 08/25/24 at 14:31; Status DC Sodium Chloride 1,000 ml @ 0 mls/hr ONCE ONCE IV Last administered on 08/25/24at 14:31; Start 08/25/24 at 14:30; Stop 08/25/24 at 14:31; Status DC Hydromorphone HCl 0.5 mg ONCE ONCE IVP Last administered on 08/25/24at 15:52; Start 08/25/24 at 16:00; Stop 08/25/24 at 16:01; Status DC Hydromorphone HCl 0.5 mg Q4H PRN IVP Last administered on 08/26/24at 20:20; Start 08/25/24 at 18:30; Stop 08/27/24 at 00:43; Status DC Ondansetron HCl 4 mg Q6H PRN IV Last administered on 08/31/24at 08:42; Start 08/25/24 at 20:00; Stop 09/24/24 at 19:59 Ceftriaxone Sodium 2 gm/ Sodium Chloride 100 ml @ 200 mls/hr Q24H IV; Start 08/25/24 at 20:00; Stop 08/25/24 at 20:13; Status DC Famotidine 20 mg BID IV Last administered on 08/31/24at 08:39; Start 08/25/24 at 21:00; Stop 09/24/24 at 20:59 Pharmacy Profile Note 1 each AD MISC; Start 08/26/24 at 09:00; Stop 08/25/24 at 20:23; Status DC Lactated Ringer's 1,000 ml @ 100 mls/hr Q10H IV Last administered on 08/30/24at 21:10; Start 08/25/24 at 20:00; Stop 09/24/24 at 19:59 Ceftriaxone Sodium 2 gm Q24H IVPB Last administered on 08/30/24at 21:02; Start 08/25/24 at 20:30; Stop 09/04/24 at 20:29 Potassium Chloride 100 ml @ 50 mls/hr ONCE ONCE IV Last administered on 08/26/24at 09:40; Start 08/26/24 at 09:00; Stop 08/26/24 at 10:59; Status DC Amino Acids/ Electrolytes/ Dextrose 2,000 ml @ 83 mls/hr ONCE ONCE IV Last administered on 08/26/24at 15:49; Start 08/26/24 at 14:00; Stop 08/27/24 at 14:05; Status DC Fat Emulsion Intravenous 250 ml @ 42 mls/hr Q24H IV Last administered on 08/30/24at 13:44; Start 08/26/24 at 14:00; Stop 09/25/24 at 13:59 Hydromorphone HCl 0.5 mg Q4H PRN IVP Last administered on 08/28/24at 09:48; Start 08/27/24 at 01:00; Stop 08/28/24 at 10:07; Status DC Morphine Sulfate 2 mg Q4H4 PRN IVP Last administered on 08/27/24at 16:27; Start 08/27/24 at 14:00; Stop 08/28/24 at 10:07; Status DC Amino Acids/ Electrolytes/ Dextrose 2,000 ml @ 83 mls/hr ONCE ONCE IV Last administered on 08/27/24at 16:43; Start 08/27/24 at 16:00; Stop 08/28/24 at 16:05; Status DC Octreotide Acetate 100 mcg BID IV Last administered on 08/31/24at 08:39; Start 08/27/24 at 21:00; Stop 09/26/24 at 20:59 Ketorolac Tromethamine 30 mg Q6H PRN IVP Last administered on 08/28/24at 12:47; Start 08/28/24 at 10:00; Stop 08/28/24 at 17:26; Status DC Lactulose 20 gm ONCE ONCE PO; Start 08/28/24 at 10:00; Stop 08/28/24 at 10:03; Status DC Iohexol 50 ml STK-MED ONCE IV; Start 08/28/24 at 10:25; Stop 08/28/24 at 10:25; Status DC Hydromorphone HCl 0.5 mg Q4H PRN IVP Last administered on 08/29/24at 12:55; Start 08/28/24 at 17:30; Stop 08/29/24 at 14:09; Status DC Amino Acids/ Electrolytes/ Dextrose 2,000 ml @ 83 mls/hr ONCE ONCE IV Last administered on 08/28/24at 18:49; Start 08/28/24 at 18:30; Stop 08/29/24 at 17:06; Status DC Acetaminophen/ Codeine Phosphate 2 tab Q6H PRN PO Last administered on at 23:04; Start 08/29/24 at 14:30; Stop 09/28/24 at 14:29 Hydromorphone HCl 0.5 mg Q6H PRN IVP Last administered on 08/30/24at 13:47; Start 08/29/24 at 19:00; Stop 08/30/24 at 20:36; Status DC Amino Acids/ Electrolytes/ Dextrose 2,000 ml @ 83 mls/hr ONCE ONCE IV Last administered on 08/29/24at 18:36; Start 08/29/24 at 17:30; Stop 08/30/24 at 17:06; Status DC Amino Acids/ Electrolytes/ Dextrose 2,000 ml @ 83 mls/hr ONCE ONCE IV Last administered on 08/30/24at 17:18; Start 08/30/24 at 17:30; Stop 08/31/24 at 17:35 Ketorolac Tromethamine 30 mg Q6H PRN IVP Last administered on 08/31/24at 08:40; Start 08/30/24 at 21:00; Stop 09/04/24 at 20:59 MANUEL HERNÁNDEZ Jr. Aug 31, 2024 10:32
--- NOTE | 2024-08-31 11:21 | NUR ---
Nutritional f/u Note: Chart, meds, and labs Reviewed. . Pt has been on PPN due to shortage on 5/15% Clinimix . Pt continues on PPN clinimix 4.25%/5% which provides 85gm pro and 680kcal/day non lipid days On lipid days total PPN provides 1180 kcal and 85gm pro/day. Nursing called RD for education on TPN, RD's responsibility is limited to managing TPN during patients hospital stay. Home health to provide TPN education due to TPN will be managed by home health and will need to be monitored and adjusted depending on length of TPN, lab work, and tolerance. Please see RD recommendations below on d/c recommendations. The patients condition necessitates an excalation of PPN to TPN to adequately meet their nutritional requirements. Wt Status: current wt 90kg wt stable since admit. Recommend: -Check Lipid Panel and Liver panel, monitor triglycerides and liver enzymes to adjust lipid emulsion schedule. -Consider CLinimix 5/15 % via central line at a rate of 90ml/hr, Include 10ml adult MVI and 3ml trace elements. TPN to provide 108gm pro, 1534kcal, 324gm dextrose non lipid days and on lipid day: TPN provides 2034kcal, 108gm protein, 324gm dextrose/day. GIR 2.5 -Lipid emulsion x 3 weekly M, W, F to prevent essential fatty acid deficiency -Check HA1C to obtain the three-month average of blood sugar. -Check folate, iron, vit b12, and Vit D levels to rule out deficiencies. Per research low vitamin D may contribute to insulin resistance + vit. D deficiency may impair wound healing. Pt with severe wt loss in 2 months. -Monitor TPN tolerance, wt, and labs -If No BM >3days consider bowel stimulant. - Please notify RD if additional nutrition concerns arise. Addendum: 08/31/24 at [address] Amended: Links added.
--- NOTE | 2024-08-31 12:00 | NUR ---
cm note call made to Adam Copyholder, and discussed orders for tpn and education. gave orders for Home health agency to instruct again on process due to pt/family concerns regarding tpn administration. call made to with [facility], spoke to ANY cox at [facility] and and informed of need to reeducate the pt/family and visit daily until ready. per libia ruiz will followup with pt daily at [place].
--- NOTE | 2024-08-31 12:21 | NUR ---
SPOKE TO MANUEL GUERRA. PER MANUEL PT WILL NOT BE DISCHARGE TODAY. ANY OTHER QUESTIONS REFER TO DR HUGO FOR REASON PT NOT CLEARED FOR DISCHARGE.
--- NOTE | 2024-08-31 12:27 | NUR ---
DISCHARGE PLAN CALL PLACED TO [facility] [phone] SPOKE TO VARGHESE AGARWAL. NOTIFIED POSSIBLE DISCHARGE TOMORROW. MADE HER AWARE OF PT STILL ON CLINIMIX. BUFFY
--- NOTE | 2024-08-31 13:00 | NUR ---
CM NOTE [phone] AND STATES THAT IF PT RETURNING HOME WITH TPN, WILL NEED TO FAX ORDERS TO THEM AT [phone]. AND WILL LIKELY NOT BE ABLE TO GET TPN DELIVERED UNTIL LIKELY TUESDAY LATE OR TUESDAY.
[2024-09-01] VITALS (8 sets, daily range): BP systolic 118–150; BP diastolic 71–82; PULSE 50–87; RESP 16–20; TEMP 97.7–98.6; O2SAT 96–97
[2024-09-01] MEDS: CLINIMIX-E4.25%AA/D5+LYT2000ML 2,000 ML IV ONE (01:44)
[2024-09-01] MEDS: LIDOCAINE 4% ADH..PATCH TP ONE (04:16)
[2024-09-01 05:09] LABS: BASOPHILS # (AUTO) 0.02 K/uL (0.00-0.20); BASOPHILS % (AUTO) 0.3 % (0.0-5.0); EOSINOPHILS # (AUTO) 0.18 K/uL (0.00-0.70); HEMATOCRIT 34.9 % (36-48); IMMATURE GRANULOCYTE ABSOLUTE 0.02 K/uL (0-1); LYMPHOCYTES # (AUTO) 1.8 K/uL (1.0-4.8); LYMPHOCYTES % (AUTO) 30.5 % (21.0-51.0); MEAN CORPUSCULAR HEMOGLOBIN 28.5 pg (27.0-33.0); MEAN CORPUSCULAR HGB CONC 31.2 g/dL (32.0-36.0); MEAN CORPUSCULAR VOLUME 91.4 fL (79-99); MONOCYTES # (AUTO) 0.4 K/uL (0.1-1.0); MONOCYTES % (AUTO) 7.4 % (3.0-13.0); NEUTROPHILS # (AUTO) 3.5 K/uL (1.8-7.7); NEUTROPHILS % (AUTO) 58.5 % (40.0-77.0); PLATELET COUNT (AUTO) 250 K/uL (130-400); RED BLOOD CELL COUNT(AUTO) 3.82 MIL/uL (4.00-5.50); RED CELL DISTRIBUTION WIDTH 13.1 % (11.0-15.5)
[2024-09-01 05:27] LABS: ALBUMIN 3.1 g/dL (3.5-5.0); BILIRUBIN,DIRECT 0.1 mg/dL (0.0-0.3); BILIRUBIN,TOTAL 0.4 mg/dL (0.2-1.0); CREATININE 0.8 mg/dL (0.5-1.0); POTASSIUM 3.6 mmol/L (3.5-5.1); TOTAL PROTEIN, SERUM 6.7 g/dL (6.0-8.3)
--- NOTE | 2024-09-01 14:07 | PN ---
[facility] PROGRESS NOTE Date of Service: Sep 01, 2024 Time of Service: 14:06 Patient was seen and examined. Case discussed with the RN. She is doing well he is in some sort of pain but no acute events or change in clinical status. Surgery wants her to stay in the hospital but clinically she continues to do well and wants to go home. Hopefully this will be achieved soon SUBJECTIVE: HPI This is a 34 year old with past medical history of morbid obesity and bowel obstruction and a surgical history of gastric bypass who presents to the ED for multiple complaints such as :abdominal pain,nausea, chills ,constipation and chest pain which all started 4 days ago.Patient states she had a gastric bypass surgery done on 06/2024 by and patient went home and was admitted on 06/23/2024 for bowel obstruction and on 06/27/2024 she underwent a laparoscopic converted to an open laparotomy small bowel resection and reconstruction of jejunojejunal anastomosis and 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 and patient was on IV antibiotic and TPN and surgical wound required abdominal dressing change TID and patient transitioned to LTAC at [facility] facility.As per patient she was discharged home and being visited by home health nurse .As PERpatient her incision site is draining feces smell like and she started having nauseated but no vomiting.Patient reports she started having on and off chest pain and becoming weak.Today symptoms have been becoming worse midsternal chest pain is becoming persistent ,described as chest pressure which radiates to left arm associated with diaphoresis and shortness of breath while laying down.Patient states she called and her PCP who advised her to come to the ED for evaluation. Interval History 08/27/24:Lying in bed at the time of evaluation. Alert and oriented and in no obvious distress. Denies any chest pain at that this time. Patient has a post surgical incision wound on the abdomen with wet to dry dressing in place. Continues on TPN for adequate nutrition. Consult has been placed to General surgery, pending their recommendations. Will place an order to case management for possible transfer to a [facility] acute care facility ([facility]) since patient is going to be on TPN for a while. 08/28/24: Lying in bed at the time of evaluation. Alert and oriented and in no obvious distress. Denies any chest pain at that this time. Patient has a post surgical incision wound on the abdomen with wet to dry dressing in place. Continues on TPN for adequate nutrition. Patient complains that she has not had a bowel movement in 5 days. Ordered Lactulose 30ml for constipation. Patient is scheduled for a fistulogram and a CT scan today 08/28/24. Continues with pain which she rates as a 9/10. Currently on Dilaudid 0.5mg and Morphine 2mg for pain. Added Ketorolac 30mg IV q8h for pain. 08/29/24: Lying in bed at the time of evaluation. Alert and oriented and in no obvious distress. Denies any chest pain at that this time. Patient has a post surgical incision wound on the abdomen with wet to dry dressing in place. Continues on TPN for adequate nutrition. Patient had a fistulogram which showed a fistula into the small bowel from an anterior wall lesion and a CT abdomen/pelvis showed a small fistulous tract that extends into a small mid bowel loop which is subjacent to the open wound. No evidence of leak or obstruction seen. Patient will be kept overnight for observation Home health arrangements for potential TPN to be set up by case management. 08/30/24:Lying in bed at the time of evaluation. Alert and oriented and in no obvious distress. Denies any chest pain at that this time. Patient has a post surgical incision wound on the abdomen with wet to dry dressing in place. Continues on TPN for adequate nutrition. Home health arrangements have been made for TPN to be administered at home. Just pending Dr Han to see patient prior to discharge. Plan is to discharge tomorrow. 08/31/24: Lying in bed at the time of evaluation. Alert and oriented and in no obvious distress. Denies any chest pain at that this time. Patient has a post surgical incision wound on the abdomen with wet to dry dressing in place. Continues on TPN for adequate nutrition. Patient is hemodynamically stable however has not yet been cleared for discharge by the general surgery team. Pending their discharge recommendations. REVIEW OF SYSTEMS CONSTITUTIONAL: Denies fevers or night sweats. No unintentional weight loss reported. NEUROLOGICAL: Denies headache, amaurosis fugax, motor weakness, sensory deficit, vertigo/spinning sensation, gait abnormalities, or tremors. ENT: No hearing loss, otalgia, otorrhea, rhinitis, rhinorrhea, hoarseness, or sore throat. CARDIOVASCULAR: Denies orthopnea, paroxysmal nocturnal dyspnea, palpitations, life-threatening arrhythmias, claudication. PULMONARY: Denies cough, phlegm/sputum, hemoptysis, pleuritic chest pain. SLEEP: Denies morning headaches, daytime somnolence or napping. Denies difficulty falling asleep, staying asleep, waking from sleep. Denies knowledge of snoring. GASTROINTESTINAL: Denies any type of dysphagia to either liquids or solids. Denies pyrosis, early satiety,, diarrhea, constipation, or changes in stool consistency or caliber. Denies coffee-ground emesis, hematemesis, hematochezia, or melanotic stools. GENITOURINARY: Denies frequency, urgency, nocturia, hematuria or incontinence (Storage/Irritative symptoms.) Low urinary stream, splitting of the voiding stream, terminal dribbling. ENDOCRINOLOGIC: Denies polyuria, polydipsia, polyphagia or heat/cold intolerances. HEMATOLOGIC: Denies thrombophilia/previous clots, or coagulopathy/bleeding disorders. ONCOLOGIC: Denies personal history of malignancy. DERMATOLOGIC: Denies rashes or pruritus. PSYCHIATRIC: Denies any suicidal or homicidal ideation. Denies hallucinations. PHYSICAL EXAM GENERAL APPEARANCE: The patient is awake, alert, and oriented, in no acute cardiopulmonary distress. NEUROLOGICAL: Cranial nerves II-XII grossly intact. Motor is 5/5 in bilateral upper and lower extremities proximal to distal. No sensory deficits. HEENT: Face is symmetric. Pupils are equal and reactive. Extraocular movements are intact. NECK: Supple. No JVD. No thyromegaly. No submental, submandibular, pre- /postauricular, occipital or supraclavicular lymphadenopathy. CHEST: Normal chest expansion. No Telemetry. LUNGS: Absence of any rales, rhonchi or any wheezing. CARDIOVASCULAR: Regular. S1 and S2 normal. No appreciable rubs, murmurs or gallops. ABDOMEN: Soft and nondistended. There is no rebound, voluntary guarding, or rigidity. : Deferred. No Olson. EXTREMITIES: Non-edematous and not cyanotic. No clubbing. Good capillary refill. SKIN: Abdominal incision covered Vital Signs (last 8hr) Date Time Temp Pulse Resp B/P (MAP) Pulse Ox O2 Delivery O2 Flow Rate FiO2 11/16/24 12:00 97.9 72 18 125/75 97 Room Air 09/01/24 08:55 96 Room Air* 0 21 09/01/24 08:00 97.7 72 18 134/77 96 Room Air LABS: Laboratory: Test 09/01/24 11:40 09/01/24 04:56 Range/Units Whole Blood Glucose 116 H 70-110 MG/DL White Blood Count 6.0 4.8-10.8 K/uL Red Blood Count 3.82 L 4.00-5.50 MIL/uL Hemoglobin 10.9 L 12.0-16.0 g/dL Hematocrit 34.9 L 36-48 % Mean Corpuscular Volume 91.4 79-99 fL Mean Corpuscular Hemoglobin 28.5 27.0-33.0 pg Mean Corpuscular Hemoglobin Concent 31.2 L 32.0-36.0 g/dL Red Cell Distribution Width 13.1 11.0-15.5 % Platelet Count 250 130-400 K/uL Mean Platelet Volume 9.2 7.5-10.5 fL Immature Granulocyte % (Auto) 0.3 0-1 % Neutrophils (%) (Auto) 58.5 40.0-77.0 % Lymphocytes (%) (Auto) 30.5 21.0-51.0 % Monocytes (%) (Auto) 7.4 3.0-13.0 % Eosinophils (%) (Auto) 3.0 0.0-8.0 % Basophils (%) (Auto) 0.3 0.0-5.0 % Neutrophils # (Auto) 3.5 1.8-7.7 K/uL Lymphocytes # (Auto) 1.8 1.0-4.8 K/uL Monocytes # (Auto) 0.4 0.1-1.0 K/uL Eosinophils # (Auto) 0.18 0.00-0.70 K/uL Basophils # (Auto) 0.02 0.00-0.20 K/uL Absolute Immature Granulocyte (auto 0.02 0-1 K/uL Nucleated Red Blood Cells 0.0 0.0-0.19 % Sodium Level 141 136-145 mmol/L Potassium Level 3.6 3.5-5.1 mmol/L Chloride Level 106 101-111 mmol/L Carbon Dioxide Level 30 21-32 mmol/L Blood Urea Nitrogen 8 7-18 mg/dL Creatinine 0.8 0.5-1.0 mg/dL Glomerular Filtration Rate Calc 98 >90 mL/min Random Glucose 116 H 70-105 mg/dL Total Calcium 9.2 8.5-10.1 mg/dL Total Bilirubin 0.4 0.2-1.0 mg/dL Direct Bilirubin 0.1 0.0-0.3 mg/dL Aspartate Amino Transf (AST/SGOT) 66 H 10-37 U/L Alanine Aminotransferase (ALT/SGPT) 160 H 12-78 U/L Alkaline Phosphatase 82 50-136 U/L Total Protein 6.7 6.0-8.3 g/dL Albumin 3.1 L 3.5-5.0 g/dL Triglycerides Level 107 30-200 mg/dL Cholesterol Level 122 <200 mg/dL LDL Cholesterol 71 0-99 mg/dL HDL Cholesterol 34 L 35-85 mg/dL Current Medications Medications (Trade) Dose Ordered Sig/Ara Route PRN Reason Start Time Stop Time Status Last Admin Dose Admin Acetaminophen/ Codeine Phosphate (TYLenol-coDEINE TAB) 2 tab Q6H PRN PO MODERATE PAIN (4-6) 08/29/24 14:30 09/28/24 14:29 08/31/24 21:54 2 TAB Ceftriaxone Sodium 2 gm/ Sodium Chloride 100 ml @ 200 mls/hr Q24H IV 08/25/24 20:00 08/25/24 20:13 DC Ceftriaxone Sodium (Rocephin 2gm Inj) 2 gm Q24H IVPB 08/25/24 20:30 09/04/24 20:29 08/31/24 20:55 2 GM Famotidine (Pepcid 20mg Vial) 20 mg BID IV 08/25/24 21:00 09/24/24 20:59 09/01/24 08:55 20 MG Fat Emulsion Intravenous 250 ml @ 42 mls/hr Q24H IV 08/26/24 14:00 09/25/24 13:59 09/01/24 13:20 42 MLS/HR Hydromorphone HCl (DiLAUDid 0.5MG INJ) 0.5 mg Q4H PRN IVP SEVERE PAIN (7-10) 08/27/24 01:00 08/28/24 10:07 DC 08/28/24 09:48 0.5 MG Hydromorphone HCl (DiLAUDid 0.5MG INJ) 0.5 mg Q4H PRN IVP SEVERE PAIN (7-10) 08/28/24 17:30 08/29/24 14:09 DC 08/29/24 12:55 0.5 MG Hydromorphone HCl (DiLAUDid 0.5MG INJ) 0.5 mg Q4H PRN IVP SEVERE PAIN (7-10) 08/25/24 18:30 08/27/24 00:43 DC 08/26/24 20:20 0.5 MG Hydromorphone HCl (DiLAUDid 0.5MG INJ) 0.5 mg Q6H PRN IVP SEVERE PAIN (7-10) 08/29/24 19:00 08/30/24 20:36 DC 08/30/24 13:47 0.5 MG Ketorolac Tromethamine (toRADol) 30 mg Q6H PRN IVP SEVERE PAIN (7-10) 08/28/24 10:00 08/28/24 17:26 DC 08/28/24 12:47 30 MG Ketorolac Tromethamine (toRADol) 30 mg Q6H PRN IVP SEVERE PAIN (7-10) 08/30/24 21:00 09/04/24 20:59 09/01/24 01:44 30 MG Lactated Ringer's 1,000 ml @ 100 mls/hr Q10H IV 08/25/24 20:00 09/24/24 19:59 08/30/24 21:10 100 MLS/HR Morphine Sulfate (morPHINE 2MG SYG) 2 mg Q4H4 PRN IVP SEVERE PAIN (7-10) 08/27/24 14:00 08/28/24 10:07 DC 08/27/24 16:27 2 MG Octreotide Acetate (SandoSTATIN) 100 mcg BID IV 08/27/24 21:00 09/26/24 20:59 08/31/24 20:55 100 MCG Ondansetron HCl (zoFRAN 4MG INJ) 4 mg Q6H PRN IV NAUSEA/VOMITING 08/25/24 20:00 09/24/24 19:59 09/01/24 08:55 4 MG Pharmacy Profile Note (Pharmacy Communication) 1 each AD MISC 08/26/24 09:00 11/9/24 20:23 DC DIAGNOSTICS / RADIOLOGY: [ ] ASSESSMENT: Chest pain unspecified POA (resolved) Intractable nausea and abdominal pain POA (resolved) Acute urinary tract infection POA Postoperative pain POA Recent laparoscopic converted to an open laparotomy small bowel resection and reconstruction of jejunojejunal anastomosis POA Elevated liver enzymes POA (resolved) Elevated lipase POA(resolved) Recent small enterocutaneous fistula POA Obesity POA History of gastric bypass POA PLAN: *Patient is hemodynamically stable , however has not been cleared for discharge by the surgical team. *Home health arrangements for potential TPN to be set up by case management *Patient had a fistulogram which showed a fistula into the small bowel from an anterior wall lesion and a CT abdomen/pelvis showed a small fistulous tract that extends into a small mid bowel loop which is subjacent to the open wound. No evidence of leak or obstruction seen. *No surgical intervention planned by general surgery. *Case management consult placed. *Continue on NPO *Continue patient on TPN at 88 mL/hour *Continue patient on Rocephin 2 gram IV for empiric coverage *Continue on Famotidine 20 mg IV bid for GI prophylaxis *We will replace electrolytes as needed per protocol *We will prn medication for fever,pain,cough and nausea *We will reconcile home meds once medlist available *We will request labs in am *Further orders to follow depending on above results Case discussed with attending physician and came up with above treatment and plan of care. LEAH MILLER MD Sep 01, 2024 14:07
--- NOTE | 2024-09-01 16:02 | PN ---
Patient looks better today. She has dougherty better. We are awaiting for proper TPN to be the liver at home. I have discussed with nurses we will continue with Intralipid daily in the TPN. We will check labs on Tuesday. No significant change in clinical condition and patient should be discharged home when the TPN at home is arranged by field case manager. We will prescribe so medication to sleep at night. Agree with not providing her more Dilaudid and patient understands that Vitals/Labs Vital Signs Date Time Temp Pulse Resp B/P (MAP) Pulse Ox O2 Delivery O2 Flow Rate FiO2 09/01/24 12:00 97.9 72 18 125/75 97 Room Air 09/01/24 08:55 0 21 Laboratory Tests 09/01/24 04:56 ASIM HUGO MD Sep 01, 2024 16:02
--- NOTE | 2024-09-01 16:43 | NUR ---
cm note faxed clinical requested to [phone] [facility] preexisting for TPN pt is using. calll also made to [facility] and spoke to Marsha shanks butadiene convertor operator. and states that pt has TPN still at home will verify with [facility]. informed that faxed updated orders to [facility] today.
[2024-09-01] MEDS: LIDOCAINE 4% ADH..PATCH TP SCH (21:08)
[2024-09-01] MEDS: LORazepam 2 MG/ML 1 ML VIAL IVP PRN (21:18)
[2024-09-02] MEDS: CLINIMIX-E4.25%AA/D5+LYT2000ML 2,000 ML IV ONE (00:57)
[2024-09-02 03:53] VITALS: BP 125/70; PULSE 69; RESP 16; TEMP 97.9
[2024-09-02 08:04] VITALS: BP 126/71; PULSE 69; RESP 20; TEMP 97.9
--- NOTE | 2024-09-02 09:44 | PN ---
[facility] PROGRESS NOTE Date of Service: Sep 02, 2024 Time of Service: 09:38 SUBJECTIVE: HPI This is a 34 year old with past medical history of morbid obesity and bowel obstruction and a surgical history of gastric bypass who presents to the ED for multiple complaints such as :abdominal pain,nausea, chills ,constipation and chest pain which all started 4 days ago.Patient states she had a gastric bypass surgery done on 06/2024 by and patient went home and was admitted on 06/23/2024 for bowel obstruction and on 06/27/2024 she underwent a laparoscopic converted to an open laparotomy small bowel resection and reconstruction of jejunojejunal anastomosis and 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 and patient was on IV antibiotic and TPN and surgical wound required abdominal dressing change TID and patient transitioned to LTAC at [facility].As per patient she was discharged home and being visited by home health nurse .As PERpatient her incision site is draining feces smell like and she started having nauseated but no vomiting.Patient reports she started having on and off chest pain and becoming weak.Today symptoms have been becoming worse midsternal chest pain is becoming persistent ,described as chest pressure which radiates to left arm associated with diaphoresis and shortness of breath while laying down.Patient states she called and her PCP who advised her to come to the ED for evaluation. Interval History 08/27/24:Lying in bed at the time of evaluation. Alert and oriented and in no obvious distress. Denies any chest pain at that this time. Patient has a post surgical incision wound on the abdomen with wet to dry dressing in place. Continues on TPN for adequate nutrition. Consult has been placed to General surgery, pending their recommendations. Will place an order to case management for possible transfer to a [facility] acute [facility] facility ([facility] [address] [facility]) since patient is going to be on TPN for a while. 08/28/24: Lying in bed at the time of evaluation. Alert and oriented and in no obvious distress. Denies any chest pain at that this time. Patient has a post surgical incision wound on the abdomen with wet to dry dressing in place. Continues on TPN for adequate nutrition. Patient complains that she has not had a bowel movement in 5 days. Ordered Lactulose 30ml for constipation. Patient is scheduled for a fistulogram and a CT scan today 08/28/24. Continues with pain which she rates as a 9/10. Currently on Dilaudid 0.5mg and Morphine 2mg for pain. Added Ketorolac 30mg IV q8h for pain. 08/29/24: Lying in bed at the time of evaluation. Alert and oriented and in no obvious distress. Denies any chest pain at that this time. Patient has a post surgical incision wound on the abdomen with wet to dry dressing in place. Continues on TPN for adequate nutrition. Patient had a fistulogram which showed a fistula into the small bowel from an anterior wall lesion and a CT abdomen/pelvis showed a small fistulous tract that extends into a small mid bowel loop which is subjacent to the open wound. No evidence of leak or obstruction seen. Patient will be kept overnight for observation Home health arrangements for potential TPN to be set up by case management. 08/30/24:Lying in bed at the time of evaluation. Alert and oriented and in no obvious distress. Denies any chest pain at that this time. Patient has a post surgical incision wound on the abdomen with wet to dry dressing in place. Continues on TPN for adequate nutrition. Home health arrangements have been made for TPN to be administered at home. Just pending Dr Han to see patient prior to discharge. Plan is to discharge tomorrow. 08/31/24: Lying in bed at the time of evaluation. Alert and oriented and in no obvious distress. Denies any chest pain at that this time. Patient has a post surgical incision wound on the abdomen with wet to dry dressing in place. Continues on TPN for adequate nutrition. Patient is hemodynamically stable however has not yet been cleared for discharge by the general surgery team. Pending their discharge recommendations. 09/02/24: Patient seen at bedside. Alert and orientedc and in no obvious distress. Continues on TPN for nutrition. Denies any chest pain, abdominal pain, shortness of breath or palpitations. However complains of drainage of greenish colored fluid from the incision site. Denies any fever or chills. Patient was seen by Dr Toth yesterday. States that patient should be discharged home when the TPN at home is arranged by case fitter. REVIEW OF SYSTEMS CONSTITUTIONAL: Denies fevers or night sweats. No unintentional weight loss reported. NEUROLOGICAL: Denies headache, amaurosis fugax, motor weakness, sensory deficit, vertigo/spinning sensation, gait abnormalities, or tremors. ENT: No hearing loss, otalgia, otorrhea, rhinitis, rhinorrhea, hoarseness, or sore throat. CARDIOVASCULAR: Denies orthopnea, paroxysmal nocturnal dyspnea, palpitations, life-threatening arrhythmias, claudication. PULMONARY: Denies cough, phlegm/sputum, hemoptysis, pleuritic chest pain. SLEEP: Denies morning headaches, daytime somnolence or napping. Denies difficulty falling asleep, staying asleep, waking from sleep. Denies knowledge of snoring. GASTROINTESTINAL: Denies any type of dysphagia to either liquids or solids. Denies pyrosis, early satiety,, diarrhea, constipation, or changes in stool consistency or caliber. Denies coffee-ground emesis, hematemesis, hematochezia, or melanotic stools. GENITOURINARY: Denies frequency, urgency, nocturia, hematuria or incontinence (Storage/Irritative symptoms.) Low urinary stream, splitting of the voiding stream, terminal dribbling. ENDOCRINOLOGIC: Denies polyuria, polydipsia, polyphagia or heat/cold intolerances. HEMATOLOGIC: Denies thrombophilia/previous clots, or coagulopathy/bleeding disorders. ONCOLOGIC: Denies personal history of malignancy. DERMATOLOGIC: Denies rashes or pruritus. PSYCHIATRIC: Denies any suicidal or homicidal ideation. Denies hallucinations. PHYSICAL EXAM GENERAL APPEARANCE: The patient is awake, alert, and oriented, in no acute cardiopulmonary distress. NEUROLOGICAL: Cranial nerves II-XII grossly intact. Motor is 5/5 in bilateral upper and lower extremities proximal to distal. No sensory deficits. HEENT: Face is symmetric. Pupils are equal and reactive. Extraocular movements are intact. NECK: Supple. No JVD. No thyromegaly. No submental, submandibular, pre- /postauricular, occipital or supraclavicular lymphadenopathy. CHEST: Normal chest expansion. No Telemetry. LUNGS: Absence of any rales, rhonchi or any wheezing. CARDIOVASCULAR: Regular. S1 and S2 normal. No appreciable rubs, murmurs or gallops. ABDOMEN: Soft and nondistended. There is no rebound, voluntary guarding, or rigidity. : Deferred. No Olson. EXTREMITIES: Non-edematous and not cyanotic. No clubbing. Good capillary refill. SKIN: Abdominal incision covered Vital Signs (last 8hr) Date Time Temp Pulse Resp B/P (MAP) Pulse Ox O2 Delivery O2 Flow Rate FiO2 09/02/24 08:04 97.9 69 20 126/71 96 Room Air 09/02/24 03:53 97.9 69 16 125/70 96 Room Air LABS: Laboratory: Test 09/02/24 05:04 09/01/24 04:56 Range/Units Whole Blood Glucose 113 H 70-110 MG/DL White Blood Count 6.0 4.8-10.8 K/uL Red Blood Count 3.82 L 4.00-5.50 MIL/uL Hemoglobin 10.9 L 12.0-16.0 g/dL Hematocrit 34.9 L 36-48 % Mean Corpuscular Volume 91.4 79-99 fL Mean Corpuscular Hemoglobin 28.5 27.0-33.0 pg Mean Corpuscular Hemoglobin Concent 31.2 L 32.0-36.0 g/dL Red Cell Distribution Width 13.1 11.0-15.5 % Platelet Count 250 130-400 K/uL Mean Platelet Volume 9.2 7.5-10.5 fL Immature Granulocyte % (Auto) 0.3 0-1 % Neutrophils (%) (Auto) 58.5 40.0-77.0 % Lymphocytes (%) (Auto) 30.5 21.0-51.0 % Monocytes (%) (Auto) 7.4 3.0-13.0 % Eosinophils (%) (Auto) 3.0 0.0-8.0 % Basophils (%) (Auto) 0.3 0.0-5.0 % Neutrophils # (Auto) 3.5 1.8-7.7 K/uL Lymphocytes # (Auto) 1.8 1.0-4.8 K/uL Monocytes # (Auto) 0.4 0.1-1.0 K/uL Eosinophils # (Auto) 0.18 0.00-0.70 K/uL Basophils # (Auto) 0.02 0.00-0.20 K/uL Absolute Immature Granulocyte (auto 0.02 0-1 K/uL Nucleated Red Blood Cells 0.0 0.0-0.19 % Sodium Level 141 136-145 mmol/L Potassium Level 3.6 3.5-5.1 mmol/L Chloride Level 106 101-111 mmol/L Carbon Dioxide Level 30 21-32 mmol/L Blood Urea Nitrogen 8 7-18 mg/dL Creatinine 0.8 0.5-1.0 mg/dL Glomerular Filtration Rate Calc 98 >90 mL/min Random Glucose 116 H 70-105 mg/dL Total Calcium 9.2 8.5-10.1 mg/dL Total Bilirubin 0.4 0.2-1.0 mg/dL Direct Bilirubin 0.1 0.0-0.3 mg/dL Aspartate Amino Transf (AST/SGOT) 66 H 10-37 U/L Alanine Aminotransferase (ALT/SGPT) 160 H 12-78 U/L Alkaline Phosphatase 82 50-136 U/L Total Protein 6.7 6.0-8.3 g/dL Albumin 3.1 L 3.5-5.0 g/dL Triglycerides Level 107 30-200 mg/dL Cholesterol Level 122 <200 mg/dL LDL Cholesterol 71 0-99 mg/dL HDL Cholesterol 34 L 35-85 mg/dL Current Medications Medications (Trade) Dose Ordered Sig/Ara Route PRN Reason Start Time Stop Time Status Last Admin Dose Admin Acetaminophen/ Codeine Phosphate (TYLenol-coDEINE TAB) 2 tab Q6H PRN PO MODERATE PAIN (4-6) 08/29/24 14:30 09/28/24 14:29 08/31/24 21:54 2 TAB Ceftriaxone Sodium 2 gm/ Sodium Chloride 100 ml @ 200 mls/hr Q24H IV 08/25/24 20:00 08/25/24 20:13 DC Ceftriaxone Sodium (Rocephin 2gm Inj) 2 gm Q24H IVPB 08/25/24 20:30 09/04/24 20:29 09/01/24 21:08 2 GM Famotidine (Pepcid 20mg Vial) 20 mg BID IV 08/25/24 21:00 09/24/24 20:59 09/01/24 21:08 20 MG Fat Emulsion Intravenous 250 ml @ 42 mls/hr Q24H IV 08/26/24 14:00 09/25/24 13:59 09/01/24 13:20 42 MLS/HR Hydromorphone HCl (DiLAUDid 0.5MG INJ) 0.5 mg Q4H PRN IVP SEVERE PAIN (7-10) 08/27/24 01:00 08/28/24 10:07 DC 08/28/24 09:48 0.5 MG Hydromorphone HCl (DiLAUDid 0.5MG INJ) 0.5 mg Q4H PRN IVP SEVERE PAIN (7-10) 08/28/24 17:30 08/29/24 14:09 DC 08/29/24 12:55 0.5 MG Hydromorphone HCl (DiLAUDid 0.5MG INJ) 0.5 mg Q4H PRN IVP SEVERE PAIN (7-10) 08/25/24 18:30 08/27/24 00:43 DC 08/26/24 20:20 0.5 MG Hydromorphone HCl (DiLAUDid 0.5MG INJ) 0.5 mg Q6H PRN IVP SEVERE PAIN (7-10) 08/29/24 19:00 08/30/24 20:36 DC 08/30/24 13:47 0.5 MG Ketorolac Tromethamine (toRADol) 30 mg Q6H PRN IVP SEVERE PAIN (7-10) 08/28/24 10:00 08/28/24 17:26 DC 08/28/24 12:47 30 MG Ketorolac Tromethamine (toRADol) 30 mg Q6H PRN IVP SEVERE PAIN (7-10) 08/30/24 21:00 09/04/24 20:59 09/01/24 21:18 30 MG Lactated Ringer's 1,000 ml @ 100 mls/hr Q10H IV 08/25/24 20:00 09/24/24 19:59 08/30/24 21:10 100 MLS/HR Lidocaine (Lidocaine Patch 4%) 1 each BID TP 09/01/24 21:00 10/01/24 20:59 09/01/24 21:08 1 EACH Lorazepam (AtiVAN) 0.5 mg ONCE PRN IVP INSOMNIA 09/01/24 16:30 09/08/24 16:29 09/01/24 21:18 0.5 MG Morphine Sulfate (morPHINE 2MG SYG) 2 mg Q4H4 PRN IVP SEVERE PAIN (7-10) 08/27/24 14:00 08/28/24 10:07 DC 08/27/24 16:27 2 MG Octreotide Acetate (SandoSTATIN) 100 mcg BID IV 08/27/24 21:00 09/26/24 20:59 09/01/24 21:08 100 MCG Ondansetron HCl (zoFRAN 4MG INJ) 4 mg Q6H PRN IV NAUSEA/VOMITING 08/25/24 20:00 09/24/24 19:59 09/01/24 21:08 4 MG Pharmacy Profile Note (Pharmacy Communication) 1 each AD MISC 08/26/24 09:00 08/25/24 20:23 DC DIAGNOSTICS / RADIOLOGY: [ ] ASSESSMENT: Chest pain unspecified POA (resolved) Intractable nausea and abdominal pain POA (resolved) Acute urinary tract infection POA Postoperative pain POA Recent laparoscopic converted to an open laparotomy small bowel resection and reconstruction of jejunojejunal anastomosis POA Elevated liver enzymes POA (resolved) Elevated lipase POA(resolved) Recent small enterocutaneous fistula POA Obesity POA History of gastric bypass POA PLAN: * As per surgical team, patient should be discharged home when the TPN at home is arranged by case fitter. *Home health arrangements for potential TPN to be set up by case management *Patient had a fistulogram which showed a fistula into the small bowel from an anterior wall lesion and a CT abdomen/pelvis showed a small fistulous tract that extends into a small mid bowel loop which is subjacent to the open wound. No evidence of leak or obstruction seen. *No surgical intervention planned by general surgery. *Case management consult placed. *Continue on NPO *Continue patient on TPN at 88 mL/hour *Continue patient on Rocephin 2 gram IV for empiric coverage *Continue on Famotidine 20 mg IV bid for GI prophylaxis *We will replace electrolytes as needed per protocol *We will prn medication for fever,pain,cough and nausea *We will reconcile home meds once medlist available *We will request labs in am *Further orders to follow depending on above results Case discussed with attending physician and came up with above treatment and plan of care. ATTESTATION BY PHYSICIAN I have seen and examined the patient. I reviewed the documentation, medical decision making, and treatment plan as noted by the mid-level provider above. I agree with the findings and plan of care. Robbie Blankenship MD OBI,NEGRITO Gandara MD Sep 02, 2024 09:44
[2024-09-02 09:58] VITALS: O2SAT 96
[2024-09-02 11:51] VITALS: BP 121/70; PULSE 63; RESP 20; TEMP 98.1
[2024-09-02 16:14] VITALS: BP 128/78; PULSE 68; RESP 20; TEMP 98.3
[2024-09-02 20:00] VITALS: BP 128/74; PULSE 68; RESP 20; TEMP 97.8; O2SAT 97
[2024-09-02] MEDS: LORazepam 2 MG/ML 1 ML VIAL IVP ONE (21:29)
[2024-09-03] VITALS: BP 126/73; PULSE 62; RESP 20; TEMP 98
[2024-09-03] MEDS: CLINIMIX-E4.25%AA/D5+LYT2000ML 2,000 ML IV ONE (01:03)
[2024-09-03 04:00] VITALS: BP 131/66; PULSE 59; RESP 20; TEMP 98.5
[2024-09-03 04:43] LABS: HEMATOCRIT 35.4 % (36-48); MEAN CORPUSCULAR HEMOGLOBIN 28.6 pg (27.0-33.0); MEAN CORPUSCULAR HGB CONC 31.6 g/dL (32.0-36.0); MEAN CORPUSCULAR VOLUME 90.5 fL (79-99); NUCLEATED RED BLOOD CELLS 0.3 % (0.0-0.19); RED BLOOD CELL COUNT(AUTO) 3.91 MIL/uL (4.00-5.50); WHITE BLOOD COUNT (AUTO) 5.9 K/uL (4.8-10.8)
[2024-09-03 05:31] LABS: BILIRUBIN,TOTAL 0.4 mg/dL (0.2-1.0); CREATININE 0.7 mg/dL (0.5-1.0); POTASSIUM 3.8 mmol/L (3.5-5.1); TOTAL PROTEIN, SERUM 6.6 g/dL (6.0-8.3)
[2024-09-03 08:00] VITALS: BP 125/72; PULSE 58; RESP 18; TEMP 97.8; O2SAT 97
--- NOTE | 2024-09-03 10:12 | PN ---
[facility] PROGRESS NOTE Date of Service: Sep 03, 2024 Time of Service: 10:00 SUBJECTIVE: HPI This is a 34 year old with past medical history of morbid obesity and bowel obstruction and a surgical history of gastric bypass who presents to the ED for multiple complaints such as :abdominal pain,nausea, chills ,constipation and chest pain which all started 4 days ago.Patient states she had a gastric bypass surgery done on 06/2024 by and patient went home and was admitted on 06/23/2024 for bowel obstruction and on 06/27/2024 she underwent a laparoscopic converted to an open laparotomy small bowel resection and reconstruction of jejunojejunal anastomosis and 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 and patient was on IV antibiotic and TPN and surgical wound required abdominal dressing change TID and patient transitioned to LTAC at [facility].As per patient she was discharged home and being visited by home health nurse .As PERpatient her incision site is draining feces smell like and she started having nauseated but no vomiting.Patient reports she started having on and off chest pain and becoming weak.Today symptoms have been becoming worse midsternal chest pain is becoming persistent ,described as chest pressure which radiates to left arm associated with diaphoresis and shortness of breath while laying down.Patient states she called and her PCP who advised her to come to the ED for evaluation. Interval History 08/27/24:Lying in bed at the time of evaluation. Alert and oriented and in no obvious distress. Denies any chest pain at that this time. Patient has a post surgical incision wound on the abdomen with wet to dry dressing in place. Continues on TPN for adequate nutrition. Consult has been placed to General surgery, pending their recommendations. Will place an order to case management for possible transfer to a shelter acute care facility ([facility]) since patient is going to be on TPN for a while. 08/28/24: Lying in bed at the time of evaluation. Alert and oriented and in no obvious distress. Denies any chest pain at that this time. Patient has a post surgical incision wound on the abdomen with wet to dry dressing in place. Continues on TPN for adequate nutrition. Patient complains that she has not had a bowel movement in 5 days. Ordered Lactulose 30ml for constipation. Patient is scheduled for a fistulogram and a CT scan today 08/28/24. Continues with pain which she rates as a 9/10. Currently on Dilaudid 0.5mg and Morphine 2mg for pain. Added Ketorolac 30mg IV q8h for pain. 08/29/24: Lying in bed at the time of evaluation. Alert and oriented and in no obvious distress. Denies any chest pain at that this time. Patient has a post surgical incision wound on the abdomen with wet to dry dressing in place. Continues on TPN for adequate nutrition. Patient had a fistulogram which showed a fistula into the small bowel from an anterior wall lesion and a CT abdomen/pelvis showed a small fistulous tract that extends into a small mid bowel loop which is subjacent to the open wound. No evidence of leak or obstruction seen. Patient will be kept overnight for observation Home health arrangements for potential TPN to be set up by case management. 08/30/24:Lying in bed at the time of evaluation. Alert and oriented and in no obvious distress. Denies any chest pain at that this time. Patient has a post surgical incision wound on the abdomen with wet to dry dressing in place. Continues on TPN for adequate nutrition. Home health arrangements have been made for TPN to be administered at home. Just pending Dr Han to see patient prior to discharge. Plan is to discharge tomorrow. 08/31/24: Lying in bed at the time of evaluation. Alert and oriented and in no obvious distress. Denies any chest pain at that this time. Patient has a post surgical incision wound on the abdomen with wet to dry dressing in place. Continues on TPN for adequate nutrition. Patient is hemodynamically stable however has not yet been cleared for discharge by the general surgery team. Pending their discharge recommendations. 09/02/24: Patient seen at bedside. Alert and orientedc and in no obvious distress. Continues on TPN for nutrition. Denies any chest pain, abdominal pain, shortness of breath or palpitations. However complains of drainage of greenish colored fluid from the incision site. Denies any fever or chills. Patient was seen by Dr Toth yesterday. States that patient should be discharged home when the TPN at home is arranged by case fitter. 09/03/24: Patient seen at bedside. Alert and orientedc and in no obvious distress. Continues on TPN for nutrition. Denies any chest pain, abdominal pain, shortness of breath or palpitations. Denies any fever . Patient is hem odynamically stable. Labs and vital signs from this morning are unremarkable. Spoke to Dr Mclean, will see the patient this morning for evaluation befor discharge. As per case management, home health for TPN administration is already in place. REVIEW OF SYSTEMS CONSTITUTIONAL: Denies fevers or night sweats. No unintentional weight loss rep orted. NEUROLOGICAL: Denies headache, amaurosis fugax, motor weakness, sensory deficit, vertigo/spinning sensation, gait abnormalities, or tremors. ENT: No hearing loss, otalgia, otorrhea, rhinitis, rhinorrhea, hoarseness, or sore throat. CARDIOVASCULAR: Denies orthopnea, paroxysmal nocturnal dyspnea, palpitations, life-threatening arrhythmias, claudication. PULMONARY: Denies cough, phlegm/sputum, hemoptysis, pleuritic chest pain. SLEEP: Denies morning headaches, daytime somnolence or napping. Denies difficulty falling asleep, staying asleep, waking from sleep. Denies knowledge of snoring. GASTROINTESTINAL: Denies any type of dysphagia to either liquids or solids. Denies pyrosis, early satiety,, diarrhea, constipation, or changes in stool consistency or caliber. Denies coffee-ground emesis, hematemesis, hematochezia, or melanotic stools. GENITOURINARY: Denies frequency, urgency, nocturia, hematuria or incontinence (Storage/Irritative symptoms.) Low urinary stream, splitting of the voiding stream, terminal dribbling. ENDOCRINOLOGIC: Denies polyuria, polydipsia, polyphagia or heat/cold intolerances. HEMATOLOGIC: Denies thrombophilia/previous clots, or coagulopathy/bleeding disorders. ONCOLOGIC: Denies personal history of malignancy. DERMATOLOGIC: Denies rashes or pruritus. PSYCHIATRIC: Denies any suicidal or homicidal ideation. Denies hallucinations. PHYSICAL EXAM GENERAL APPEARANCE: The patient is awake, alert, and oriented, in no acute cardiopulmonary distress. NEUROLOGICAL: Cranial nerves II-XII grossly intact. Motor is 5/5 in bilateral upper and lower extremities proximal to distal. No sensory deficits. HEENT: Face is symmetric. Pupils are equal and reactive. Extraocular movements are intact. NECK: Supple. No JVD. No thyromegaly. No submental, submandibular, pre- /postauricular, occipital or supraclavicular lymphadenopathy. CHEST: Normal chest expansion. No Telemetry. LUNGS: Absence of any rales, rhonchi or any wheezing. CARDIOVASCULAR: Regular. S1 and S2 normal. No appreciable rubs, murmurs or gallops. ABDOMEN: Soft and nondistended. There is no rebound, voluntary guarding, or rigidity. : Deferred. No Olson. EXTREMITIES: Non-edematous and not cyanotic. No clubbing. Good capillary refill. SKIN: Abdominal incision covered Vital Signs (last 8hr) Date Time Temp Pulse Resp B/P (MAP) Pulse Ox O2 Delivery O2 Flow Rate FiO2 09/03/24 08:00 97.9 58 18 125/72 97 Room Air 09/03/24 04:00 98.4 59 20 131/66 96 Room Air LABS: Laboratory: Test 09/03/24 05:19 09/03/24 04:22 Range/Units Whole Blood Glucose 113 H 70-110 MG/DL White Blood Count 5.9 4.8-10.8 K/uL Red Blood Count 3.91 L 4.00-5.50 MIL/uL Hemoglobin 11.2 L 12.0-16.0 g/dL Hematocrit 35.4 L 36-48 % Mean Corpuscular Volume 90.5 79-99 fL Mean Corpuscular Hemoglobin 28.6 27.0-33.0 pg Mean Corpuscular Hemoglobin Concent 31.6 L 32.0-36.0 g/dL Red Cell Distribution Width 13.0 11.0-15.5 % Platelet Count 229 130-400 K/uL Mean Platelet Volume 9.6 7.5-10.5 fL Nucleated Red Blood Cells 0.3 H 0.0-0.19 % Sodium Level 139 136-145 mmol/L Potassium Level 3.8 3.5-5.1 mmol/L Chloride Level 106 101-111 mmol/L Carbon Dioxide Level 25 21-32 mmol/L Blood Urea Nitrogen 10 7-18 mg/dL Creatinine 0.7 0.5-1.0 mg/dL Glomerular Filtration Rate Calc 116 >90 mL/min Random Glucose 111 H 70-105 mg/dL Total Calcium 8.7 8.5-10.1 mg/dL Total Bilirubin 0.4 0.2-1.0 mg/dL Aspartate Amino Transf (AST/SGOT) 42 H 10-37 U/L Alanine Aminotransferase (ALT/SGPT) 115 H 12-78 U/L Alkaline Phosphatase 75 50-136 U/L Total Protein 6.6 6.0-8.3 g/dL Albumin 3.0 L 3.5-5.0 g/dL Current Medications Medications (Trade) Dose Ordered Sig/Ara Route PRN Reason Start Time Stop Time Status Last Admin Dose Admin Acetaminophen/ Codeine Phosphate (TYLenol-coDEINE TAB) 2 tab Q6H PRN PO MODERATE PAIN (4-6) 08/29/24 14:30 09/28/24 14:29 08/31/24 21:54 2 TAB Ceftriaxone Sodium 2 gm/ Sodium Chloride 100 ml @ 200 mls/hr Q24H IV 08/25/24 20:00 08/25/24 20:13 DC Ceftriaxone Sodium (Rocephin 2gm Inj) 2 gm Q24H IVPB 08/25/24 20:30 09/04/24 20:29 09/02/24 21:28 2 GM Famotidine (Pepcid 20mg Vial) 20 mg BID IV 08/25/24 21:00 09/24/24 20:59 09/03/24 09:12 20 MG Fat Emulsion Intravenous 250 ml @ 42 mls/hr Q24H IV 08/26/24 14:00 09/25/24 13:59 09/02/24 13:28 42 MLS/HR Hydromorphone HCl (DiLAUDid 0.5MG INJ) 0.5 mg Q4H PRN IVP SEVERE PAIN (7-10) 08/27/24 01:00 08/28/24 10:07 DC 08/28/24 09:48 0.5 MG Hydromorphone HCl (DiLAUDid 0.5MG INJ) 0.5 mg Q4H PRN IVP SEVERE PAIN (7-10) 08/28/24 17:30 08/29/24 14:09 DC 08/29/24 12:55 0.5 MG Hydromorphone HCl (DiLAUDid 0.5MG INJ) 0.5 mg Q4H PRN IVP SEVERE PAIN (7-10) 08/25/24 18:30 08/27/24 00:43 DC 08/26/24 20:20 0.5 MG Hydromorphone HCl (DiLAUDid 0.5MG INJ) 0.5 mg Q6H PRN IVP SEVERE PAIN (7-10) 08/29/24 19:00 08/30/24 20:36 DC 08/30/24 13:47 0.5 MG Ketorolac Tromethamine (toRADol) 30 mg Q6H PRN IVP SEVERE PAIN (7-10) 08/28/24 10:00 08/28/24 17:26 DC 08/28/24 12:47 30 MG Ketorolac Tromethamine (toRADol) 30 mg Q6H PRN IVP SEVERE PAIN (7-10) 08/30/24 21:00 09/04/24 20:59 09/02/24 21:30 30 MG Lactated Ringer's 1,000 ml @ 100 mls/hr Q10H IV 08/25/24 20:00 09/24/24 19:59 09/03/24 04:06 100 MLS/HR Lidocaine (Lidocaine Patch 4%) 1 each BID TP 09/01/24 21:00 10/01/24 20:59 09/03/24 09:12 1 EACH Lorazepam (AtiVAN) 0.5 mg ONCE PRN IVP INSOMNIA 09/01/24 16:30 09/02/24 18:35 DC 09/01/24 21:18 0.5 MG Morphine Sulfate (morPHINE 2MG SYG) 2 mg Q4H4 PRN IVP SEVERE PAIN (7-10) 08/27/24 14:00 08/28/24 10:07 DC 08/27/24 16:27 2 MG Octreotide Acetate (SandoSTATIN) 100 mcg BID IV 08/27/24 21:00 09/26/24 20:59 09/03/24 09:12 100 MCG Ondansetron HCl (zoFRAN 4MG INJ) 4 mg Q6H PRN IV NAUSEA/VOMITING 08/25/24 20:00 09/24/24 19:59 09/03/24 09:22 4 MG Pharmacy Profile Note (Pharmacy Communication) 1 each AD MISC 08/26/24 09:00 08/25/24 20:23 DC DIAGNOSTICS / RADIOLOGY: [ ] ASSESSMENT: Chest pain unspecified POA (resolved) Intractable nausea and abdominal pain POA (resolved) Acute urinary tract infection POA Postoperative pain POA Recent laparoscopic converted to an open laparotomy small bowel resection and reconstruction of jejunojejunal anastomosis POA Elevated liver enzymes POA (resolved) Elevated lipase POA(resolved) Recent small enterocutaneous fistula POA Obesity POA History of gastric bypass POA PLAN: *As per case management, home health for TPN administration has already been set up. *Home health arrangements for potential TPN to be set up by case management *Patient had a fistulogram which showed a fistula into the small bowel from an anterior wall lesion and a CT abdomen/pelvis showed a small fistulous tract that extends into a small mid bowel loop which is subjacent to the open wound. No evidence of leak or obstruction seen. *No surgical intervention planned by general surgery. *Case management consult placed. *Continue on NPO *Continue patient on TPN at 88 mL/hour *Continue patient on Rocephin 2 gram IV for empiric coverage *Continue on Famotidine 20 mg IV bid for GI prophylaxis *We will replace electrolytes as needed per protocol *We will prn medication for fever,pain,cough and nausea *We will reconcile home meds once medlist available *We will request labs in am *Further orders to follow depending on above results Case discussed with attending physician and came up with above treatment and plan of care. ATTESTATION BY PHYSICIAN I have seen and examined the patient. I reviewed the documentation, medical decision making, and treatment plan as noted by the mid-level provider above. I agree with the findings and plan of care. Robbie Blankenship MD OBI,NEGRITO Gandara MD Sep 03, 2024 10:12
[2024-09-03 11:45] VITALS: BP 139/83; PULSE 67; RESP 20; TEMP 97.8
[2024-09-03] MEDS ORDERED: LIDOP TP (14:03)
--- NOTE | 2024-09-03 14:18 | DS ---
Discharge Summary Hospital Course Summary: Patient Information: *Name: Pete Holt *Date of :88 *Admission Date: 08/25/24 Attending Physician:Dr Robbie Blankenship Admitting Diagnosis: Intractable nausea and vomiting, chest pain Course in Hospital: Patient was admitted to the hospital on 08/24/24 with symptoms of nausea, vomiting and chest pain. Patient was status post gastric bypass surgery by Dr Han with post operative fistula formation. Dr Mclean was notified about the case. A fistulogram and a CT abdomen and pelvis with contrast was done which showed a fistula into the small bowel from the anterior wall lesion. No surgical intervention was planned. Patient was started on Total Parenteral Nutrition (TPN) for adequate nutrition and her symptoms of pain was adequately managed with narcotics. Over the course of her hospitalization, her symptoms improved significantly and a discharge home with home health was ordered. Continue with TPN at home. Procedures performed: CBC, CMP, Fistulogram, CT abdomen/pelvis with contrast Discharge Instructions: *Follow up with your primary care physician in 2 - 3 days after discharge. *Continue all medications as prescribed. Do not discontinue or change dosages without consulting your PCP. *Gradually resume normal activities as tolerated. *Continue a balanced diet . Reduce salt intake to help manage BP. *Seek immediate medical attention if you experience chest pain, SOB or severe headache. *Smoking cessation is strongly advised. Resources for quitting smoking are available upon request. Discharged to: Home Condition on Discharge: Stable Demand Manager(s): General Surgery Procedure(s): Fistulogram, CT abdomen/pelvis with contrast Assessment/Plan: ASSESSMENT: Chest pain unspecified POA (resolved) Intractable nausea and abdominal pain POA (resolved) Acute urinary tract infection POA Postoperative pain POA Recent laparoscopic converted to an open laparotomy small bowel resection and reconstruction of jejunojejunal anastomosis POA Elevated liver enzymes POA (resolved) Elevated lipase POA(resolved) Recent small enterocutaneous fistula POA Obesity POA History of gastric bypass POA PLAN: *As per case management, home health for TPN administration has already been set up. *Home health arrangements for potential TPN to be set up by case management *Patient had a fistulogram which showed a fistula into the small bowel from an anterior wall lesion and a CT abdomen/pelvis showed a small fistulous tract that extends into a small mid bowel loop which is subjacent to the open wound. No evidence of leak or obstruction seen. *No surgical intervention planned by general surgery. *Case management consult placed. *Continue on NPO *Continue patient on TPN at 88 mL/hour *Continue patient on Rocephin 2 gram IV for empiric coverage *Continue on Famotidine 20 mg IV bid for GI prophylaxis *We will replace electrolytes as needed per protocol *We will prn medication for fever,pain,cough and nausea *We will reconcile home meds once medlist available *We will request labs in am *Further orders to follow depending on above results Case discussed with attending physician and came up with above treatment and plan of care. Discharge Instructions: Discharge Instructions *Continue on TPN (Amino acids/electrolytes/ Dextrose ) 2000ml @ 83ml/hr *Follow up with Dr Mclean in 2 - 3 days after discharge for management *Continue all medications as prescribed. Do not discontinue or change dosages without consulting your PCP. *Gradually resume normal activities as tolerated. *Continue a balanced diet . Reduce salt intake to help manage BP. *Seek immediate medical attention if you experience chest pain, SOB or severe h eadache. *Smoking cessation is strongly advised. Resources for quitting smoking are available upon request. Home Medications: Reported Medications Diphenhydramine HCl (Benadryl) 25 Mg Capsule, 25 MG PO AD PRN for ALLERGIES, CAP 06/07/24 Acetaminophen (Tylenol Extra Strength) 500 Mg Tablet, 1000 MG PO AD PRN for PAIN, TAB 06/07/24 Time spent arranging discharge: 1-30 minutes ATTESTATION BY PHYSICIAN I have seen and examined the patient. I reviewed the documentation, medical decision making, and treatment plan as noted by the mid-level provider above. I agree with the findings and plan of care. Robbie Blankenship MD OBI,NEGRITO Gandara MD Sep 03, 2024 14:18
--- NOTE | 2024-09-03 16:46 | NUR ---
note report given to home health nurse Cheryl hansen
--- NOTE | 2024-09-04 12:11 | NUR ---
Discharge Planning: Most recent labs faxed to [facility] this morning. Also Re-faxed oder to resume TPN. ( )
--- NOTE | 2024-09-04 14:26 | NUR ---
Discharge Update: Spoke to Juana at [facility]. States that they have everything they need. Formula will be at her home first thing in the morning.
== END 2024-09-03 17:00 | disposition home health service (06) | DRG 206 ==
LOC: EDH 13:29 → EDHIP 19:58 → 3DH 08-26 16:50
PROVIDERS: ADMIT Internal Medicine; ATTEND Internal Medicine
DX: M94.0 Chondrocostal junction syndrome [Tietze] (principal); N39.0 Urinary tract infection, site not specified; K31.6 Fistula of stomach and duodenum; R74.8 Abnormal levels of other serum enzymes; K57.30 Diverticulosis of large intestine without perforation or abscess without bleeding; E66.01 Morbid (severe) obesity due to excess calories; R07.89 Other chest pain; M54.9 Dorsalgia, unspecified; G89.18 Other acute postprocedural pain; Z98.84 Bariatric surgery status; Z83.3 Family history of diabetes mellitus; Z88.0 Allergy status to penicillin; Z79.899 Other long term (current) drug therapy; Z82.49 Family history of ischemic heart disease and other diseases of the circulatory system
CPT/HCPCS: 36415; 71045; 74176; 76080; 80048; 80053; 80061; 80076; 80305; 81001; 81025; 82550; 82948; 83690; 83735; 83880; 84484; 84703; 85025; 85027; 87086; 93005; 96374; 96375; G0378; J0696; J1171; J1885; J2060; J2270; J2354; J2405; J3480; J3490; J7030; J7120; Q9967

== ENCOUNTER 2025-07-02 09:23 | Emergency (ER) | payer BC ==
[~2025-07-02] VITALS: Ht 160 cm; Wt 68.0 kg
[~2025-07-02 09:23] MED LIST changes: +LIDOP TP
[2025-07-02 09:48] LABS: IMMATURE GRANULOCYTE ABSOLUTE 0.01 K/uL (0-1); NUCLEATED RED BLOOD CELLS 0.0 % (0.0-0.19); PLATELET COUNT (AUTO) 269 K/uL (130-400); RED BLOOD CELL COUNT(AUTO) 4.66 MIL/uL (4.00-5.50); RED CELL DISTRIBUTION WIDTH 14.0 % (11.0-15.5); WHITE BLOOD COUNT (AUTO) 6.1 K/uL (4.8-10.8)
[2025-07-02 10:00] LABS: CREATININE 0.6 mg/dL (0.5-1.0); GLOMERULAR FILTR. RATE CALC 119.0 mL/min (>90); GLUCOSE,RANDOM 87.0 mg/dL (70-105); SODIUM SERUM 137.0 mmol/L (136-145); UREA NITROGEN, BLOOD 9.0 mg/dL (7-18)
[2025-07-02 10:15] LABS: ASPARTATE AMINOTRANSFERASE 39.0 U/L (10-37); CREATINE KINASE, TOTAL 52.0 U/L (21-232); HCG,QUANTITATIVE 0.0 mIU/mL (0-5); TOTAL PROTEIN, SERUM 7.7 g/dL (6.0-8.3)
--- NOTE | 2025-07-02 10:42 | ERN ---
General Chief Complaint: Abdominal Pain Stated Complaint: ABDOMINAL PAIN Time Seen by MD: 09:26 Source: patient History of Present Illness Initial Comments Patient is a 35-year-old female coming in complaining of abdominal pain. Per patient this abdominal pain began last night. Patient does has a history of bowel obstruction. Allergies: Coded Allergies: Penicillins (Unverified Allergy, Unknown, 08/19/22) Home Meds Active Scripts Lidocaine (Lidoderm Patch 5%) 5 % Patch, 1 PATCH TP DAILY for 30 Days, #30 PATCH 0 Refills may wear up to 12 hours Prov:NEGRITO BUCHANAN MD 09/03/24 Reported Medications Diphenhydramine HCl (Benadryl) 25 Mg Capsule, 25 MG PO AD PRN for ALLERGIES, CAP 06/07/24 Acetaminophen (Tylenol Extra Strength) 500 Mg Tablet, 1000 MG PO AD PRN for PAIN, TAB 06/07/24 Past Medical History Past Medical History: No Pertinent History Medical History Other: Morbidly obese Past Surgical History: Other, Bariatric Surgery Surgical History Other: BOWEL OBSTRUCTION REPAIR Family History Family History: Negative Social History Social History: Lives with family ROS Dictation CONSTITUTIONAL: No chills, no fever, no weakness, no diaphoresis, no malaise. HEAD/FACE: No signs of trauma. EENT: No eye pain, no blurred vision, no tearing, no double vision, no ear pain, no ear discharge, no nose pain, no nasal congestion, no throat pain, no throat swelling, no mouth pain. RESPIRATORY: No cough, no orthopnea, no SOB, no stridor, no wheezing. CARDIOVASCULAR: No chest pain, no edema, no palpitations, no syncope. GASTROINTESTINAL/ABDOMINAL: abdominal pain, no constipation, no diarrhea, no nausea, no vomiting. GENITOURINARY: No abnormal discharge, no dysuria, no frequent urination, no hematuria. No complaints of pain in the genitals. MUSCULOSKELETAL: No back pain, no gout, no joint pain, no joint swelling, no muscle pain, no muscle stiffness, no neck pain. INTEGUMENTARY: No change in color, no change in hair/nails, no dryness, no lesion, no lumps, no rash. NEUROLOGICAL/PSYCH: No anxiety, not depressed, no emotional problem, no headache, no numbness, no pre-existing deficit, no history of seizures, no t remors, no weakness. HEMATOLOGIC/LYMPHATIC: Not anemic, no history of blood clots, no apparent bleeding, no bruising, glands not swollen. All Systems Negative, Except as Noted. Physical Exam Physical Exam Dictation VITAL SIGNS: Reviewed. GENERAL APPEARANCE: Alert, oriented x3, no acute distress, obese. HEAD AND FACE: Non-traumatic. EYES: PERRL, pink conjunctivas, eyelid no trauma, anterior chamber clear. EARS: Pinnas intact and no signs of trauma or erythema. Ear canals clear and no discharge. TMs no erythema. NOSE: No discharge, no bleeding. OROPHARYNX: Mouth normal, teeth no caries, tongue pink. Pharynx clear, no erythema. Tonsils no exudates, no abscesses noted. Mucous membrane moist. NECK: Supple, non-tender, no thyromegaly, no masses, no JVD, no bruits. BREAST: Deferred. CHEST: No tenderness, no crepitus, no paradoxical movement, no retractions. LUNGS: Clear, well-ventilated, symmetric, no rales, no wheezing, no rhonchi, no stridor, good breath sounds bilaterally. HEART: Regular rate, regular rhythm, no murmur, no gallops. VASCULAR: No peripheral edema. ABDOMEN: Soft, positive bowel sounds, distended, no guarding, tender, no rebound, no masses no hepatomegaly, no splenomegaly, no Higuera's sign, no hernias. RECTAL: Deferred. GENITAL: Deferred. NEUROLOGICAL: Normal speech, gross motor function intact, gross sensory func tion intact. MUSCULOSKELETAL: Neck nontender, full range of motion, back nontender, full range of motion. EXTREMITIES: Nontender, full range of motion. SKIN: Color pink, dry, no turgor, no rash, no lacerations, no abrasions, no contusions. LYMPHATICS: Deferred. Results Laboratory and Microbiology Lab and Micro Result Laboratory Tests Test 07/02/25 09:41 07/02/25 11:36 White Blood Count 6.1 K/uL (4.8-10.8) Red Blood Count 4.66 MIL/uL (4.00-5.50) Hemoglobin 12.1 g/dL (12.0-16.0) Hematocrit 39.2 % (36-48) Mean Corpuscular Volume 84.1 fL (79-99) Mean Corpuscular Hemoglobin 26.0 pg (27.0-33.0) L Mean Corpuscular Hemoglobin Concent 30.9 g/dL (32.0-36.0) L Red Cell Distribution Width 14.0 % (11.0-15.5) Platelet Count 269 K/uL (130-400) Mean Platelet Volume 9.7 fL (7.5-10.5) Immature Granulocyte % (Auto) 0.2 % (0-1) Neutrophils (%) (Auto) 60.4 % (40.0-77.0) Lymphocytes (%) (Auto) 29.9 % (21.0-51.0) Monocytes (%) (Auto) 6.5 % (3.0-13.0) Eosinophils (%) (Auto) 2.5 % (0.0-8.0) Basophils (%) (Auto) 0.5 % (0.0-5.0) Neutrophils # (Auto) 3.7 K/uL (1.8-7.7) Lymphocytes # (Auto) 1.8 K/uL (1.0-4.8) Monocytes # (Auto) 0.4 K/uL (0.1-1.0) Eosinophils # (Auto) 0.15 K/uL (0.00-0.70) Basophils # (Auto) 0.03 K/uL (0.00-0.20) Absolute Immature Granulocyte (auto 0.01 K/uL (0-1) Nucleated Red Blood Cells 0.0 % (0.0-0.19) Red Blood Cell Morphology See comments Sodium Level 137 mmol/L (136-145) Potassium Level 3.6 mmol/L (3.5-5.1) Chloride Level 103 mmol/L (101-111) Carbon Dioxide Level 27 mmol/L (21-32) Blood Urea Nitrogen 9 mg/dL (7-18) Creatinine 0.6 mg/dL (0.5-1.0) Glomerular Filtration Rate Calc 119 mL/min (>90) Random Glucose 87 mg/dL (70-105) Total Calcium 9.2 mg/dL (8.5-10.1) Total Bilirubin 0.4 mg/dL (0.2-1.0) Aspartate Amino Transf (AST/SGOT) 39 U/L (10-37) H Alanine Aminotransferase (ALT/SGPT) 71 U/L (12-78) Alkaline Phosphatase 154 U/L (50-136) H Total Creatine Kinase 52 U/L (21-232) # Total Protein 7.7 g/dL (6.0-8.3) Albumin 3.8 g/dL (3.5-5.0) Lipase 20 U/L (16-77) Human Chorionic Gonadotropin, Quant 0 mIU/mL (0-5) Urine Color YELLOW (YELLOW) Urine Appearance CLEAR (CLEAR) Urine pH 6.0 (5.0-8.0) Urine Specific Wallace 1.027 (1.001-1.031) Urine Protein NEGATIVE mg/dL (NEGATIVE) Urine Glucose (UA) NEGATIVE mg/dL (NEGATIVE) Urine Ketones 10 mg/dL (NEGATIVE) H Urine Occult Blood NEGATIVE (NEGATIVE) Urine Nitrate NEGATIVE (NEGATIVE) Urine Bilirubin NEGATIVE mg/dL (NEGATIVE) Urine Urobilinogen 0.2 mg/dL (0.2-1.0) Urine Leukocyte Esterase 75 Jennifer/uL (NEGATIVE) H Urine RBC 0-1 /HPF (0-1) Urine WBC 2-5 /HPF (0-1) H Urine Squamous Epithelial Cells MOD /HPF (0-2) Urine Bacteria RARE /HPF (None Seen) Urine HCG, Qualitative NEGATIVE (NEGATIVE) Labs Reviewed?: Yes EKG/XRAY/US/CT/MRI CT Scan Comment [place] [address] [place] [id number] IMAGING REPORT Signed PATIENT: KIKI HENDRIX MR#: [id number] : 1990 SEX: F AGE: 35 LOCATION: ED ORDER 105 STATUS: REG ER REPORT#: [id number] SERVICE [id number] REASON: abd distension ORDERING PHYSICIAN: LINDA BROWN MD PROCEDURE: ABD PEL WO - CT ABDOMEN/PELVIS W/O CONTRAST EXAM: CT Abdomen and Pelvis without IV contrast CLINICAL HISTORY: Abdominal distention. TECHNIQUE: Thin collimated axial CT images of the abdomen and pelvis were obtained with sagittal and coronal reformatted images also submitted. CT scan is done according to ALARA (As Low As Reasonably Achievable). CONTRAST: None. COMPARISON: 08/28/24 11:06 [address] - CT ABDOMEN/PELVIS W/O FINDINGS: Unremarkable visualized lung parenchyma. No focal abnormality within the liver, pancreas, spleen, adrenals, or kidneys. Status post cholecystectomy. There is prior stomach and bowel surgery. There is no obvious bowel wall thickening. Bowel loops are normal in caliber without evidence of obstruction or ileus. No acute appendicitis. There is no abnormality within the urinary bladder. Unremarkable reproductive organs. Intrauterine metallic contraceptive device in place. No lymphadenopathy. No free fluid. There is no acute osseous abnormality. IMPRESSIONS: No acute process in the abdomen or pelvis. No bowel obstruction. /[place] DICTATED BY: ОЛЬГА OROZCO Jr., MD DATE: 07/02/25 1303 ELECTRONICALLY SIGNED BY: ОЛЬГА OROZCO Jr., MD DATE: 07/02/25 1303 [facility] MDM: Differential diagnosis: Gastritis, UTI, Rationale: Tests considered and ordered secondary to shared decision making include: Previous outside records reviewed: Old ER visits. Risk of complication and/or morbidity or mortality of patient management: None Medications-Per medication reconciliation Need for hospitalization: Patient does not meet criteria for hospitalization. Need for emergency major/minor surgery: No Patient is a 35-year-old female coming in complaining of abdominal pain. Laboratory workup and imaging study negative for any acute findings. Patient will be discharged in stable condition patient did get a GI cocktail states he feels much better. ED Course Orders Procedure Category Date Status Time Cbc With Differential LAB 07/02/25 Complete : Comprehensive LAB 07/02/25 Complete Metabolic Panel 09: Hcg,Quantitative LAB 07/02/25 Complete : ,Urine Test LAB 07/02/25 Complete : Urinalysis Profile LAB 07/02/25 Complete : Creatine Kinase, Total LAB 07/02/25 Complete : Lipase LAB 07/02/25 Complete : Ct Abdomen/Pelvis W/O CT 07/02/25 Resulted Contrast 10:54 Ketorolac PHA 07/02/25 Complete Tromethamine 30mg/Ml 12:00 Culture Urine DANILO 07/02/25 In Process 12:04 Lidocaine Hcl 2% PHA 07/02/25 Complete Viscous (Lidocaine Hcl 12:30 Mag/Alum/Simeth 30ml PHA 07/02/25 Complete (Maalox Plus 30ml) 12:30 Current Medications Medications (Trade) Dose Ordered Sig/Ara Route PRN Reason Start Time Stop Time Status Last Admin Dose Admin Al Hydroxide/Mg Hydroxide (MAALox PLUS 30ML) 30 ml ONCE ONCE PO 07/02/25 12:30 07/02/25 12:36 DC 07/02/25 12:43 Ketorolac Tromethamine (toRADol) 30 mg ONCE ONCE IVP 07/02/25 12:00 07/02/25 12:01 DC 07/02/25 11:58 Lidocaine HCl (Lidocaine HCl 2% Viscous) 10 ml ONCE ONCE PO 07/02/25 12:30 07/02/25 12:36 DC 07/02/25 12:43 Vital Signs Date Time Temp Pulse Resp B/P (MAP) Pulse Ox O2 Delivery O2 Flow Rate FiO2 07/02/25 11:41 98.4 61 20 138/56 100 Room Air* 0 21 07/02/25 09:24 98.4 61 20 138/56 100 Room Air DX & DISP Disposition: Discharge Departure Impression: Primary Impression: UTI (urinary tract infection) Additional Impression: ACUTE GASTRITIS WITHOUT BLEEDING Condition: Stable Scripts Ciprofloxacin HCl (Cipro) 250 Mg Tablet 1 TAB PO BID for 7 Days, #14 TAB 0 Refills Prov: LINDA BROWN MD 07/02/25 Pantoprazole Sodium (Protonix) 40 Mg Ectab 1 TAB PO DAILY for 30 Days, #30 TAB 0 Refills Prov: LINDA BROWN MD 07/02/25 Additional Instructions: FOLLOW-UP WITH PRIMARY CARE PROVIDER IN 1 TO 2 DAYS. TAKE MEDICATIONS DIRECTED HERE IN THE EMERGENCY ROOM. OKAY TO CONTINUE HOME MEDICATIONS UNLESS OTHERWISE DISCUSSED DURING YOUR VISIT IN THE EMERGENCY ROOM TODAY. RETURN TO YOUR NEAREST EMERGENCY ROOM IF SYMPTOMS WORSEN OR IF THERE IS NO IMPROVEMENT. CALL 911 IF YOU NEED IMMEDIATE ASSISTANCE. TAKE TYLENOL [id number] NEEDED AND IF NO CONTRAINDICATIONS ARE PRESENT. INCREASE ORAL HYDRATION. A WOUND CULTURE OR URINE CULTURE WAS ORDERED HERE IN THE EMERGENCY ROOM DEPARTMENT PLEASE FOLLOW-UP WITH PRIMARY CARE PROVIDER AND ADVISE THEM TO GET REPORTS FROM OUR FACILITY. IF YOU HAD ANY ANA CRISTINA WRAP/SPLINTS THAT WERE APPLIED HERE, PLEASE DO NOT REMOVE THEM UNTIL YOU SEE YOUR PRIMARY CARE OR SPECIALTY. Referrals: Referrals: SELF,REFERRAL (PCP) GUSTAVO SAVAGE MD Time of Disposition: 13:01 LINDA BROWN MD Jul 02, 2025 10:41
[2025-07-02 12:01] LABS: APPEARANCE,URINE CLEAR (CLEAR); GLUCOSE, URINE (UA) NEGATIVE (NEGATIVE); LEUKOCYTE ESTERASE ,URINE 75 Leu/uL (NEGATIVE); NITRATE,URINE NEGATIVE (NEGATIVE); OCCULT BLOOD,URINE NEGATIVE (NEGATIVE)
[2025-07-02 12:03] LABS: HCG,QUALITATIVE URINE NEGATIVE (NEGATIVE)
[2025-07-02 12:04] LABS: ADD UA MICROSCOPIC YES
--- NOTE | 2025-07-02 12:04 | HMCIMG ---
EXAM: CT Abdomen and Pelvis without IV contrast CLINICAL HISTORY: Abdominal distention. TECHNIQUE: Thin collimated axial CT images of the abdomen and pelvis were obtained with sagittal and coronal reformatted images also submitted. CT scan is done according to ALARA (As Low As Reasonably Achievable). CONTRAST: None. COMPARISON: 08/28/24 11:06 [address] - CT ABDOMEN/PELVIS W/O FINDINGS: Unremarkable visualized lung parenchyma. No focal abnormality within the liver, pancreas, spleen, adrenals, or kidneys. Status post cholecystectomy. There is prior stomach and bowel surgery. There is no obvious bowel wall thickening. Bowel loops are normal in caliber without evidence of obstruction or ileus. No acute appendicitis. There is no abnormality within the urinary bladder. Unremarkable reproductive organs. Intrauterine metallic contraceptive device in place. No lymphadenopathy. No free fluid. There is no acute osseous abnormality. IMPRESSIONS: No acute process in the abdomen or pelvis. No bowel obstruction. /[place]
[2025-07-02 12:10] LABS: SQUAMOUS EPITHELIAL CELL,UR MOD /HPF (0-2)
[2025-07-02] MEDS: MAG/ALUM/SIMETH 30 ML UDCUP PO ONE (12:43)
[2025-07-02] MEDS: LIDOCAINE HCL 2% VISCOUS 15 ML UDCUP PO ONE (12:43)
[2025-07-02] MEDS ORDERED: PANT40TA55 PO (13:02)
[2025-07-02] MEDS ORDERED: CIPR-279 PO (13:02)
[2025-07-02 13:16] VITALS: BP 127/62; PULSE 61; RESP 20; TEMP 98.4; O2SAT 100
== END 2025-07-02 13:27 | disposition home or self-care (01) ==
LOC: EDH 09:23
DX: N39.0 Urinary tract infection, site not specified (principal); K29.00 Acute gastritis without bleeding; E66.01 Morbid (severe) obesity due to excess calories; R10.2 Pelvic and perineal pain; Z88.0 Allergy status to penicillin; Z68.26 Body mass index [BMI] 26.0-26.9, adult
CPT/HCPCS: 99284; 74176; 96374; 82550; 80053; 84702; 83690; 85025; 87086 ×2; 87186; 81001; 81025; 36415; J1885